=== PATIENT | female | born 1960 | race Caucasian/White ===

== ENCOUNTER 2019-10-10 14:52 | Emergency (ER) | payer BC ==
[~2019-10-10] VITALS: Ht 182.9 cm; Wt 81.6 kg
--- OUTSIDE RECORDS SUMMARY | 2019-10-10 14:55 | XMS REPORT | Summary of Care ---
Author Organization Unknown Address Unknown Phone Unavailable Encounter [facility](ADIEL) [id number] Date(s): 04/09/14 - 04/16/14 [facility] [address] [address] Discharge Disposition: Home Physician Attending: Felix Franco MD Physician Admitting: Felix Franco MD Physician_Referring: Felix Franco MD Reason for Visit [id number] Vital Signs 1 2 3 Most recent to oldest [Reference Range]: 182.88 cm (04/02/14 2:24 PM) Height 93.6 kg (04/10/14 4:43 AM) Current Weight 97.8 DegF (04/16/14 11:20 AM) 98.2 DegF (04/16/14 7:25 AM) 97.6 DegF (04/16/14 3:45 AM) Temperature Oral [96.4-99.1 DegF] 13 mmHg *LOW* (04/16/14 11:20 AM) 115 mmHg (04/16/14 7:25 AM) 109 mmHg (04/16/14 3:45 AM) Systolic Blood Pressure [90-140 mmHg] 78 mmHg (04/16/14 11:20 AM) 78 mmHg (04/16/14 7:25 AM) 71 mmHg (04/16/14 3:45 AM) Diastolic Blood Pressure [60-90 mmHg] 16 BRMIN (04/16/14 11:20 AM) 14 BRMIN (04/16/14 7:44 AM) 16 BRMIN (04/16/14 7:25 AM) Respiratory Rate [14-20 BRMIN] 76 bpm (04/16/14 11:20 AM) 74 bpm (04/16/14 7:25 AM) 66 bpm (04/16/14 3:45 AM) Peripheral Pulse Rate [60-100 bpm] 95.7 kg (04/10/14 10:58 AM) 90.909 kg (04/02/14 2:24 PM) Weight 27.18 m2 (04/02/14 2:24 PM) Body Mass Index Problem List Condition Effective Dates Status Health Status Informan t ADD (attention Active deficit disorder)(Confirmed) Anxiety(Confirmed) Active Back pain(Confirmed) Active Bipolar(Confirmed) Active Bulging Resolved disc(Confirmed) COPD(Confirmed) Active Dizziness(Confirmed) Active 1 GERD - Active Gastro-esophageal reflux disease(Confirmed) Hyperlipidemia(Confi Active rmed) Hypertension(Confirm Active ed) Migraine(Confirmed) Resolved Sciatica(Confirmed) Active Seizure(Confirmed) Resolved Smoker(Confirmed)2 Active Thalassemia(Confirme Active d) TIA (transient Resolved ischemic attack)(Confirmed)3 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 (Same as: Tylenol) Start Date: 04/09/14 Stop Date: 04/16/14 Status: Discontinued acetaminophen-hydrocodone 325 mg-5 mg oral tablet 1 tab, Route: PO, Drug Form: TAB, Dosing Weight 90.909, kg, Q4H, PRN Pain Score 4-6, Start date: 04/09/14 13:43:00, Duration: 30 day, Stop date: 05/09/14 13:42: 00 Notes: (Same as: [place] 325/5) Do not exceed 4gm/day of acetaminophen. Start Date: 04/09/14 Stop Date: 04/16/14 Status: Discontinued Adderall 20 mg, Route: PO, Drug form: TAB, QNoon, Dosing Weight 95.7, kg, Start date: 02/19 12:00:00, Duration: 30 day, Stop date: 05/16/14 12:00:00 Start Date: 04/17/14 Stop Date: 04/16/14 Status: Deleted Adderall C-II - Controlled Med PT's Own Med Adderall C-II - Controlled Med PT's Own Med, 20 mg, Drug form: MISC, Rou te: PO, QNoon, 04/17/14 12:00:00, Duration: 30 day, Stop date: 05/16/14 12:00:00 Start Date: 04/17/14 Stop Date: 04/16/14 Status: Canceled aspirin 81 mg tablet, enteric coated 81 mg, 1 tab, Route: PO, Drug form: ECTAB, Daily, Dosing Weight 90.909, kg, Star t date: 04/09/14 23:15:00, Duration: 30 day, Stop date: 05/09/14 9:00:00 Notes: Do not crush or chew.(Same As: Ecotrin) Start Date: 04/09/14 Stop Date: 04/16/14 Status: Discontinued atorvastatin 20 mg, 2 tab, Route: PO, Drug form: TAB, Bedtime, Dosing Weight 95.7, kg, Start date: 04/12/14 21:00:00, Duration: 30 day, Stop date: 05/11/14 21:00:00 Notes: (Same As: Lipitor) Start Date: 04/12/14 Stop Date: 04/16/14 Status: Discontinued carBAMazepine 400 mg, 2 tab, Route: PO, Drug form: TAB, QPM, Dosing Weight 95.7, kg, Start michael e: 04/14/14 17:00:00, Duration: 30 day, Stop date: 05/13/14 17:00:00 Notes: With food. (Same As: Tegretol) Start Date: 04/14/14 Stop Date: 04/16/14 Status: Discontinued carBAMazepine 600 mg, 3 tab, Route: PO, Drug form: ERTAB, QAM, Dosing Weight 90.909, kg, Start date: 04/14/14 9:00:00, Duration: 30 day, Stop date: 05/13/14 9:00:00 Notes: Do not crush or chew. (Same As: Tegretol XR) Start Date: 04/14/14 Stop Date: 04/16/14 Status: Discontinued carBAMazepine 300 mg, 3 tab, Route: PO, Drug form: ERTAB, BID, Dosing Weight 90.909, kg, Start date: 04/09/14 23:30:00, Duration: 30 day, Stop date: 05/09/14 9:30:00 Notes: Do not crush or chew. (Same As: Tegretol XR) Start Date: 04/09/14 Stop Date: 04/13/14 Status: Discontinued cefTRIAXone + Sodium Chloride 0.9% IV 100 mL 1 gm, Route: IVPB, [id number], Dosing Weight 95.7, kg, Start date: 04/13/14 22:00:0 0, Duration: 30 day, Stop date: 05/12/14 22:00:00 Notes: (Same As: Rocephin). Use with 100ml NS mini-bag PLUS and infuse over 30 min Start Date: 04/13/14 Stop Date: 04/16/14 Status: Discontinued clindamycin + Sodium Chloride 0.9% IV 100 mL 900 mg, 6 mL, Route: IVPB, Drug form: INJ, PRE OP, Dosing Weight 88.864, kg, Sta rt date: 04/02/14 15:00:00, Duration: 8 day, Stop date: 04/10/14 14:59:00 Notes: (Same As: Cleocin) Start Date: 04/02/14 Stop Date: 04/10/14 Status: Completed clonazePAM 2 mg, 2 tab, Route: PO, Drug form: TAB, Daily, Dosing Weight 95.7, kg, Start michael e: 04/17/14 9:00:00, Duration: 30 day, Stop date: 05/16/14 9:00:00 Notes: (Same As: KlonoPIN) Start Date: 04/17/14 Stop Date: 04/16/14 Status: Canceled clopidogrel 75 mg, 1 tab, Route: PO, Drug form: TAB, Daily, Dosing Weight 95.7, kg, Start da te: 04/17/14 9:00:00, Duration: 30 day, Stop date: 05/16/14 9:00:00 Notes: (Same As: Plavix) Start Date: 04/17/14 Stop Date: 04/16/14 Status: Canceled docusate sodium 100 mg oral capsule 100 mg, 1 cap, Route: PO, Drug form: CAP, BID, Dosing Weight 90.909, kg, Start d ate: 04/09/14 17:00:00, Duration: 30 day, Stop date: 05/09/14 9:00:00 Notes: (Same as: Colace) (Do Not Crush) Start Date: 04/09/14 Stop Date: 04/16/14 Status: Discontinued DuoNeb inhalation solution 3 ml, Route: INHALATION, Drug Form: SOLN, Dosing Weight 95.7, kg, PRN, PRN Respi ratory Protocol, Start date: 04/11/14 11:52:00, Duration: 30 day, Stop date: 07/21 11:51:00 Notes: (Same as: Duoneb) Start Date: 04/11/14 Stop Date: 04/16/14 Status: Discontinued enoxaparin 40 mg, Route: SUB-Q, Drug form: INJ, Q24H, Dosing Weight 88.864, kg, Start date: 04/09/14 14:00:00, Duration: 30 day, Stop date: 05/08/14 14:00:00 Start Date: 04/09/14 Stop Date: 04/09/14 Status: Discontinued fentaNYL 25 microgram, Route: IVP, Q5Min, Dosing Weight 90.909, kg, PRN Pain Score 4-6, S tart date: 04/09/14 13:43:00, Duration: 4 doses or times, Stop date: Limited # o f times Start Date: 04/09/14 Stop Date: 04/09/14 Status: Discontinued flumazenil 0.2 mg, Route: IVP, PRN, Dosing Weight 90.909, kg, PRN Benzodiazepine Reversal, Initial dose, Start date: 04/09/14 13:43:00, Duration: 30 day, Stop date: 13:42:00 Start Date: 04/09/14 Stop Date: 04/09/14 Status: Discontinued FLUoxetine See Instructions, 0 Refill(s) Start Date: 04/02/14 Status: Ordered folic acid 0.4 mg, 1 tab, Route: PO, Drug form: TAB, Daily, Dosing Weight 95.7, kg, Start d ate: 04/17/14 9:00:00, Duration: 30 day, Stop date: 05/16/14 9:00:00 Start Date: 04/17/14 Stop Date: 04/16/14 Status: Canceled Geodon 160 mg, 2 cap, Route: PO, Drug form: CAP, Bedtime, Dosing Weight 90.909, kg, Sta rt date: 04/12/14 21:00:00, Duration: 30 day, Stop date: 05/11/14 21:00:00 Notes: (Same As: Cindy) Start Date: 04/12/14 Stop Date: 04/16/14 Status: Discontinued Geodon 80 mg, 1 cap, Route: PO, Drug form: CAP, Bedtime, Dosing Weight 90.909, kg, Star t date: 04/09/14 23:30:00, Duration: 30 day, Stop date: 05/09/14 21:00:00 Notes: (Same As: Cindy) Start Date: 04/09/14 Stop Date: 04/12/14 Status: Discontinued hydrALAZINE 10 mg, 0.5 mL, Route: IVP, Drug form: INJ, Q6H, Dosing Weight 88.864, kg, PRN El evated BP, Start date: 04/09/14 13:43:00, Duration: 30 day, Stop date: 05/09/14 13:42:00, SBP>160 mmHg. Notes: (Same as: Apresoline)Push over 5 minutes Start Date: 04/09/14 Stop Date: 04/16/14 Status: Discontinued hydromorphone 0.3 mg, 0.3 mL, Route: IVP, Drug form: INJ, Q3H, Dosing Weight 90.909, kg, PRN P ain Score 4-6, Start date: 04/09/14 13:43:00, Duration: 30 day, Stop date: 05/09 13:42:00 Start Date: 04/09/14 Stop Date: 04/16/14 Status: Discontinued Imitrex 50 mg oral tablet 50 mg, 2 tab, Route: PO, Drug form: TAB, ONCE, Dosing Weight 95.7, kg, PRN Heada aki 4-6, Start date: 04/16/14 15:27:00 Notes: (Same As: Imitrex) Start Date: 04/16/14 Stop Date: 04/16/14 Status: Completed influenza virus vaccine, inactivated 0.5 ml, Route: IM, Drug Form: SUSP, Daily, Start date: 04/10/14 9:00:00, Duratio n: 1 doses or times, Stop date: 04/10/14 9:00:00 Notes: (Same as: Fluzone Quadrivalent) Start Date: 04/10/14 Stop Date: 04/09/14 Status: Canceled KlonoPIN 1 mg, 1 tab, Route: PO, Drug form: TAB, BID, Dosing Weight 90.909, kg, Start michael e: 04/09/14 23:30:00, Duration: 30 day, Stop date: 05/09/14 17:00:00 Notes: (Same As: KlonoPIN) Start Date: 04/09/14 Stop Date: 04/10/14 Status: Discontinued KlonoPIN 1 mg, 1 tab, Route: PO, Drug form: TAB, BID, Dosing Weight 90.909, kg, Start michael e: 04/13/14 9:00:00, Duration: 30 day, Stop date: 05/12/14 17:00:00 Notes: (Same As: KlonoPIN) Start Date: 04/13/14 Stop Date: 04/16/14 Status: Discontinued KlonoPIN 0.5 mg, 1 tab, Route: PO, Drug form: TAB, BID, Dosing Weight 90.909, kg, Start d ate: 04/11/14 9:00:00, Duration: 30 day, Stop date: 05/10/14 17:00:00 Notes: (Same As: KlonoPIN) Start Date: 04/11/14 Stop Date: 04/12/14 Status: Discontinued Lactated Ringers Injection IV 1000 mL 1,000 mL, Rate: 25 ml/hr, Infuse over: 40 hr, Route: IV, Dosing Weight 90.909 kg , Total Volume: 1,000, Start date: 04/09/14 11:35:00, Duration: 30 day, Stop michael e: 05/09/14 11:34:00 Start Date: 04/09/14 Stop Date: 04/09/14 Status: Discontinued lithium 600 mg, 2 cap, Route: PO, Drug form: CAP, TID, Dosing Weight 95.7, kg, Start michael e: 04/16/14 17:00:00, Duration: 30 day, Stop date: 05/16/14 16:00:00 Notes: Give with food. (Same as: [place] Carbonate) Start Date: 04/16/14 Stop Date: 04/16/14 Status: Discontinued lithium 600 mg oral capsule 600 mg = 1 cap, PO, TID, 0 Refill(s) Start Date: 04/02/14 Status: Ordered lithium carbonate 300 mg, 1 cap, Route: PO, Drug form: CAP, BID, Dosing Weight 90.909, kg, Start d ate: 04/14/14 9:00:00, Duration: 30 day, Stop date: 05/13/14 17:00:00 Notes: Give with food. (Same as: [place] Carbonate) Start Date: 04/14/14 Stop Date: 04/16/14 Status: Discontinued lithium carbonate 300 mg, 1 cap, Route: PO, Drug form: CAP, TID, Dosing Weight 90.909, kg, Start d ate: 04/13/14 9:00:00, Duration: 30 day, Stop date: 05/12/14 17:00:00 Notes: Give with food. (Same as: [place] Carbonate) Start Date: 04/13/14 Stop Date: 04/13/14 Status: Discontinued lithium carbonate 150 mg, 1 cap, Route: PO, Drug form: CAP, TID, Dosing Weight 90.909, kg, Start d ate: 04/09/14 23:30:00, Duration: 30 day, Stop date: 05/09/14 17:00:00 Notes: Give with food. (Same as: [place] Carbonate) Start Date: 04/09/14 Stop Date: 04/12/14 Status: Discontinued Lovenox 40 mg, 0.4 mL, Route: SUB-Q, Drug form: INJ, [id number], Dosing Weight 88.864, kg, Start date: 04/10/14 6:00:00, Duration: 30 day, Stop date: 05/09/14 6:00:00 Notes: (Same as: Lovenox) Start Date: 04/10/14 Stop Date: 04/16/14 Status: Discontinued morphine Sulfate 2 mg, Route: IVP, Q5Min, Dosing Weight 90.909, kg, PRN Pain Score 4-6, Start michael e: 04/09/14 13:43:00, Duration: 5 doses or times, Stop date: Limited # of times Start Date: 04/09/14 Stop Date: 04/09/14 Status: Discontinued naloxone 0.04 mg, Route: IVP, Q2MIN, Dosing Weight 90.909, kg, PRN Narcotic Reversal, Sta rt date: 04/09/14 13:43:00, Duration: 8 doses or times, Stop date: Limited # of times Start Date: 04/09/14 Stop Date: 04/09/14 Status: Discontinued Neurontin 100 mg oral capsule 200 mg, 2 cap, Route: PO, Drug form: CAP, BID, Dosing Weight 95.7, kg, Start michael e: 04/14/14 17:00:00, Duration: 30 day, Stop date: 05/14/14 9:00:00 Notes: (Same as: Neurontin) Start Date: 04/14/14 Stop Date: 04/16/14 Status: Discontinued Neurontin 100 mg oral capsule 100 mg, 1 cap, Route: PO, Drug form: CAP, BID, Dosing Weight 95.7, kg, Start michael e: 04/13/14 17:00:00, Duration: 30 day, Stop date: 05/13/14 9:00:00 Notes: (Same as: Neurontin) Start Date: 04/13/14 Stop Date: 04/14/14 Status: Discontinued [place] 5/325 oral tablet 1-2 tab, PO, Q4H, Pain, # 50 tab, 0 Refill(s), given to patient Start Date: 04/16/14 Stop Date: 04/21/14 Status: Ordered NURSE: Plese bring PT's own med to Pharmacy to be verified NURSE: Plese bring PT's own med to Pharmacy to be verified, `, Drug form: MISC, Route: MISC, RBID, 04/16/14 16:12:00, Duration: 30 day, Stop date: 05/16/14 8:00 :00 Start Date: 04/16/14 Stop Date: 04/16/14 Status: Discontinued Ofirmev 1,000 mg, Route: IV, Drug form: INJ, ONCE, Dosing Weight 90.909, kg, PRN Pain Sc ore 1-3, for > or = 50 kg, Start date: 04/09/14 14:49:00 Start Date: 04/09/14 Stop Date: 04/09/14 Status: Completed ondansetron 4 mg, Route: IVP, ONCE, Dosing Weight 90.909, kg, PRN Nausea & Vomiting, Start date: 04/09/14 13:43:00 Start Date: 04/09/14 Stop Date: 04/09/14 Status: Discontinued Phenergan + Sodium Chloride 0.9% IV 50 mL 12.5 mg, 0.5 mL, Route: IVPB, Q8H, Dosing Weight 95.7, kg, PRN as needed for gayathri sea/vomiting, Start date: 04/13/14 20:43:00, Duration: 30 day, Stop date: 20:42:00 Notes: Do not give IV push. (Same as: Phenergan) Start Date: 04/13/14 Stop Date: 04/16/14 Status: Discontinued Phenergan + Sodium Chloride 0.9% IV 50 mL 25 mg, 1 mL, Route: IVPB, ONCE, Dosing Weight 95.7, kg, Start date: 04/12/14 8:0 7:00, Stop date: 04/12/14 8:07:00 Notes: Do not give IV push. (Same as: Phenergan) Start Date: 04/12/14 Stop Date: 04/12/14 Status: Completed Plavix 75 mg, 1 tab, Route: PO, Drug form: TAB, Daily, Dosing Weight 90.909, kg, Start date: 04/09/14 23:30:00, Duration: 30 day, Stop date: 05/09/14 9:00:00 Notes: (Same As: Plavix) Start Date: 04/09/14 Stop Date: 04/16/14 Status: Discontinued Saline Flush 0.9% 10 ml, Route: IVP, Drug Form: INJ, Dosing Weight 90.909, kg, PRN, PRN Line Flush , Start date: 04/09/14 13:43:00, Duration: 30 day, Stop date: 05/09/14 13:42:00 Notes: (Same as: BD Posiflush) Start Date: 04/09/14 Stop Date: 04/16/14 Status: Discontinued Sodium Chloride 0.9% IV 1,000 mL 1,000 mL, Rate: 100 ml/hr, Infuse over: 10 hr, Route: IV, Dosing Weight 90.909 k g, Total Volume: 1,000, Start date: 04/09/14 13:43:00, Duration: 30 day, Stop da te: 05/09/14 13:42:00 Start Date: 04/09/14 Stop Date: 04/10/14 Status: Discontinued Spiriva 18 mcg inhalation capsule 18 microgram, 1 inhalation, Route: INHALATION, Drug form: CAP, Daily, Dosing [place] ght 95.7, kg, Start date: 04/17/14 9:00:00, Duration: 30 day, Stop date: 9:00:00 Notes: (Same As: Spiriva). Start Date: 04/17/14 Stop Date: 04/16/14 Status: Canceled Spiriva 18 mcg inhalation capsule 18 microgram = 1 ea, INHALATION, Daily, 0 Refill(s) Start Date: 04/02/14 Status: Ordered Tegretol 600 mg, Route: PO, Drug form: TAB, Bedtime, Dosing Weight 95.7, kg, Start date: 04/16/14 21:00:00, Duration: 30 day, Stop date: 05/15/14 21:00:00 Start Date: 04/16/14 Stop Date: 04/16/14 Status: Canceled tiotropium 18 microgram, 1 inhalation, Route: INHALATION, Drug form: CAP, Daily, Dosing [place] ght 95.7, kg, Start date: 04/12/14 9:00:00, Duration: 30 day, Stop date: 9:00:00 Notes: (Same As: Spiriva). Start Date: 04/12/14 Stop Date: 04/16/14 Status: Discontinued trazodone 50 mg oral tablet 300 mg, 6 tab, Route: PO, Drug form: TAB, Bedtime, Dosing Weight 95.7, kg, Start date: 04/13/14 21:00:00, Duration: 30 day, Stop date: 05/12/14 21:00:00 Notes: (Same As: Desyrel) Start Date: 04/13/14 Stop Date: 04/16/14 Status: Discontinued Ventolin HFA 90 mcg/inh inhalation aerosol with adapter 2 puff, Route: INHALATION, Drug Form: AERO/A, Dosing Weight 95.7, kg, QID, Start date: 04/16/14 17:00:00, Duration: 30 day, Stop date: 05/16/14 13:00:00 Notes: Albuterol 90 microgram/inh 8gm HFA Same as: Ventolin, Proventil Start Date: 04/16/14 Stop Date: 04/16/14 Status: Discontinued Ventolin HFA 90 mcg/inh inhalation aerosol with adapter 2 puff, INHALATION, QID, 0 Refill(s) Start Date: 04/02/14 Status: Ordered Xanax 0.5 mg oral tablet 1 mg, 1 tab, Route: PO, Drug form: TAB, TID, Dosing Weight 90.909, kg, PRN Anxie ty, Start date: 04/09/14 21:44:00, Duration: 30 day, Stop date: 05/09/14 21:43:0 0 Notes: With food or milk(Same as: Xanax) Start Date: 04/09/14 Stop Date: 04/13/14 Status: Discontinued Xanax 0.5 mg oral tablet 1 mg, 1 tab, Route: PO, Drug form: TAB, Q6H, Dosing Weight 90.909, kg, PRN Anxie ty, Start date: 04/13/14 20:04:00, Stop date: 05/09/14 21:42:00 Notes: With food or milk(Same as: Xanax) Start Date: 04/13/14 Stop Date: 04/16/14 Status: Discontinued Results BLOOD BANK RESULTS 1 2 3 Most recent to oldest [Reference Range]: O POS *Unknown* (04/02/14 2:50 PM) ABO/Rh Negative (04/02/14 2:50 PM) Antibody Scrn ELECTROLYTES 1 2 3 Most recent to oldest [Reference Range]: 138 mEq/L (04/12/14 3:52 AM) 139 mEq/L (04/11/14 6:22 AM) 142 mEq/L (04/10/14 4:40 AM) Sodium Lvl [135-145 mEq/L] 3.8 mEq/L (04/12/14 3:52 AM) 3.5 mEq/L (04/11/14 6:22 AM) 3.9 mEq/L (04/10/14 4:40 AM) Potassium Lvl [3.5-5.1 mEq/L] 101 mEq/L (04/12/14 3:52 AM) 104 mEq/L (04/11/14 6:22 AM) 108 mEq/L (04/10/14 4:40 AM) Chloride Lvl [95-109 mEq/L] 28 mEq/L (04/12/14 3:52 AM) 27 mEq/L (04/11/14 6:22 AM) 27 mEq/L (04/10/14 4:40 AM) CO2 [24-32 mEq/L] 12.8 mEq/L (04/12/14 3:52 AM) 11.5 mEq/L (04/11/14 6:22 AM) 10.9 mEq/L (04/10/14 4:40 AM) AGAP [10.0-20.0 mEq/L] CHEM PANEL 1 2 3 Most recent to oldest [Reference Range]: 0.7 mg/dL (04/12/14 3:52 AM) 0.7 mg/dL (04/11/14 6:22 AM) 0.9 mg/dL (04/10/14 4:40 AM) Creatinine Lvl [0.5-1.4 mg/dL] 100 mL/min/1.73m2 1 *NA* (04/12/14 3:52 AM) 100 mL/min/1.73m2 2 *NA* (04/11/14 6:22 AM) 74 mL/min/1.73m2 3 *NA* (04/10/14 4:40 AM) eGFR 7 mg/dL (04/12/14 3:52 AM) 5 mg/dL *LOW* (04/11/14 6:22 AM) 6 mg/dL *LOW* (04/10/14 4:40 AM) BUN [7-22 mg/dL] 138 mg/dL 4 *HI* (04/12/14 3:52 AM) 122 mg/dL 5 *HI* (04/11/14 6:22 AM) 112 mg/dL 6 *HI* (04/10/14 4:40 AM) Glucose Lvl [70-99 mg/dL] 9.0 mg/dL (04/12/14 3:52 AM) 8.7 mg/dL (04/11/14 6:22 AM) 8.0 mg/dL *LOW* (04/10/14 4:40 AM) Calcium Lvl [8.5-10.5 mg/dL] 1Result Comment: The eGFR is calculated using the CKD-EPI formula. In most young, healthy individuals the eGFR will be >90 mL/min/1.73m2. The eGFR declines with age. An eGFR of 60-89 may be normal in some populations, particularly the elderly, for whom the CKD-EPI formula has not been extensively validated. Use of the eGFR is not recommended in the following populations: Individuals with unstable creatinine concentrations, including patients and those with serious co-morbid conditions. Patients with extremes in muscle mass or diet. The data above are obtained from the National Kid[employer] Disease Education Program ( NK[employer]) which additionally recommends that when the eGFR is used in patients with extremes of body mass index for purposes of drug dosing, the eGFR should be mul tiplied by the estimated BMI. 2Result Comment: The eGFR is calculated using the CKD-EPI formula. In most young, healthy individuals the eGFR will be >90 mL/min/1.73m2. The eGFR declines with age. An eGFR of 60-89 may be normal in some populations, particularly the elderly, for whom the CKD-EPI formula has not been extensively validated. Use of the eGFR is not recommended in the following populations: Individuals with unstable creatinine concentrations, including patients and those with serious co-morbid conditions. Patients with extremes in muscle mass or diet. The data above are obtained from the National Kid[employer] Disease Education Program ( NKDEP) which additionally recommends that when the eGFR is used in patients with extremes of body mass index for purposes of drug dosing, the eGFR should be mul tiplied by the estimated BMI. 3Result Comment: The eGFR is calculated using the CKD-EPI formula. In most young, healthy individuals the eGFR will be >90 mL/min/1.73m2. The eGFR declines with age. An eGFR of 60-89 may be normal in some populations, particularly the elderly, for whom the CKD-EPI formula has not been extensively validated. Use of the eGFR is not recommended in the following populations: Individuals with unstable creatinine concentrations, including patients and those with serious co-morbid conditions. Patients with extremes in muscle mass or diet. The data above are obtained from the National Kid[employer] Disease Education Program ( [employer]DEP) which additionally recommends that when the eGFR is used in patients with extremes of body mass index for purposes of drug dosing, the eGFR should be mul tiplied by the estimated BMI. 4Interpretive Data: Adult reference range values reflect the clinical guidelines of the [employer]. 5Interpretive Data: Adult reference range values reflect the clinical guidelines of the [employer]. 6Interpretive Data: Adult reference range values reflect the clinical guidelines of the [employer]. TOXICOLOGY 1 2 3 Most recent to oldest [Reference Range]: 9.6 ug/ml (04/13/14 10:35 AM) Carbamaz Lvl [8.0-12.0 ug/ml] METAL 1 2 3 Most recent to oldest [Reference Range]: 0.50 mEq/L (04/13/14 10:35 AM) [place] Lvl [0.50-1.50 mEq/L] HEMATOLOGY 1 2 3 Most recent to oldest [Reference Range]: 6.8 K/CMM (04/12/14 3:52 AM) 6.9 K/CMM (04/11/14 6:22 AM) 7.0 K/CMM (04/10/14 4:40 AM) WBC [3.7-10.4 K/CMM] 5.07 M/CMM (04/12/14 3:52 AM) 4.51 M/CMM (04/11/14 6:22 AM) 4.29 M/CMM (04/10/14 4:40 AM) RBC [4.20-5.40 M/CMM] 10.5 g/dL *LOW* (04/12/14 3:52 AM) 9.3 g/dL *LOW* (04/11/14 6:22 AM) 8.9 g/dL *LOW* (04/10/14 4:40 AM) Hgb [12.0-16.0 g/dL] 33.7 % *LOW* (04/12/14 3:52 AM) 30.3 % *LOW* (04/11/14 6:22 AM) 28.9 % *LOW* (04/10/14 4:40 AM) Hct [36.0-48.0 %] 66.6 fL *LOW* (04/12/14 3:52 AM) 67.2 fL *LOW* (04/11/14 6:22 AM) 67.3 fL *LOW* (04/10/14 4:40 AM) MCV [80.0-98.0 fL] 20.7 pg *LOW* (04/12/14 3:52 AM) 20.7 pg *LOW* (04/11/14 6:22 AM) 20.8 pg *LOW* (04/10/14 4:40 AM) MCH [27.0-31.0 pg] 31.1 g/dL *LOW* (04/12/14 3:52 AM) 30.8 g/dL *LOW* (04/11/14 6:22 AM) 30.9 g/dL *LOW* (04/10/14 4:40 AM) MCHC [32.0-36.0 g/dL] 16.0 % *HI* (04/12/14 3:52 AM) 16.2 % *HI* (04/11/14 6:22 AM) 16.0 % *HI* (04/10/14 4:40 AM) RDW [11.5-14.5 %] 190 K/CMM (04/12/14 3:52 AM) 176 K/CMM (04/11/14 6:22 AM) 156 K/CMM (04/10/14 4:40 AM) Platelet [133-450 K/CMM] 9.3 fL (04/12/14 3:52 AM) 9.2 fL (04/11/14 6:22 AM) 9.5 fL (04/10/14 4:40 AM) MPV [7.4-10.4 fL] 57.8 % (04/12/14 3:52 AM) 63.2 % (04/11/14 6:22 AM) 70.8 % (04/10/14 4:40 AM) Segs [45.0-75.0 %] 29.5 % (04/12/14 3:52 AM) 25.1 % (04/11/14 6:22 AM) 18.5 % *LOW* (04/10/14 4:40 AM) Lymphocytes [20.0-40.0 %] 7.5 % (04/12/14 3:52 AM) 5.9 % (04/11/14 6:22 AM) 5.6 % (04/10/14 4:40 AM) Monocytes [2.0-12.0 %] 4.5 % *HI* (04/12/14 3:52 AM) 5.2 % *HI* (04/11/14 6:22 AM) 4.7 % *HI* (04/10/14 4:40 AM) Eosinophils [0.0-4.0 %] 0.7 % (04/12/14 3:52 AM) 0.6 % (04/11/14 6:22 AM) 0.4 % (04/10/14 4:40 AM) Basophils [0.0-1.0 %] 3.9 K/CMM (04/12/14 3:52 AM) 4.3 K/CMM (04/11/14 6:22 AM) 4.9 K/CMM (04/10/14 4:40 AM) Segs-Bands # [1.5-8.1 K/CMM] 2.0 K/CMM (04/12/14 3:52 AM) 1.7 K/CMM (04/11/14 6:22 AM) 1.3 K/CMM (04/10/14 4:40 AM) Lymphocytes # [1.0-5.5 K/CMM] 0.5 K/CMM (04/12/14 3:52 AM) 0.4 K/CMM (04/11/14 6:22 AM) 0.4 K/CMM (04/10/14 4:40 AM) Monocytes # [0.0-0.8 K/CMM] 0.3 K/CMM (04/12/14 3:52 AM) 0.4 K/CMM (04/11/14 6:22 AM) 0.3 K/CMM (04/10/14 4:40 AM) Eosinophils # [0.0-0.5 K/CMM] 0.1 K/CMM (04/02/14 2:50 PM) Basophils # [0.0-0.2 K/CMM] 3+ *NA* (04/12/14 3:52 AM) 3+ *NA* (04/11/14 6:22 AM) 3+ *NA* (04/10/14 4:40 AM) Microcyte [None Seen] 12.9 seconds (04/02/14 2:50 PM) PT [12.0-14.7 seconds] 0.97 7 (04/02/14 2:50 PM) INR [0.85-1.17] 30.8 seconds 8 (04/02/14 2:50 PM) PTT [22.9-35.8 seconds] 7Interpretive Data: RECOMMENDED RANGES FOR PROTIME INR: 2.0-3.0 for most medical and surgical thromboembolic states. 2.5-3.5 for artificial heart valves and recurrent embolism. INR SHOULD BE USED ONLY FOR PATIENTS ON STABLE ANTICOAGULANT THERAPY. 8Interpretive Data: Heparin Therapeutic Range: 57 - 92 Seconds Medications Administered During Your Visit No data available for this section Immunizations No data available for this section Procedures Procedure Type Body Site Date of Procedure Related Diag nosis Carotid endarterectomy1 04/09/14 12:00 AM 1left Social History Social History Type Response Substance Abuse Use: None Employment/School Highest education: [employer]1 Alcohol Use: Never Smoking Status Current every day smoker, T ype: Cigarettes, Exposure to Tobacco Smoke None, Cigarette Smoking Last 365 Days Yes, Re g Smoking Cessation Counseling No2 1Associate degree 2quit 04/07/2014 Assessment and Plan Extracted from: Title: Clinical Document Author: John Talley MD Date: 04/16/14 PROGRESS NOTE Psychiatry JOHN TALLEY M.D. Patient seen, Events noted. SUBJECTIVE : Feels fair. OBJECTIVE : She is alert, awake, mood better, c/o headaches. no agitation, no s/e of meds. d/w . Allergies: penicillins Labs (Last four charted values) WBC 6.8(APR 12)6.9(APR 11)7.0(APR 10)7.3(APR 02) Hgb L 10.5(APR 12)L 9.3(APR 11)L 8.9(APR 10)L 10.0(APR 02) Hct L 33.7(APR 12)L 30.3(APR 11)L 28.9(APR 10)L 32.3(APR 02) Plt 190(APR 12)176(APR 11)156(APR 10)143(APR 09) Na 138(APR 12)139(APR 11)142(APR 10)140(APR 02) K 3.8(APR 12)3.5(APR 11)3.9(APR 10)4.2(APR 02) CO2 28(APR 12)27(APR 11)27(APR 10)30(APR 02) Cl 101(APR 12)104(APR 11)108(APR 10)104(APR 02) Cr 0.7(APR 12)0.7(APR 11)0.9(APR 10)1.3(APR 09) BUN 7(APR 12)L 5(APR 11)L 6(APR 10)8(APR 02) Glucose Random H 138(APR 12)H 122(APR 11)H 112(APR 10)97(APR 02) Ca 9.0(APR 12)8.7(APR 11)L 8.0(APR 10)9.0(APR 02) PT 12.9(APR 02) INR 0.97(APR 02) PTT 30.8(APR 02) Scheduled Meds (): 04/09/14 aspirin (aspirin 81 mg tablet, enteric coated) 81 mg PO Daily 04/12/14 atorvastatin 20 mg PO Bedtime 04/14/14 carBAMazepine 600 mg PO QAM 04/14/14 carBAMazepine 400 mg PO QPM 04/13/14 cefTRIAXone + Sodium Chloride 0 .9% IV 100 mL 1 gm IVPB [id number] 200 ml/hr 04/13/14 clonazePAM (KlonoPIN) 1 mg PO B ID 04/09/14 clopidogrel (Plavix) 75 mg PO D aily 04/09/14 docusate (docusate sodium 100 m g oral capsule) 100 mg PO BID 04/10/14 enoxaparin (Lovenox) 40 mg SUB- Q [id number] 04/14/14 gabapentin (Neurontin 100 mg or al capsule) 200 mg PO BID 04/14/14 lithium (lithium carbonate) 300 mg PO BID 04/12/14 tiotropium 18 microgram INHALAT ION Daily 04/13/14 trazodone (trazodone 50 mg oral tablet) 300 mg PO Bedtime 04/12/14 ziprasidone (Geodon) 160 mg PO Bedtime MENTAL STATUS EXAM : Alert, awake, mood depressed, anxious, no hallucinations. ASSESSMENT : 1. Bipolar disorder, depressed mood. 2. Rule out schizoaffective disorder. 3. Attention deficit hyperactive disord er by history. PLAN : She is feeling better. COntinue [id number] 600 mg po qam and 400 mg po 5pm.. Continue [id number] mg po bedtime. Conitnue lithium t300 mg po BID Continue klonopin 1 mg po BID Continue xanax 1 mg po q6h PRN for anxiety. Continue trazadone 300 mg po qhs. monitor mood and anxiety symtpoms. supportive psychotherapy to improve coping skills.
--- OUTSIDE RECORDS SUMMARY | 2019-10-10 14:55 | XMS REPORT | Continuity of Care Document ---
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 Name Role Phone [employer] Unavailable Un available Problems Problem Status Onset Date Classification Date Reported Comments Source SYNCOPE, CHEST PAIN, PNEUMONIA Active 06/20/2019 [facility] CHEST PAIN Active 06/20/2019 [facility] NEW ONSET ATAXIA Active 09/17/2015 [facility] DIZZINESS Active 09/17/2015 [facility] SEIZURE Active 02/28/2015 [facility] UNK Active 1 05/29/2013 [facility] 433.10/84075 Active 03/29/2014 [facility] STROKE Active 01/30/2014 [facility] CVA Active 0 01/30/2014 [facility] Attention deficit hyperactivity disorder , predominantly inattentive type (disorder) Active Problem 06/23/2019 [facility] Anxiety (finding) Active Problem 06/23/2019 [facility] Bipolar (qualifier value) Acti ve Problem [facility] Intervertebral disc prolapse (disorder) Resolved Problem 06/23/2019 [facility] Chronic obstructive lung disease (disorder) Active Problem 06/23/2019 [facility] Sciatica (disorder) Active Problem 06/23/2019 [facility] Seizure (finding) Resolved Problem 06/23/2019 [facility] Dislocation of temporomandibular joint (disorder) Resolved Problem 06/23/2019 [facility] Backache (finding) Active Problem 06/23/2019 [facility] Dizziness (finding) Active Problem 06/23/2019 [facility] Gastroesophageal reflux disease (disorder) Active Problem 06/23/2019 [facility] Hyperlipidemia (disorder) Acti ve Problem [facility] Hypertensive disorder, systemic arterial (disorder) Active Problem 06/23/2019 [facility] Migraine (disorder) Resolved Problem 06/23/2019 [facility] Smoker (finding) Active Problem 06/23/2019 1 pack/day [facility] Thalassemia (disorder) Active Problem 06/23/2019 [facility] Transient ischemic attack (disorder) [facility] OCL CRTD ART WO INFRCT Active [facility] ATAXIA, UNSPECIFIED Active [facility] SYNCOPE AND COLLAPSE Active [facility] CHEST PAIN, UNSPECIFIED Active [facility] PNEUMONIA, UNSPECIFIED ORGANISM Active [facility] Medications Medication Details Route Status Patient Instructions Ordering Provider Order Date Source Zoloft Notes: (Same as: Zolof t) Inactive 06/22/2019 [facility] Azithromycin Notes: (Same As: Zithromax IV) Inactive 06/22/2019 [facility] Ceftriaxone Notes: (Same As: Simran watkins). Use with 100 mL NS and infuse over 30 min MEDICATION WASTE Product Size: 1000 mg Product Wasted: ___ mg Inactive 06/22/2019 [facility] Levofloxacin 750 MG Oral Tablet [Levaquin] 750 mg = 1 tab, PO, Daily, X 5 day, # 5 tab, 0 Refill(s), Pharmacy: [facility]/pharmacy #[id number] Active 06/21/2019 [facility] APAP/butalbital/caffeine Notes : (ekvnojqvntgil-evvxybgxer-vaakngtw 325-50-40mg) Do not exceed 4 gm/day of acetaminophen. 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 (Same As: Ecotrin) Inactive 06/21/2019 [facility] Trulicity Pen 1.5 mg/0.5 mL subcutaneous solution Trulicity Pen 1.5 mg/0.5 mL subcutaneous solution, 1.5 mg, Route: SUB-Q, QThu, 06/21/19 9:00:00 D[employer]ITAL MARKETING PROJECT MANAGER, Duration: 30 day, Stop date: 07/19/19 9:00:00 CDT Inactive 06/21/2019 [facility] gabapentin 600 MG Oral Tablet Notes: (Same as: Neurontin) Inactive 06/21/2019 [facility] Tresiba Tresiba, 15 unit, Rout e: SUB-Q, Daily, 06/21/19 9:00:00 D[employer]ITAL MARKETING PROJECT MANAGER, Duration: 30 day, Stop date: 07/20/19 9:00:00 CDT No Longer Active 06/21/2019 [facility] Metformin Notes: (Same as: Glu cophage) Take with meal Inactive 06/21/2019 [facility] insulin glargine Notes: (Same as: Lantus) Do not hold insulin without contacting prescriber WASTE: F/P - Black; E - Municipal Trash Bin "single patient use only" Stable for 28 days at room temperature Expires in days from Date Inactive 06/21/2019 [facility] RN: Pls bring pt own trulicity to pharmacy for label. 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 PROJECT MANAGER, Duration: 30 day, Stop date: 07/20/19 16:00:00 CDT, 0 Inactive 06/21/2019 [facility] Tums Notes: (Same As: Tums) Ca lcium Carbonate 500 mg = 200 mg elemental calcium Dose = mg calcium carbonate ( mg elemental calcium) No Longer Active 06/21/2019 [facility] Seroquel Notes: (Same as: SERO quel) No Longer Active 06/21/2019 [facility] Trazodone Notes: (Same As: Bob yrel) No Longer Active 06/21/2019 [facility] Saline Flush 0.9% Notes: (Same as: BD Posiflush) No Longer Active 06/21/2019 [facility] 0.5 ML dulaglutide 3 MG/ML Prefilled Syr nerissa [Trulicity] 1.5 mg, SUB-Q, QThu, 0 Refill(s) Active 06/21/2019 [facility] Tresiba 15 unit, SUB-Q, Daily, 0 Refill(s) Active 06/21/2019 [facility] quetiapine 200 MG Oral Tablet [Seroquel] 200 mg = 1 tab, PO, Bedtime, 0 Refill(s) Active 06/21/2019 [facility] Trazodone See Instructions, PO , 0 Refill(s) Active 06/21/2019 [facility] non-formulary See Instructions , Refill(s) 0 Active 06/21/2019 [facility] busPIRone 7.5 mg oral tablet 7 .5 mg = 1 tab, PO, BID, 0 Refill(s) Active 06/21/2019 [facility] gabapentin 600 MG Oral Tablet 600 mg = 1 tab, PO, TID, # 270 tab, 0 Refill(s) Active 06/21/2019 [facility] Lovenox Notes: (Same as: Loven ox) No Longer Active 06/21/2019 [facility] Dextrose 50% Syringe (D50W) 12 .5 gm, 25 mL, Route: IVP, Drug Form: INJ, Dosing Weight 95.455, kg, PRN, PRN Blood Glucose Results, Start date: 06/20/19 17:38:00 D[employer]ETING PROJECT 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 WASTE: F/P - Black; E - Municipal Trash Bin Stable for 28 days at room temperature. Expires in days from Date No Longer Active 06/20/2019 [facility] Dextrose 50% Syringe (D50W) 25 mL, Route: IVP, Dosing Weight 95.455, kg, PRN, PRN Blood Glucose Results, Start date: 06/20/19 17:37:00 DIGITAL MARKETING PROJECT MANAGER, Duration: 30 day, Stop date: 07/20/19 18:36:00 CDT Inactive 06/20/2019 [facility] Glucagon 1 mg, Route: IM, PRN, Dosing Weight 95.455, kg, PRN Blood Glucose Results, Start date: 06/20/19 17:37:00 D[employer]ITAL MARKETING PROJECT MANAGER, Duration: 30 day, Stop date: 07/20/19 18:36:00 CDT Inactive 06/20/2019 [facility] Docusate Notes: (Same as: Cola ce) (Do Not Crush) No Longer Active 06/20/2019 [facility] Ondansetron Notes: (Same as: Julisa tomas) MEDICATION WASTE Product Size: 4 mg Product Wasted: ___ mg No Longer Active 06/20/2019 [facility] Melatonin Notes: (Same as: Johana atonin) No Longer Active 06/20/2019 [facility] Acetaminophen Notes: Do not ex ceed 4 gm/day. (Same as: Tylenol) No Longer Active 06/20/2019 [facility] Lactated Ringers IV 1,000 mL 1 ,000 mL, Rate: 75 ml/hr, Infuse over: 13.3 hr, Route: IV, Dosing Weight 95.455 kg, Total Volume: 1,000, Start date: 06/20/19 17:37:00 D[employer]ITAL MARKETING PROJECT MANAGER, Duration: 30 day, Stop date: 07/20/19 17:36:00 CDT, 2.22, m2, 0 No Longer Active 06/20/2019 [facility] Saline Flush 0.9% 10 ml, Route : IVP, Drug Form: INJ, Dosing Weight 95.455, kg, PRN, PRN Line Flush, Start date: 06/20/19 17:37:00 DIGITAL MARKETING PROJECT MANAGER, Duration: 30 day, Stop date: 07/20/19 18:36:00 CDT Inactive 06/20/2019 [facility] Azithromycin Notes: (Same As: Zithromax IV) Inactive 06/20/2019 [facility] Ceftriaxone Notes: (Same As: iSmran ocephin). Use with 100 mL NS and infuse over 30 min MEDICATION WASTE Product Size: 1000 mg Product Wasted: ___ mg Inactive 06/20/2019 [facility] Aspirin Notes: Take with food. Inactive 06/20/2019 [facility] Prinivil Notes: (Same as: Prin ivil, Zestril) Inactive 09/19/2015 [facility] hydrochlorothiazide 25 mg oral tablet Notes: (Same as: Hydrodiuril) With food. Inactive 09/19/2015 [facility] Topamax 30 mg, Route: PO, Stan y, Dosing Weight 90.909, kg, Start date: 09/19/15 9:00:00 CDT, Duration: 30 day, Stop date: 10/18/15 9:00:00 CDT Inactive 09/19/2015 [facility] Zoloft Notes: (Same as: Zolof t) Inactive 09/19/2015 [facility] lamotrigine Notes: (Same as:La MICtal) Inactive 09/19/2015 [facility] Hydrochlorothiazide 25 MG / Lisinopril 2 0 MG Oral Tablet 1 tab, Route: PO, Drug Form: TAB, Dosing Weight 90.909, kg, Daily, Start date: 09/19/15 9:00:00 CDT, Duration: 30 day, Stop date: 10/18/15 9:00:00 CDT No Longer Active 09/19/2015 [facility] Abilify 2 mg, Route: PO, Daily , Dosing Weight 90.909, kg, Start date: 09/19/15 9:00:00 CDT, Duration: 30 day, Stop date: 10/18/15 9:00:00 CDT Inactive 09/19/2015 [facility] Thyroxine Notes: Take 1 hour b efore or 2 hours after meal; Enteral feeds may interefere with the absorption of this medication.(Same as:Levothroid, Synthroid) Inactive 09/19/2015 [facility] KlonoPIN Notes: (Same As: Klon oPIN) No Longer Active 09/19/2015 [facility] Clonazepam 6 mg, Route: PO, Be dtime, Dosing Weight 90.909, kg, Start date: 09/18/15 21:00:00 CDT, Duration: 30 day, Stop date: 10/17/15 21:00:00 CDT Inactive 09/19/2015 [facility] atorvastatin Notes: (Same As: Lipitor) No Longer Active 09/19/2015 [facility] Alprazolam 1 MG Oral Tablet [Xanax] 0.5 tab- 1 tab, PO, TID, PRN Anxiety Active 09/18/2015 [facility] Flexeril 15 mg, PO, TID, 0 Ref ill(s) Active 09/18/2015 [facility] Clonazepam 2 MG Oral Tablet [Klonopin] 2 mg = 1 tab, PO, Bedtime, 0 Refill(s) Active 09/18/2015 [facility] Flexeril Notes: (Same As: Flex eril) No Longer Active 09/18/2015 [facility] RN-Bring pt's own Abilify & Topamax sp rinkles for labeling RN-Bring pt's own Abilify & Topamax sp rinkles for labeling, Attn:RN, Drug form: MISC, Route: MISC, QSHIFT, 09/18/15 13:00:00 CDT, Duration: 30 day, Stop date: 10/18/15 8:00:00 CDT No Longer Active 09/18/2015 [facility] Flexeril 15 mg, Route: PO, Alex g form: TAB, TID, Dosing Weight 90.909, kg, Start date: 09/18/15 13:00:00 CDT, Duration: 30 day, Stop date: 10/18/15 9:00:00 CDT Inactive 09/18/2015 [facility] Alprazolam 2 mg, Route: PO, TI D, Dosing Weight 90.909, kg, Start date: 09/18/15 13:00:00 CDT, Duration: 30 day, Stop date: 10/18/15 9:00:00 CDT Inactive 09/18/2015 [facility] Xanax Notes: With food or milk (Same as: Xanax) No Longer Active 09/18/2015 [facility] Xanax Notes: With food or milk (Same as: Xanax) No Longer Active 09/18/2015 [facility] NS 1,000 mL 1,000 mL, Rate: 10 0 ml/hr, Infuse over: 10 hr, Route: IV, Dosing Weight 90.909 kg, Total Volume: 1,000, Start date: 09/18/15 12:27:00 CDT, Duration: 30 day, Stop date: 10/18/15 12:26:00 CDT No Longer Active 09/18/2015 [facility] APAP/butalbital/caffeine Notes : (gxinbjazmdpww-ppiotbapdl-vjyjqofv 325-50-40mg) Do not exceed 4 gm/day of acetaminophen. (Same as: Esgic, Fioricet) No Longer Active 09/18/2015 [facility] Acetaminophen 325 MG / Hydrocodone Elver trate 10 MG Oral Tablet [[place] 10/325] Notes: Do not exceed 4gm/day of acetamin ophen. (Same as: [place] 325/10) No Longer Active 09/18/2015 [facility] Acetaminophen 325 MG / Hydrocodone Elver trate 5 MG Oral Tablet [[place] 5/325] Notes: (Same as: [place] 325/5) Do not ex ceed 4gm/day of acetaminophen. No Longer Activ e 09/18/2015 [facility] Zofran Notes: (Same as: Zofran ) MEDICATION WASTE Product Size: 4 mg Product Wasted: ___ mg No Longer Active 09/18/2015 [facility] Hydralazine Notes: (Same as: A presoline) Push over 5 minutes No Longer Active 09/18/2015 [facility] Metformin Notes: (Same as: Glu cophage) Take with meal No Longer Active 09/18/2015 [facility] Aspirin Notes: Do not crush or chew. (Same As: Ecotrin) No Longer Active 09/18/2015 [facility] methylPREDNISolone SODium SUCCinate Notes: (Same as:Solu-MEDROL, A-Methapred) Inactive 09/18/2015 [facility] ketOROLAC 30 mg/mL injectable solution 4 days MEDICATION WASTE Product Size: 30 mg Product Wasted: ___ mg No Longer Active 09/18/2015 [facility] Clonazepam 6 mg, PO, Bedtime, 0 Refill(s) No Longer Active 09/18/2015 [facility] Hydrochlorothiazide 25 MG / Lisinopril 2 0 MG Oral Tablet 1 tab, PO, Daily, 0 Refill(s) Active 09/18/2015 [facility] Tegretol 600 mg, PO, Bedtime, 0 Refill(s) Active 09/18/2015 [facility] Aspirin 81 mg, PO, Daily, 0 Re fill(s) Active 09/18/2015 [facility] Xanax 2 mg, PO, TID, 0 Refill( s) No Longer Active 09/18/2015 [facility] Abilify 2 mg, PO, Daily, 0 Ref ill(s) Active 09/18/2015 [facility] atorvastatin 20 mg, PO, Bedtim e, 0 Refill(s) Active 09/18/2015 [facility] Metformin 500 mg, PO, Daily, 0 Refill(s) Active 09/18/2015 [facility] lamotrigine 100 mg, PO, Daily, 0 Refill(s) Active 09/18/2015 [facility] Thyroxine 50 microgram, PO, Q6 30AM, 0 Refill(s) Active 09/18/2015 [facility] Zoloft 150 mg, PO, Daily, 0 Re fill(s) Active 09/18/2015 [facility] Topamax 30 mg, PO, Daily, 0 Re fill(s) Active 09/18/2015 [facility] Cyclobenzaprine hydrochloride 5 MG Oral Tablet [Flexeril] 15 mg = 3 tab, PO, TID, 0 Refill(s) No Longer Active 09/18/2015 [facility] Hydrocodone Bitartrate 7.5 MG / Ibuprofe n 200 MG Oral Tablet [Vicoprofen] 3 tab, PO, TID, 0 Refill(s) Active 09/18/2015 [facility] Ativan Notes: (Same as: Ativan) Inactive 09/18/2015 [facility] codeine sulfate 30 mg, 1 tab, Route: PO, Drug form: TAB, Q4H, PRN Headache 1-5, Start date: 09/17/15 22:00:00 CDT, Duration: 30 day, Stop date: 10/17/15 21:59:00 CDT No Longer Active 09/18/2015 [facility] APAP/butalbital/caffeine Notes : (whnemvyxsoaoh-ygvpflfrzc-exlyxlxh 325-50-40mg) Do not exceed 4 gm/day of acetaminophen. (Same as: Esgic, Fioricet) No Longer Active 09/18/2015 [facility] Acetaminophen 325 MG / butalbital 50 MG / Caffeine 40 MG / Codeine Phosphate 30 MG Oral Capsule 1 cap, Route: PO, Dosing Weight 90.909, kg, Q4H, PRN Headache 1-5, Start date: 09/17/15 21:09:00 CDT, Duration: 30 day, Stop date: 10/17/15 21:08:00 CDT Inactive 09/18/2015 [facility] Saline Flush 0.9% Notes: (Same as: BD Posiflush) No Longer Active 09/18/2015 [facility] Ativan Notes: (Same as: Ativan) Inactive 09/18/2015 [facility] Alprazolam 1 MG Oral Tablet 1 mg = 1 tab, PO, QNoon, 0 Refill(s) Inactive 09/18/2015 [facility] amphetamine-dextroamphetamine 20 mg oral tablet 40 mg = 2 tab, PO, QNoon, 0 Refill(s) Inactive 09/18/2015 [facility] Saline Flush 0.9% Notes: (Same as: BD Posiflush) No Longer Active 09/18/2015 [facility] Phenergan 12.5 mg, Route: IVPB , ONCE, Dosing Weight 90.909, kg, PRN Nausea & Vomiting, Start date: 09/17/15 18:14:00 CDT, Stop date: 10/17/15 18:13:00 CDT Inactiv e 09/17/2015 [facility] Morphine 2 mg, Route: IVP, Alex g form: INJ, ONCE, Dosing Weight 90.909, kg, Priority: STAT, Start date: 09/17/15 17:41:00 CDT, Stop date: 09/17/15 17:41:00 CDT Inactiv e 09/17/2015 [facility] Ativan 2 mg, Route: IVP, Drug form: INJ, ONCE, Dosing Weight 111.364, kg, Priority: STAT, Start date: 03/01/15 0:44:00, Stop date: 03/01/15 0:44:00 Inactive 03/01/2015 [facility] Sodium Chloride 0.154 MEQ/ML Injectable Solution 1,000 mL, 1,000 ml/hr, Infuse Over: 1 hr, Route: IV, 1,000, Drug form: INJ, ONCE, Priority: STAT, Dosing Weight 111.364 kg, Start date: 03/01/15 0:25:00, Duration: 1 doses or times, Stop date: 03/01/15 0:25:00 Inactive 03/01/2015 [facility] Saline Flush 0.9% Notes: (Same as: BD Posiflush) Inactive 03/01/2015 [facility] Adderall 20 mg, Route: PO, Alex g form: TAB, QNoon, Dosing Weight 95.7, kg, Start date: 04/17/14 12:00:00, Duration: 30 day, Stop date: 05/16/14 12:00:00 No Longer Active 04/17/2014 [facility] Adderall C-II - Controlled Med PT's Own Med Adderall C-II - Controlled Med PT's Own Med, 20 mg, Drug form: MISC, Route: PO, QNoon, 04/17/14 12:00:00, Duration: 30 day, Stop date: 05/16/14 12:00:00 No Longer Active 04/17/2014 [facility] Clonazepam Notes: (Same As: Severo onoPIN) No Longer Active 04/17/2014 [facility] tiotropium 0.018 MG/ACTUAT Inhalant Powder [Spiriva] Notes: (Same As: Spiriva). No Longer Active 04/17/2014 [facility] Folic Acid 0.4 mg, 1 tab, Rout e: PO, Drug form: TAB, Daily, Dosing Weight 95.7, kg, Start date: 04/17/14 9:00:00, Duration: 30 day, Stop date: 05/16/14 9:00:00 No Longer Active 04/17/2014 [facility] clopidogrel Notes: (Same As: Marcio lavix) No Longer Active 04/17/2014 [facility] Tegretol 600 mg, Route: PO, Dr ug form: TAB, Bedtime, Dosing Weight 95.7, kg, Start date: 04/16/14 21:00:00, Duration: 30 day, Stop date: 05/15/14 21:00:00 Inactive 04/17/2014 [facility] Albuterol 0.09 MG/ACTUAT Metered Dose In haler [Ventolin] Notes: Albuterol 90 microgram/inh 8gm HF A Same as: Ventolin Proventil Inactive 04/16/2014 [facility] Bogue Carbonate Notes: Give with food. (Same as: [place]ogue Carbonate) Inactive 04/16/2014 [facility] Acetaminophen 325 MG / Hydrocodone Elver trate 5 MG Oral Tablet [[place] 5/325] 1-2 tab, PO, Q4H, Pain, # 50 tab, 0 Refi ll(s), given to patient Active 04/16/2014 [facility] NURSE: Plese bring PT's own med to Pharm acy to be verified NURSE: Plese bring PT's own med to Pharm acy to be verified, `, Drug form: MISC, Route: MISC, RBID, 04/16/14 16:12:00, Duration: 30 day, Stop date: 05/16/14 8:00:00 Inactive 04/16/2014 [facility] Sumatriptan 50 MG Oral Tablet [Imitrex] Notes: (Same As: Imitrex) Inactive 04/16/2014 [facility] Carbamazepine Notes: With food . (Same As: Tegretol) No Longer Active 04/14/2014 [facility] gabapentin 100 MG Oral Capsule [Neurontin] Notes: (Same as: Neurontin) No Longer Activ e 04/14/2014 [facility] Carbamazepine Notes: Do not cr ush or chew. (Same As: Tegretol XR) No Longer Active 04/14/2014 [facility] lithium carbonate Notes: Give with food. (Same as: [place] Carbonate) No Longer Active 04/14/2014 [facility] Ceftriaxone Notes: (Same As: R ocephin). Use with 100ml NS mini-bag PLUS and infuse over 30 min No Longer Active 04/14/2014 [facility] Trazodone Hydrochloride 50 MG Oral Tablet Notes: (Same As: Desyrel) No Longer Active 04/14/2014 [facility] Phenergan Notes: Do not give I V push. (Same as: Phenergan) No Longer Active 04/14/2014 [facility] Alprazolam 0.5 MG Oral Tablet [Xanax] Notes: With food or milk (Same as: Xanax) No Longer Active 04/14/2014 [facility] gabapentin 100 MG Oral Capsule [Neurontin] Notes: (Same as: Neurontin) No Longer Activ e 04/13/2014 [facility] Klonopin Notes: (Same As: Klon oPIN) No Longer Active 04/13/2014 [facility] lithium carbonate Notes: Give with food. (Same as: [place] Carbonate) Inactive 04/13/2014 [facility] Geodon Notes: (Same As: Geodon) No Longer Active 04/13/2014 [facility] atorvastatin Notes: (Same As: Lipitor) No Longer Active 04/13/2014 [facility] tiotropium Notes: (Same As: Sp iriva). No Longer Active 04/12/2014 [facility] Phenergan Notes: Do not give I V push. (Same as: Phenergan) Inactive 04/12/2014 [facility] Albuterol 0.833 MG/ML / Ipratropium Brom asya 0.167 MG/ML Inhalant Solution [DuoNeb] Notes: (Same as: Duoneb) No Longer Active 04/11/2014 [facility] Klonopin Notes: (Same As: Klon oPIN) No Longer Active 04/11/2014 [facility] Influenza Virus Vaccine, Inactivated A-B [id number] (H3N2)-like virus ([id number] [facility] [place] [facility] [place] X-175C) strain / Influenza Virus Vaccine, Inactivated T-[id number]-54-2007, IVR-148 (H1N1) strain / Influenza Virus Vaccine, Inactivated, G-Jdhjmmc-[id number]-lik Notes: (Same as: Fluzone Quadrivalent) No Longe r Active 04/10/2014 [facility] Lovenox Notes: (Same as: Loven ox) No Longer Active 04/10/2014 [facility] Klonopin Notes: (Same As: Klon oPIN) No Longer Active 04/10/2014 [facility] lithium carbonate Notes: Give with food. (Same as: [place]ogue Carbonate) No Longer Active 04/10/2014 [facility] Plavix Notes: (Same As: Plavix) No Longer Active 04/10/2014 [facility] Geodon Notes: (Same As: Geodon) No Longer Active 04/10/2014 [facility] Carbamazepine Notes: Do not cr ush or chew. (Same As: Tegretol XR) No Longer Active 04/10/2014 [facility] Aspirin 81 MG Enteric Coated Tablet Notes: Do not crush or chew. (Same As: Ecotrin) No Longer Active 04/10/2014 [facility] Alprazolam 0.5 MG Oral Tablet [Xanax] Notes: With food or milk (Same as: Xanax) No Longer Active 04/10/2014 [facility] Docusate Sodium 100 MG Oral Capsule Notes: (Same as: Colace) (Do Not Crush) No Longer Active 04/09/2014 [facility] Ofirmev or = 50 kg, Start torey e: 04/09/14 14:49:00 Inactive 04/09/2014 [facility] Enoxaparin 40 mg, Route: SUB-Q , Drug form: INJ, Q24H, Dosing Weight 88.864, kg, Start date: 04/09/14 14:00:00, Duration: 30 day, Stop date: 05/08/14 14:00:00 Inactive 04/09/2014 [facility] Naloxone 0.04 mg, Route: IVP, Q2MIN, Dosing Weight 90.909, kg, PRN Narcotic Reversal, Start date: 04/09/14 13:43:00, Duration: 8 doses or times, Stop date: Limited # of times Inactive 04/09/2014 [facility] Ondansetron 4 mg, Route: IVP, ONCE, Dosing Weight 90.909, kg, PRN Nausea & Vomiting, Start date: 04/09/14 13:43:00 Inactive 04/09/2014 [facility] Flumazenil 0.2 mg, Route: IVP, PRN, Dosing Weight 90.909, kg, PRN Benzodiazepine Reversal, Initial dose, Start date: 04/09/14 13:43:00, Duration: 30 day, Stop date: 05/09/14 13:42:00 Inactive 04/09/2014 [facility] Fentanyl 25 microgram, Route: IVP, Q5Min, Dosing Weight 90.909, kg, PRN Pain Score 4-6, Start date: 04/09/14 13:43:00, Duration: 4 doses or times, Stop date: Limited # of times Inactive 04/09/2014 [facility] Morphine 2 mg, Route: IVP, Q5M in, Dosing Weight 90.909, kg, PRN Pain Score 4-6, Start date: 04/09/14 13:43:00, Duration: 5 doses or times, Stop date: Limited # of times Inactive 04/09/2014 [facility] Saline Flush 0.9% Notes: (Same as: BD Posiflush) No Longer Active 04/09/2014 [facility] Sodium Chloride 0.154 MEQ/ML Injectable Solution 1,000 mL, Rate: 100 ml/hr, Infuse over: 10 hr, Route: IV, Dosing Weight 90.909 kg, Total Volume: 1,000, Start date: 04/09/14 13:43:00, Duration: 30 day, Stop date: 05/09/14 13:42:00 No Longer Active 04/09/2014 [facility] Hydralazine Notes: (Same as: A presoline) Push over 5 minutes No Longer Active 04/09/2014 [facility] Acetaminophen Notes: Do not ex ceed 4 gm/day. (Same as: Tylenol) No Longer Active 04/09/2014 [facility] Acetaminophen 325 MG / Hydrocodone Elver trate 5 MG Oral Tablet Notes: (Same as: [place] 325/5) Do not ex ceed 4gm/day of acetaminophen. No Longer Active 04/09/2014 [facility] Hydromorphone 0.3 mg, 0.3 mL, Route: IVP, Drug form: INJ, Q3H, Dosing Weight 90.909, kg, PRN Pain Score 4-6, Start date: 04/09/14 13:43:00, Duration: 30 day, Stop date: 05/09/14 13:42:00 No Longer Active 04/09/2014 [facility] Calcium Chloride 0.0014 MEQ/ML / Potassi um Chloride 0.004 MEQ/ML / Sodium Chloride 0.103 MEQ/ML / Sodium Lactate 0.028 MEQ/ML Injectable Solution 1,000 mL, Rate: 25 ml/hr, Infuse over: 4 0 hr, Route: IV, Dosing Weight 90.909 kg, Total Volume: 1,000, Start date: 04/09/14 11:35:00, Duration: 30 day, Stop date: 05/09/14 11:34:00 Inactive 04/09/2014 [facility] Albuterol 0.09 MG/ACTUAT Metered Dose In haler [Ventolin] 2 puff, INHALATION, QID, 0 Refill(s) Active 04/02/2014 [facility] Fluoxetine See Instructions, 0 Refill(s) Active 04/02/2014 [facility] lithium 600 mg oral capsule 60 0 mg = 1 cap, PO, TID, 0 Refill(s) Active 04/02/2014 [facility] tiotropium 0.018 MG/ACTUAT Inhalant Powder [Spiriva] 18 microgram = 1 ea, INHALATION, Daily, 0 Refill(s) Active 04/02/2014 [facility] Clindamycin Notes: (Same As: Mala caal) No Longer Active 04/02/2014 [facility] Brett Notes: (polyethylene glycol electrolyte solution 4 Liter bottle) (Same as: Klaus Hernandez) Inactive 02/04/2014 [facility] naproxen 500 mg oral tablet 50 0 mg = 1 tab, PO, Q12H, Headache 1-3, # 30 tab, 0 Refill(s) Active 02/04/2014 [facility] atorvastatin 10 mg oral tablet 20 mg = 2 tab, PO, Bedtime, # 30 tab, 0 Refill(s) Active 02/04/2014 [facility] clopidogrel 75 mg oral tablet 75 mg = 1 tab, PO, Daily, # 30 tab, 0 Refill(s) Active 02/04/2014 [facility] Aspirin 81 MG Enteric Coated Tablet 81 mg = 1 tab, PO, Daily, # 30 tab, 0 Refill(s) Active 02/04/2014 [facility] Golytely Notes: (polyethylene glycol electrolyte solution 4 Liter bottle) (Same as: Golytely, Colyte) Inactive 02/04/2014 [facility] Depacon 500 mg, 5 mL, Route: I VPB, Drug form: INJ, ONCE, Dosing Weight 88.864, kg, Start date: 02/04/14 10:23:00, Stop date: 02/04/14 10:23:00 Inactive 02/04/2014 [facility] Depacon Notes: Dilute in at le ast 50ml D5W or NS. Infusion rate = 20 mg/min (Same As: Depacon) Inactive 02/03/2014 [facility] ziprasidone Notes: (Same As: G eodon) No Longer Active 02/03/2014 [facility] Trazodone Hydrochloride 100 MG Oral Tablet Notes: (Same As: Desyrel) No Longer Active 02/03/2014 [facility] [place]ogue Carbonate Notes: Do no t crush or chew. No Longer Active 02/03/2014 [facility] Clonazepam Notes: (Same As: Kl onoPIN) No Longer Active 02/03/2014 [facility] Ambien Notes: (Same As: Ambien) No Longer Active 02/03/2014 [facility] Lactulose 667 MG/ML Oral Solution Notes: (Same as:Chronulac) No Longer Active 02/02/2014 [facility] Lipitor Notes: (Same As: Lipit or) No Longer Active 02/02/2014 [facility] Depacon Notes: Dilute in at le ast 50ml D5W or NS. Infusion rate = 20 mg/min (Same As: Depacon) Inactive 02/02/2014 [facility] Solu-Medrol Notes: (Same as:So junito-MEDROL, A-Methapred) Inactive 02/02/2014 [facility] Naproxen Notes: (Same as: Napr osyn) Take with food. No Longer Active 02/02/2014 [facility] Depacon Notes: Dilute in at le ast 50ml D5W or NS. Infusion rate = 20 mg/min (Same As: Depacon) Inactive 02/01/2014 [facility] Naproxen Notes: (Same as: Napr osyn) Take with food. Inactive 02/01/2014 [facility] Aspirin 81 MG Enteric Coated Tablet Notes: Do not crush or chew. (Same As: Ecotrin) No Longer Active 02/01/2014 [facility] Tegretol Notes: With food. ([facility] As: Tegretol) No Longer Active 02/01/2014 [facility] Plavix Notes: (Same As: Plavix) No Longer Active 01/31/2014 [facility] Tegretol Notes: With food. ([facility] As: Tegretol) No Longer Active 01/31/2014 [facility] Adderall 20 mg, Route: PO, Alex g form: TAB, QNoon, Dosing Weight 95.455, kg, Start date: 01/31/14 12:00:00, Duration: 30 day, Stop date: 03/01/14 12:00:00 Inactive 01/31/2014 [facility] Patient's own med: Adderall Benjamin cordobant's own med: Adderall, 20 mg, Drug form: MISC, Route: PO, QPM, 01/31/14 12:00:00, Stop date: 03/01/14 12:00:00 No Longer Active 01/31/2014 [facility] Ketorolac 4 days No Longer Active 01/31/2014 [facility] Adderall 40 mg, Route: PO, Alex g form: TAB, QAM, Dosing Weight 95.455, kg, Start date: 01/31/14 9:00:00, Duration: 30 day, Stop date: 03/01/14 9:00:00 Inactive 01/31/2014 [facility] Saline Flush 0.9% Notes: Same as: BD Posiflush Sterile No Longer Active 01/31/2014 [facility] pantoprazole Notes: Tablet clover uld not be chewed or crushed. (Same as: Protonix) N o Longer Active 01/31/2014 [facility] Patient's own med: Adderall Benjamin cordobant's own med: Adderall, 40 mg, Drug form: MISC, Route: PO, QAM, 01/31/14 9:00:00, Stop date: 03/01/14 6:00:00 No Longer Active 01/31/2014 [facility] Folic Acid 0.4 mg, 1 tab, Rout e: PO, Drug form: TAB, Daily, Dosing Weight 95.455, kg, Start date: 01/31/14 9:00:00, Duration: 30 day, Stop date: 03/01/14 9:00:00 N o Longer Active 01/31/2014 [facility] Clonazepam Notes: (Same As: Severo onoPIN) No Longer Active 01/31/2014 [facility] Patient'w own med: Frova Patie nt'w own med: Frova, 2.5 mg, Drug form: MISC, Route: PO, PRN, PRN Headache, 01/31/14 0:32:00, Duration: 30 day, Stop date: 03/02/14 0:31:00 No Longer Active 01/31/2014 [facility] [place] Carbonate Notes: Do no t crush or chew. (Same as: Eskalith-CR) No Longer Active 01/31/2014 [facility] Clonazepam Notes: (Same As: Severo onoPIN) No Longer Active 01/31/2014 [facility] ziprasidone Notes: (Same As: Areli eodon) No Longer Active 01/31/2014 [facility] Trazodone Hydrochloride 100 MG Oral Tablet Notes: (Same As: Desyrel) No Longer Active 01/31/2014 [facility] Aspirin 325 MG Enteric Coated Tablet Notes: (Do Not Crush) Do not crush or chew. Inactive 01/31/2014 [facility] Saline Flush 0.9% Notes: Same as: BD Posiflush Sterile No Longer Active 01/31/2014 [facility] Acetaminophen Notes: Do not ex ceed 4 gm/day. (Same as: Tylenol) No Longer Active 01/31/2014 [facility] Labetalol Notes: (Same as: Magen lópez Trandate) Push over 2 minutes Give bolus over 2-3 minutes. No Longer Active 01/31/2014 [facility] Atropine 0.5 mg, 5 mL, Route: IVP, Drug form: INJ, ONCALL, Dosing Weight 95.455, kg, PRN Bradycardia, Start date: 01/30/14 23:36:00, Duration: 30 day, Stop date: 03/01/14 23:35:00, symptomatic bradycardia with a rate <40/minute No Longer Active 01/31/2014 [facility] Nitroglycerin 0.4 MG Sublingual Tablet Notes: (Same as:Nitroquick, Nitrostat) "Do Not Crush" Sublingual tablet No Longer Active 01/31/2014 [facility] Albuterol 0.833 MG/ML / Ipratropium Brom asya 0.167 MG/ML Inhalant Solution [DuoNeb] Notes: (Same as: Duoneb) No Longer Active 01/31/2014 [facility] Nicotine Notes: (Same as: Rito claire) "Remove old patch before application of new patch" No Longer Active 01/31/2014 [facility] Frova 2.5 mg, Route: PO, Drug form: TAB, PRN, Dosing Weight 95.455, kg, PRN, Start date: 01/30/14 23:14:00, Duration: 30 day, Stop date: 03/01/14 23:13:00, migraine No Longer Active 01/31/2014 [facility] Albuterol 0.09 MG/ACTUAT Inhalant Solution Notes: Albuterol 90 microgram/inh 8gm HFA Same as: Ventolin, Proventil No Longer Active 01/31/2014 [facility] Alprazolam Notes: With food or milk (Same as: Xanax) No Longer Active 01/31/2014 [facility] frovatriptan 2.5 MG Oral Tablet [Frova] 2.5 mg = 1 tab, PO, PRN, migraines, # 9 tab, 0 Refill(s) Active 01/31/2014 [facility] folic acid 0.4 mg oral tablet 0.4 mg = 1 tab, PO, Daily, # 100 tab, 0 Refill(s) Active 01/31/2014 [facility] Albuterol 0.09 MG/ACTUAT Inhalant Solution 1 puff, INHALATION, QID, wheezing, # 1 ea, 0 Refill(s) Active 01/31/2014 [facility] Trazodone Hydrochloride 100 MG Oral Tablet 400 mg = 4 tab, PO, Bedtime, # 90 tab, 0 Refill(s) Active 01/31/2014 [facility] clonazePAM 2 mg oral tablet 4 mg = 2 tab, PO, Bedtime, 0 Refill(s) Active 01/31/2014 [facility] ziprasidone 80 mg oral capsule 160 mg = 2 cap, PO, Bedtime, # 180 cap, 0 Refill(s) Active 01/31/2014 [facility] ALPRAZOLam 1 mg oral tablet, disintegrating 1 mg = 1 tab, PO, TID, for anxiety, 0 Refill(s) Active 01/31/2014 [facility] Amphetamine aspartate 5 MG / Amphetamine Sulfate 5 MG / Dextroamphetamine saccharate 5 MG / Dextroamphetamine Sulfate 5 MG Oral Tablet [Adderall] 20 mg = 1 tab, PO, QNoon, 0 Refill(s) Active 01/31/2014 [facility] Amphetamine aspartate 5 MG / Amphetamine Sulfate 5 MG / Dextroamphetamine saccharate 5 MG / Dextroamphetamine Sulfate 5 MG Oral Tablet [Adderall] 40 mg = 2 tab, PO, QAM, 0 Refill(s) Active 01/31/2014 [facility] lithium 300 mg oral tablet 900 mg = 3 tab, PO, Bedtime, # 90 tab, 0 Refill(s) Active 01/31/2014 [facility] Carbamazepine 200 MG Oral Tablet [Tegretol] 600 mg = 3 tab, PO, Bedtime, # 120 tab, 0 Refill(s) Active 01/31/2014 [facility] Carbamazepine 200 MG Oral Tablet [Tegretol] 400 mg = 2 tab, PO, QNoon, # 120 tab, 0 Refill(s) Active 01/31/2014 [facility] Dilaudid 0.5 mg, Route: IVP, O NCE, Dosing Weight 95.455, kg, Priority: STAT, Start date: 01/30/14 21:08:00, Stop date: 01/30/14 21:08:00 Inactive 01/31/2014 [facility] Dilaudid 0.5 mg, Route: IVP, O NCE, Dosing Weight 95.455, kg, Priority: STAT, Start date: 01/30/14 20:31:00, Stop date: 01/30/14 20:31:00 Inactive 01/31/2014 [facility] Saline Flush 0.9% Notes: Same as: BD Posiflush Sterile Inactive 01/31/2014 [facility] Allergies, Adverse Reactions, Alerts Substance Category Reaction Severity Reaction type Status Date Reported Comments Source penicillins Assertion Drug allergy Active [facility] Immunizations No Data Provided for This Section Results Order Name Results Value Reference Range Date Interpretation Comments Source CARDIAC ENZYMES Troponin-I <0.02 0.00 - 0.40 06/21/2019 [facility] CARDIAC ENZYMES Troponin-I <0.02 0.00 - 0.40 06/21/2019 [facility] CHEM PANEL Lactic Acid Lvl 1.8 0.5 - 2.2 06/21/2019 [facility] CARDIAC ENZYMES Troponin-I <0.02 0.00 - 0.40 06/20/2019 [facility] CHEM PANEL Glucose Lvl 126 70 - 99 06/20/2019 [facility] CHEM PANEL BUN 17 7 - 22 06/20/2019 [facility] CHEM PANEL Creatinine Lvl 0.96 0.50 - 1.40 06/20/2019 [facility] CHEM PANEL Sodium Lvl 140 135 - 145 06/20/2019 [facility] CHEM PANEL Potassium Lvl 3.8 3.5 - 5.1 06/20/2019 [facility] CHEM PANEL Chloride Lvl 106 95 - 109 06/20/2019 [facility] CHEM PANEL CO2 27 24 - 32 06/20/2019 [facility] CHEM PANEL Calcium Lvl 9.1 8.5 - 10.5 06/20/2019 [facility] CHEM PANEL AGAP 10.8 10.0 - 20.0 06/20/2019 [facility] CHEM PANEL eGFR 66 06/20/2019 Result Comment: The eGFR is calculated using the [...] from the National Kidney Disease Education Program (NKDEP) which additionally recommends that when the eGFR is used in patients with extremes of body mass index for purposes of drug dosing, the eGFR should be multiplied by the estimated BMI. [facility] HEMATOLOGY WBC 6.0 3.7 - 10.4 06/20/2019 [facility] HEMATOLOGY RBC 5.86 4.20 - 5.40 06/20/2019 [facility] HEMATOLOGY Hgb 11.8 12.0 - 16.0 06/20/2019 [facility] HEMATOLOGY Hct 37.7 36.0 - 48.0 06/20/2019 [facility] HEMATOLOGY MCV 64.4 80.0 - 98.0 06/20/2019 [facility] HEMATOLOGY MCH 20.1 27.0 - 31.0 06/20/[address] [facility] MCHC 31.2 32.0 - 36.0 06/20/[address] [facility] RDW 15.3 11.5 - 14.5 06/20/[address] [facility] Platelet 181 133 - 450 06/20/[address] [facility] MPV 9.0 7.4 - 10.4 06/20/[address] [facility] PT 13.0 12.0 - 14.7 06/20/[address] [facility] INR 0.98 0.85 - 1.17 06/20/[address] [facility] PTT 26.5 22.9 - 35.8 06/20/[address] [facility] RBC Morph See N ote (06/20/19 3:36 PM) Normal 06/20/[address] [facility] Plt Morph Julee l (06/20/19 3:36 PM) Normal 06/20/[address] [facility] Segs 59.3 45.0 - 75.0 06/20/[address] [facility] Lymphocytes 30.4 20.0 - 40.0 06/20/[address] [facility] Monocytes 6.6 2.0 - 12.0 06/20/[address] [facility] Eosinophils 2.9 0.0 - 4.0 06/20/[address] [facility] Basophils 0.8 0.0 - 1.0 06/20/[address] [facility] Neutrophils # 3.5 1.5 - 8.1 06/20/[address] [facility] Lymphocytes # 1.8 1.0 - 5.5 06/20/[address] [facility] Monocytes # 0.4 0.0 - 0.8 06/20/[address] [facility] Eosinophils # 0.2 0.0 - 0.5 06/20/[address] [facility] Microcyte 3+ *NA* (06/20/19 3:36 PM) None Seen 06/20/[address] [facility] Hypochrom 1+ (06/20/19 3:36 PM) None Seen 06/20/2019 [facility] ELECTROLYTES AGAP 12.8 10.0 - 20.0 09/19/2015 [facility] ELECTROLYTES eGFR 75 09/19/2015 Result Comment: The eGFR is calculated using the [...] from the National Kidney Disease Education Program (NKDEP) which additionally recommends that when the eGFR is used in patients with extremes of body mass index for purposes of drug dosing, the eGFR should be multiplied by the estimated BMI. [facility] ELECTROLYTES CO2 27 24 - 32 09/19/2015 [facility] ELECTROLYTES Calcium Lvl 7.9 8.5 - 10.5 09/19/2015 [facility] ELECTROLYTES Creatinine Lvl 0.8 8 0.50 - 1.40 09/19/2015 [facility] ELECTROLYTES Sodium Lvl 139 135 - 145 09/19/2015 [facility] ELECTROLYTES Potassium Lvl 3.8 3.5 - 5.1 09/19/2015 [facility] ELECTROLYTES Chloride Lvl 103 95 - 109 09/19/2015 [facility] ELECTROLYTES BUN 21 7 - 22 09/19/2015 [facility] ELECTROLYTES Glucose Lvl 150 70 - 99 09/19/2015 [facility] HEMATOLOGY Eosinophils 0.5 0.0 - 4.0 09/19/2015 [facility] HEMATOLOGY Lymphocytes # 1.8 1.0 - 5.5 09/19/2015 [facility] HEMATOLOGY Basophils 0.5 0.0 - 1.0 09/19/2015 [facility] HEMATOLOGY Monocytes # 0.3 0.0 - 0.8 09/19/[address] [facility] Segs-Bands # 4.3 1.5 - 8.1 09/19/[address] [facility] Microcyte 3+ *NA* (09/19/15 3:59 AM) None Seen 09/19/2015 [facility] HEMATOLOGY Lymphocytes 27.8 20.0 - 40.0 09/19/2015 [facility] HEMATOLOGY Monocytes 5.1 2.0 - 12.0 09/19/2015 [facility] HEMATOLOGY Segs 66.1 45.0 - 75.0 09/19/2015 [facility] HEMATOLOGY MCH 19.9 27.0 - 31.0 09/19/2015 [facility] HEMATOLOGY Hct 28.7 36.0 - 48.0 09/19/2015 [facility] HEMATOLOGY WBC 6.5 3.7 - 10.4 09/19/2015 [facility] HEMATOLOGY MPV 9.1 7.4 - 10.4 09/19/2015 [facility] HEMATOLOGY Platelet 154 133 - 450 09/19/2015 [facility] HEMATOLOGY RDW 15.4 11.5 - 14.5 09/19/[address] [facility] RBC 4.55 4.20 - 5.40 09/19/2015 [facility] HEMATOLOGY MCV 63.1 80.0 - 98.0 09/19/2015 [facility] HEMATOLOGY Hgb 9.0 12.0 - 16.0 09/19/2015 [facility] HEMATOLOGY MCHC 31.5 32.0 - 36.0 09/19/2015 [facility] TOXICOLOGY Carbamaz Lvl 8.5 4.0 - 12.0 09/19/2015 [facility] TOXICOLOGY Carbamaz Lvl 13.5 4.0 - 12.0 09/18/2015 [facility] LIPIDS VLDL 40 09/18/2015 [facility] LIPIDS HDL 34 >=61 mg/dL 09/18/2015 [facility] LIPIDS LDL (Calculated) 95 <=99 mg/dL 09/18/2015 [facility] LIPIDS Chol 169 <=199 mg/dL 09/18/2015 [facility] LIPIDS Trig 202 <=149 mg/dL 09/18/2015 [facility] LIPIDS CHD Risk 4.97 3.90 - 5.80 09/18/2015 [facility] SPECIAL CHEMISTRY Hgb A1C 7.4 <=5.6 % 09/18/2015 [facility] CARDIAC ENZYMES Total CK 261 12 - 191 09/17/2015 [facility] CARDIAC ENZYMES Troponin-I <0.02 0.00 - 0.40 09/17/2015 [facility] CARDIAC ENZYMES CK MB 1.7 0.5 - 3.6 09/17/2015 [facility] CARDIAC ENZYMES CK MB Index 0.7 0.0 - 2.5 09/17/2015 [facility] CHEM PANEL eGFR 75 09/17/2015 Result Comment: The eGFR is calculated using the [...] from the National Kidney Disease Education Program (NKDEP) which additionally recommends that when the eGFR is used in patients with extremes of body mass index for purposes of drug dosing, the eGFR should be multiplied by the estimated BMI. [facility] CHEM PANEL Potassium Lvl 4.0 3.5 - 5.1 09/17/2015 [facility] CHEM PANEL Glucose Lvl 127 70 - 99 09/17/2015 [facility] CHEM PANEL CO2 28 24 - 32 09/17/2015 [facility] CHEM PANEL Chloride Lvl 101 95 - 109 09/17/2015 [facility] CHEM PANEL ALT 36 0 - 65 09/17/2015 [facility] CHEM PANEL Globulin 3.9 2.0 - 4.0 09/17/2015 [facility] CHEM PANEL AGAP 12.0 10.0 - 20.0 09/17/2015 [facility] CHEM PANEL B/C Ratio 17 6 - 25 09/17/2015 [facility] CHEM PANEL Calcium Lvl 8.7 8.5 - 10.5 09/17/2015 [facility] CHEM PANEL BUN 15 7 - 22 09/17/2015 [facility] CHEM PANEL Creatinine Lvl 0.88 0.50 - 1.40 09/17/2015 [facility] CHEM PANEL Sodium Lvl 137 135 - 145 09/17/2015 [facility] CHEM PANEL Total Protein 7.6 6.4 - 8.4 09/17/2015 [facility] CHEM PANEL Albumin Lvl 3.7 3.5 - 5.0 09/17/2015 [facility] CHEM PANEL A/G Ratio 0.9 0.7 - 1.6 09/17/2015 [facility] CHEM PANEL Bili Total 0.3 0.2 - 1.3 09/17/2015 [facility] CHEM PANEL AST 24 0 - 37 09/17/2015 [facility] CHEM PANEL Alk Phos 54 39 - 136 09/17/2015 [facility] HEMATOLOGY MPV 8.6 7.4 - 10.4 09/17/2015 [facility] HEMATOLOGY MCH 19.6 27.0 - 31.0 09/17/2015 [facility] HEMATOLOGY WBC 4.8 3.7 - 10.4 09/17/2015 [facility] HEMATOLOGY Platelet 174 133 - 450 09/17/2015 [facility] HEMATOLOGY RDW 15.6 11.5 - 14.5 09/17/2015 [facility] HEMATOLOGY Hgb 10.0 12.0 - 16.0 09/17/2015 [facility] HEMATOLOGY RBC 5.12 4.20 - 5.40 09/17/2015 [facility] HEMATOLOGY MCV 63.1 80.0 - 98.0 09/17/2015 [facility] HEMATOLOGY Hct 32.3 36.0 - 48.0 09/17/[address] [facility] MCHC 31.1 32.0 - 36.0 09/17/2015 [facility] HEMATOLOGY Microcyte 3+ *NA* (09/17/15 1:53 PM) None Seen 09/17/2015 [facility] HEMATOLOGY Segs-Bands # 2.8 1.5 - 8.1 09/17/2015 [facility] HEMATOLOGY Monocytes # 0.2 0.0 - 0.8 09/17/2015 [facility] HEMATOLOGY Lymphocytes # 1.5 1.0 - 5.5 09/17/[address] [facility] Monocytes 5.0 2.0 - 12.0 09/17/[address] [facility] Eosinophils 5.1 0.0 - 4.0 09/17/2015 [facility] HEMATOLOGY Basophils 1.1 0.0 - 1.0 09/17/2015 [facility] HEMATOLOGY Eosinophils # 0.2 0.0 - 0.5 09/17/[address] [facility] Basophils # 0.1 0.0 - 0.2 09/17/2015 [facility] HEMATOLOGY Segs 58.5 45.0 - 75.0 09/17/[address] [facility] Lymphocytes 30.3 20.0 - 40.0 09/17/2015 [facility] TOXICOLOGY Carbamaz Lvl 17.7 4.0 - 12.0 09/17/2015 Result Comment: Critical Result(s) siddhartha Scott at 09/17/2015 17:26 by MADDIE. Read back OK. [facility] URINE AND STOOL UA Urobilinogen <=1.0 mg/dL 0.1 - 1.0 09/17/2015 [facility] URINE AND STOOL UA Nitrite Negative (09/17/15 1:24 PM) Negative 09/17/2015 [facility] URINE AND STOOL UA Sq Epi Moderate /LPF Few /LPF 09/17/2015 [facility] URINE AND STOOL UA Leuk Est Small *ABN* (09/17/15 1:24 PM) Negative 09/17/2015 [facility] URINE AND STOOL UA Blood Small *ABN* (09/17/15 1:24 PM) Negative 09/17/2015 [facility] URINE AND STOOL UA RBC 6 0 - 2 09/17/2015 [facility] URINE AND STOOL UA Bacteria Occasional /HPF None Seen /HPF 09/17/2015 [facility] URINE AND STOOL UA WBC 16 0 - 5 09/17/2015 [facility] URINE AND STOOL UA Hyal Cast 3 0 - 2 09/17/2015 [facility] URINE AND STOOL UA Mucus Few /LPF None Seen /LPF 09/17/2015 [facility] URINE AND STOOL UA Protein Negative mg/dL Negative mg/dL 09/17/2015 [facility] URINE AND STOOL UA pH 7.0 5.0 - 8.0 09/17/2015 [facility] URINE AND STOOL UA Turbidity Clear (09/17/15 1:24 PM) Clear 09/17/2015 [facility] URINE AND STOOL UA Color Yellow *NA* (09/17/15 1:24 PM) Yellow 09/17/2015 [facility] URINE AND STOOL UA Bili Negative *NA* (09/17/15 1:24 PM) Negative 09/17/2015 [facility] URINE AND STOOL UA Glucose Negative mg/dL Negative mg/dL 09/17/2015 [facility] URINE AND STOOL UA Spec Grav 1.018 <=1.030 09/17/2015 [facility] URINE AND STOOL UA Ketones Negative mg/dL Negative mg/dL 09/17/2015 [facility] ELECTROLYTES AGAP 13.7 10.0 - 20.0 03/01/2015 [facility] ELECTROLYTES A/G Ratio 1.1 0.7 - 1.6 03/01/2015 [facility] ELECTROLYTES B/C Ratio 12 6 - 25 03/01/2015 [facility] ELECTROLYTES Globulin 3.4 2.0 - 4.0 03/01/2015 [facility] ELECTROLYTES eGFR 84 03/01/2015 Result Comment: The eGFR is calculated using the [...] from the National Kidney Disease Education Program (NKDEP) which additionally recommends that when the eGFR is used in patients with extremes of body mass index for purposes of drug dosing, the eGFR should be multiplied by the estimated BMI. [facility] ELECTROLYTES Alk Phos 43 39 - 136 03/01/2015 [facility] ELECTROLYTES Bili Total 0.5 0.2 - 1.3 03/01/2015 [facility] ELECTROLYTES AST 34 0 - 37 03/01/2015 [facility] ELECTROLYTES Albumin Lvl 3.7 3.5 - 5.0 03/01/2015 [facility] ELECTROLYTES ALT 39 0 - 65 03/01/2015 [facility] ELECTROLYTES Total Protein 7.1 6.4 - 8.4 03/01/2015 [facility] ELECTROLYTES Calcium Lvl 8.4 8.5 - 10.5 03/01/2015 [facility] ELECTROLYTES CO2 21 24 - 32 03/01/2015 [facility] ELECTROLYTES Potassium Lvl 3.7 3.5 - 5.1 03/01/2015 [facility] ELECTROLYTES Chloride Lvl 110 95 - 109 03/01/2015 [facility] ELECTROLYTES Sodium Lvl 141 135 - 145 03/01/2015 [facility] ELECTROLYTES Creatinine Lvl 0.8 0.5 - 1.4 03/01/2015 [facility] ELECTROLYTES BUN 10 7 - 22 03/01/2015 [facility] ELECTROLYTES Glucose Lvl 118 70 - 99 03/01/2015 [facility] HEMATOLOGY PTT 23.7 22.9 - 35.8 03/01/2015 [facility] HEMATOLOGY MPV 9.0 7.4 - 10.4 03/01/2015 [facility] HEMATOLOGY Platelet 183 133 - 450 03/01/2015 [facility] HEMATOLOGY MCHC 30.3 32.0 - 36.0 03/01/2015 [facility] HEMATOLOGY MCH 19.9 27.0 - 31.0 03/01/2015 [facility] HEMATOLOGY MCV 65.6 80.0 - 98.0 03/01/2015 [facility] HEMATOLOGY Hct 32.5 36.0 - 48.0 03/01/[address] [facility] Hgb 9.8 12.0 - 16.0 03/01/2015 [facility] HEMATOLOGY RBC 4.95 4.20 - 5.40 03/01/2015 [facility] HEMATOLOGY RDW 15.6 11.5 - 14.5 03/01/2015 [facility] HEMATOLOGY WBC 5.3 3.7 - 10.4 03/01/2015 [facility] HEMATOLOGY INR 1.14 0.85 - 1.17 03/01/2015 [facility] HEMATOLOGY PT 14.9 12.0 - 14.7 03/01/2015 [facility] HEMATOLOGY Eosinophils # 0.1 0.0 - 0.5 03/01/2015 [facility] HEMATOLOGY Lymphocytes # 1.5 1.0 - 5.5 03/01/2015 [facility] HEMATOLOGY Monocytes # 0.3 0.0 - 0.8 03/01/2015 [facility] HEMATOLOGY Segs-Bands # 3.4 1.5 - 8.1 03/01/2015 [facility] HEMATOLOGY Basophils 0.9 0.0 - 1.0 03/01/2015 [facility] HEMATOLOGY Monocytes 6.5 2.0 - 12.0 03/01/2015 [facility] HEMATOLOGY Eosinophils 1.7 0.0 - 4.0 03/01/[address] [facility] Lymphocytes 27.2 20.0 - 40.0 03/01/2015 [facility] HEMATOLOGY Plt Morph Julee l (03/01/15 5:00 AM) 03/01/2015 [facility] HEMATOLOGY Segs 63.7 45.0 - 75.0 03/01/[address] [facility] RBC Morph See N ote (03/01/15 5:00 AM) 03/01/[address] [facility] Schistocyte 1-3 p er HPF (03/01/15 5:00 AM) None Seen 03/01/[address] [facility] Hypochrom 1+ (03/01/15 5:00 AM) None Seen 03/01/2015 [facility] HEMATOLOGY Microcyte 1+ *ABN* (03/01/15 5:00 AM) None Seen 03/01/2015 [facility] METAL [place]ogue Lvl <0.20 0.50 - 1.50 03/01/2015 [facility] TOXICOLOGY Ethanol Lvl 47 03/01/2015 [facility] TOXICOLOGY Etoh (%) 0.047 03/01/2015 [facility] TOXICOLOGY Acetaminoph Lvl <2 (03/01/15 5:00 AM) 10 - 20 03/01/2015 [facility] URINE AND STOOL UA Color Ltyellow 03/01/2015 [facility] URINE AND STOOL UA Urobilinogen <=1.0 mg/dL 0.1 - 1.0 03/01/2015 [facility] URINE AND STOOL UA RBC <1 0 - 2 03/01/2015 [facility] URINE AND STOOL UA Turbidity Clear (03/01/15 3:00 AM) Clear 03/01/2015 [facility] URINE AND STOOL UA Bili Negative *NA* (03/01/15 3:00 AM) Negative 03/01/2015 [facility] URINE AND STOOL UA Blood Small *ABN* (03/01/15 3:00 AM) Negative 03/01/2015 [facility] URINE AND STOOL UA Nitrite Negative (03/01/15 3:00 AM) Negative 03/01/2015 [facility] URINE AND STOOL UA Spec Grav 1.002 <=1.030 03/01/2015 [facility] URINE AND STOOL UA WBC 3 0 - 5 03/01/2015 [facility] URINE AND STOOL UA Sq Epi Occasional /LPF Few /LPF 03/01/2015 [facility] URINE AND STOOL UA Leuk Est Small *ABN* (03/01/15 3:00 AM) Negative 03/01/2015 [facility] URINE AND STOOL UA Protein Negative mg/dL Negative mg/dL 03/01/2015 [facility] URINE AND STOOL UA pH 6.0 5.0 - 8.0 03/01/2015 [facility] URINE AND STOOL UA Ketones Negative mg/dL Negative mg/dL 03/01/2015 [facility] URINE AND STOOL UA Glucose Negative mg/dL Negative mg/dL 03/01/[address] [facility] [address] METAL [place] Lvl 0.50 0.50 - 1.50 04/13/2014 [facility] TOXICOLOGY Carbamaz Lvl 9.6 8.0 - 12.0 04/13/2014 [facility] ELECTROLYTES AGAP 12.8 10.0 - 20.0 04/12/2014 [facility] ELECTROLYTES eGFR 100 04/12/2014 <sup>1</sup>Result Comment: The eGFR is calculated using the CKD-EPI formula. In most young, healthy individuals the eGFR will be >90 mL/min/1.73m2. The eGFR declines with age. An eGFR of 60-89 may be normal in some populations, particularly the elderly, for whom the CKD-EPI formula has not been extensively validated. Use of the eGFR is not recommended in the following populations:& lt;br/>
Individuals with unstable creatinine concentrations, including patients and those with serious co-morbid conditions.

Patients with extremes in muscle mass or diet.

The data above are obtained from the National Kidney Disease Education Program (NKDEP) which additionally recommends that when the eGFR is used in patients with extremes of body mass index for purposes of drug dosing, the eGFR should be multiplied by the estimated BMI. [facility] ELECTROLYTES Creatinine Lvl 0.7 0.5 - 1.4 04/12/2014 [facility] ELECTROLYTES CO2 28 24 - 32 04/12/2014 [facility] ELECTROLYTES Calcium Lvl 9.0 8.5 - 10.5 04/12/2014 [facility] ELECTROLYTES Glucose Lvl 138 70 - 99 04/12/2014 <sup>4</sup>Interpretive Data: Adult ref erence range values reflect the clinical guidelines
of the [place] [employer]. [facility] ELECTROLYTES BUN 7 7 - 22 04/12/2014 [facility] ELECTROLYTES Sodium Lvl 138 135 - 145 04/12/2014 [facility] ELECTROLYTES Potassium Lvl 3.8 3.5 - 5.1 04/12/2014 [facility] ELECTROLYTES Chloride Lvl 101 95 - 109 04/12/2014 [facility] HEMATOLOGY Microcyte 3+ *NA* (04/12/14 3:52 AM) None Seen 04/12/2014 [facility] HEMATOLOGY Monocytes 7.5 2.0 - 12.0 04/12/2014 [facility] HEMATOLOGY Eosinophils 4.5 0.0 - 4.0 04/12/2014 [facility] HEMATOLOGY Monocytes # 0.5 0.0 - 0.8 04/12/[address] [facility] Lymphocytes # 2.0 1.0 - 5.5 04/12/[address] [facility] Segs-Bands # 3.9 1.5 - 8.1 04/12/2014 [facility] HEMATOLOGY Basophils 0.7 0.0 - 1.0 04/12/2014 [facility] HEMATOLOGY Eosinophils # 0.3 0.0 - 0.5 04/12/2014 [facility] HEMATOLOGY Segs 57.8 45.0 - 75.0 04/12/2014 [facility] HEMATOLOGY Lymphocytes 29.5 20.0 - 40.0 04/12/[address] [facility] MPV 9.3 7.4 - 10.4 04/12/[address] [facility] Platelet 190 133 - 450 04/12/2014 [facility] HEMATOLOGY Hct 33.7 36.0 - 48.0 04/12/[address] [facility] MCHC 31.1 32.0 - 36.0 04/12/2014 [facility] HEMATOLOGY MCV 66.6 80.0 - 98.0 04/12/2014 [facility] HEMATOLOGY RDW 16.0 11.5 - 14.5 04/12/2014 [facility] HEMATOLOGY MCH 20.7 27.0 - 31.0 04/12/[address] [facility] Hgb 10.5 12.0 - 16.0 04/12/[address] [facility] WBC 6.8 3.7 - 10.4 04/12/2014 [facility] HEMATOLOGY RBC 5.07 4.20 - 5.40 04/12/2014 [facility] ELECTROLYTES AGAP 11.5 10.0 - 20.0 04/11/2014 [facility] ELECTROLYTES Potassium Lvl 3.5 3.5 - 5.1 04/11/2014 [facility] ELECTROLYTES Chloride Lvl 104 95 - 109 04/11/2014 [facility] ELECTROLYTES Sodium Lvl 139 135 - 145 04/11/2014 [facility] ELECTROLYTES Glucose Lvl 122 70 - 99 04/11/2014 <sup>5</sup>Interpretive Data: Adult ref erence range values reflect the clinical guidelines
of the [place] [employer]. [facility] ELECTROLYTES Calcium Lvl 8.7 8.5 - 10.5 04/11/2014 [facility] ELECTROLYTES CO2 27 24 - 32 04/11/2014 [facility] ELECTROLYTES BUN 5 7 - 22 04/11/2014 [facility] ELECTROLYTES Creatinine Lvl 0.7 0.5 - 1.4 04/11/2014 [facility] ELECTROLYTES eGFR 100 04/11/2014 <sup>2</sup>Result Comment: The eGFR is calculated using the CKD-EPI formula. In most young, healthy individuals the eGFR will be >90 mL/min/1.73m2. The eGFR declines with age. An eGFR of 60-89 may be normal in some populations, particularly the elderly, for whom the CKD-EPI formula has not been extensively validated. Use of the eGFR is not recommended in the following populations:& lt;br/>
Individuals with unstable creatinine concentrations, including patients and those with serious co-morbid conditions.

Patients with extremes in muscle mass or diet.

The data above are obtained from the National Kidney Disease Education Program (NKDEP) which additionally recommends that when the eGFR is used in patients with extremes of body mass index for purposes of drug dosing, the eGFR should be multiplied by the estimated BMI. [facility] HEMATOLOGY RBC 4.51 4.20 - 5.40 04/11/[address] [facility] WBC 6.9 3.7 - 10.4 04/11/[address] [facility] RDW 16.2 11.5 - 14.5 04/11/[address] [facility] MCH 20.7 27.0 - 31.0 04/11/[address] [facility] MCV 67.2 80.0 - 98.0 04/11/[address] [facility] Hct 30.3 36.0 - 48.0 04/11/[address] [facility] Hgb 9.3 12.0 - 16.0 04/11/[address] [facility] Platelet 176 133 - 450 04/11/[address] [facility] MCHC 30.8 32.0 - 36.0 04/11/[address] [facility] MPV 9.2 7.4 - 10.4 04/11/[address] [facility] Segs-Bands # 4.3 1.5 - 8.1 04/11/[address] [facility] Basophils 0.6 0.0 - 1.0 04/11/2014 [facility] HEMATOLOGY Eosinophils 5.2 0.0 - 4.0 04/11/[address] [facility] Monocytes 5.9 2.0 - 12.0 04/11/[address] [facility] Lymphocytes 25.1 20.0 - 40.0 04/11/[address] [facility] Segs 63.2 45.0 - 75.0 04/11/[address] [facility] Eosinophils # 0.4 0.0 - 0.5 04/11/[address] [facility] Microcyte 3+ *NA* (04/11/14 6:22 AM) None Seen 04/11/[address] [facility] Lymphocytes # 1.7 1.0 - 5.5 04/11/[address] [facility] Monocytes # 0.4 0.0 - 0.8 04/11/2014 [facility] CHEM PANEL eGFR 74 04/10/2014 <sup>3</sup>Result Comment: The eGFR is calculated using the CKD-EPI formula. In most young, healthy individuals the eGFR will be >90 mL/min/1.73m2. The eGFR declines with age. An eGFR of 60-89 may be normal in some populations, particularly the elderly, for whom the CKD-EPI formula has not been extensively validated. Use of the eGFR is not recommended in the following populations:& lt;br/>
Individuals with unstable creatinine concentrations, including patients and those with serious co-morbid conditions.

Patients with extremes in muscle mass or diet.

The data above are obtained from the National Kidney Disease Education Program (NKDEP) which additionally recommends that when the eGFR is used in patients with extremes of body mass index for purposes of drug dosing, the eGFR should be multiplied by the estimated BMI. [facility] CHEM PANEL AGAP 10.9 10.0 - 20.0 04/10/2014 [facility] CHEM PANEL Calcium Lvl 8.0 8.5 - 10.5 04/10/2014 [facility] CHEM PANEL Glucose Lvl 112 70 - 99 04/10/2014 <sup>6</sup>Interpretive Data: Adult ref erence range values reflect the clinical guidelines
of the [place] [employer]. [facility] CHEM PANEL BUN 6 7 - 22 04/10/2014 [facility] CHEM PANEL Creatinine Lvl 0.9 0.5 - 1.4 04/10/2014 [facility] CHEM PANEL Sodium Lvl 142 135 - 145 04/10/2014 [facility] CHEM PANEL Potassium Lvl 3.9 3.5 - 5.1 04/10/2014 [facility] CHEM PANEL Chloride Lvl 108 95 - 109 04/10/2014 [facility] CHEM PANEL CO2 27 24 - 32 04/10/2014 [facility] HEMATOLOGY RBC 4.29 4.20 - 5.40 04/10/2014 [facility] HEMATOLOGY MCV 67.3 80.0 - 98.0 04/10/2014 [facility] HEMATOLOGY Hgb 8.9 12.0 - 16.0 04/10/2014 [facility] HEMATOLOGY Hct 28.9 36.0 - 48.0 04/10/2014 [facility] HEMATOLOGY WBC 7.0 3.7 - 10.4 04/10/[address] [facility] MCH 20.8 27.0 - 31.0 04/10/[address] [facility] MCHC 30.9 32.0 - 36.0 04/10/[address] [facility] MPV 9.5 7.4 - 10.4 04/10/[address] [facility] RDW 16.0 11.5 - 14.5 04/10/[address] [facility] Platelet 156 133 - 450 04/10/[address] [facility] Lymphocytes # 1.3 1.0 - 5.5 04/10/[address] [facility] Monocytes # 0.4 0.0 - 0.8 04/10/[address] [facility] Microcyte 3+ *NA* (04/10/14 4:40 AM) None Seen 04/10/[address] [facility] Eosinophils # 0.3 0.0 - 0.5 04/10/[address] [facility] Segs 70.8 45.0 - 75.0 04/10/[address] [facility] Lymphocytes 18.5 20.0 - 40.0 04/10/[address] [facility] Monocytes 5.6 2.0 - 12.0 04/10/[address] [facility] Segs-Bands # 4.9 1.5 - 8.1 04/10/[address] [facility] Basophils 0.4 0.0 - 1.0 04/10/[address] [facility] Eosinophils 4.7 0.0 - 4.0 04/10/2014 [facility] BLOOD BANK RESULTS ABO/Rh O POS 04/02/2014 [facility] BLOOD BANK RESULTS Antibody Scrn Negative (04/02/14 2:50 PM) 04/02/[address] [facility] PTT 30.8 22.9 - 35.8 04/02/2014 <sup>8</sup>Interpretive Data: Heparin T herapeutic Range: 57 - [address] [facility] PT 12.9 12.0 - 14.7 04/02/[address] [facility] INR 0.97 0.85 - 1.17 04/02/2014 <sup>7</sup>Interpretive Data: RECOMMEND ED RANGES FOR PROTIME INR:
2.0-3.0 for most medical and surgical thromboembolic states.
2.5-3.5 for artificial heart valves and recurrent embolism.

INR SHOULD BE USED ONLY FOR PATIENTS ON STABLE ANTICOAGULANT THERAPY. [facility] Basophils # 0.1 0.0 - 0.2 04/02/2014 [facility] LIPIDS HDL 42 >=61 mg/dL 01/31/2014 [facility] LIPIDS Chol 154 <=199 mg/dL 01/31/2014 [facility] LIPIDS VLDL 46 01/31/2014 [facility] LDL (Calculated) 66 <=99 mg/dL 01/31/2014 [facility] LIPIDS Trig 229 <=149 mg/dL 01/31/2014 [facility] LIPIDS CHD Risk 3.67 3.90 - 5.80 01/31/2014 [facility] METAL [place] Lvl 0.57 0.50 - 1.50 01/31/2014 [facility] SPECIAL CHEMISTRY Hgb A1C 4.8 <=5.6 % 01/31/2014 [facility] TOXICOLOGY Carbamaz Lvl 4.2 8.0 - 12.0 01/31/2014 [facility] DRUG SCREEN U Opiate Scr Posi tive *ABN* (01/30/14 9:50 PM) Negative 01/31/2014 [facility] DRUG SCREEN U Phencyc Scr Nega tive *NA* (01/30/14 9:50 PM) Negative 01/31/2014 [facility] DRUG SCREEN UDS Note See Note 3 (01/30/14 9:50 PM) 01/31/2014 <sup>3</sup>Interpretive Torey a: Drugs reported as positive have not been confirmed by a second
method and should be used for medical purposes only. To order
confirmation, contact laboratory.

note: Below are cut-off concentrations for all urine drugs of
abuse performed in the laboratory. Some drugs listed in the table
may not be included in this panel.

Description Cut-off concentration

Ampheta mine 1000 ng/mL
Barbiturates 200 ng/mL
Benzodiazepines 300 ng/mL
Cocaine metabolites 300 ng/mL
Opiates 300 ng/mL
Phencyclidine 25 ng/mL
Propoxyphene 300 ng/mL
Marijuana metabolites 50 ng/mL
Methadone 300 ng/mL
Urine alcohol 20 mg/dL [facility] DRUG SCREEN U Amph Scr Posi tive *ABN* (01/30/14 9:50 PM) Negative 01/31/2014 [facility] DRUG SCREEN U Benzodia Scr Posi tive *ABN* (01/30/14 9:50 PM) Negative 01/31/2014 [facility] DRUG SCREEN U Alvina Scr Nega tive *NA* (01/30/14 9:50 PM) Negative 01/31/2014 [facility] DRUG SCREEN U Cannab Scr Nega tive *NA* (01/30/14 9:50 PM) Negative 01/31/2014 [facility] DRUG SCREEN U Cocaine Scr Nega tive *NA* (01/30/14 9:50 PM) Negative 01/31/2014 [facility] URINE AND STOOL UA Urobilinogen <=1.0 mg/dL 0.1 - 1.0 01/31/[address] [facility] [address] URINE AND STOOL UA Color Ltyellow 01/31/2014 [facility] URINE AND STOOL UA Blood Negative (01/30/14 9:50 PM) Negative 01/31/2014 [facility] URINE AND STOOL UA Nitrite Negative (01/30/14 9:50 PM) Negative 01/31/2014 [facility] URINE AND STOOL UA RBC 1 0 - 2 01/31/2014 [facility] URINE AND STOOL UA Hyal Cast 3 0 - 2 01/31/2014 [facility] URINE AND STOOL UA Glucose Negative mg/dL Negative mg/dL 01/31/[address] [facility] [address] URINE AND STOOL UA Ketones Negative mg/dL Negative mg/dL 01/31/2014 [facility] URINE AND STOOL UA Bili Negative *NA* (01/30/14 9:50 PM) Negative 01/31/2014 [facility] URINE AND STOOL UA Protein Negative mg/dL Negative mg/dL 01/31/[address] [facility] [address] URINE AND STOOL UA Sq Epi Few /LPF Few /LPF 01/31/2014 [facility] URINE AND STOOL UA pH 6.0 5.0 - 8.0 01/31/2014 [facility] URINE AND STOOL UA Leuk Est Negative (01/30/14 9:50 PM) Negative 01/31/2014 [facility] URINE AND STOOL UA WBC 1 0 - 5 01/31/2014 [facility] URINE AND STOOL UA Spec Grav 1.010 <=1.030 01/31/2014 [facility] URINE AND STOOL UA Turbidity Slight *ABN* (01/30/14 9:50 PM) Clear 01/31/2014 [facility] CARDIAC ENZYMES CK MB <0.5 0.5 - 3.6 01/31/2014 [facility] CARDIAC ENZYMES Total CK 35 12 - 191 01/31/2014 [facility] CARDIAC ENZYMES Troponin-I <0.02 0.00 - 0.40 01/31/2014 [facility] CARDIAC ENZYMES CK MB Index <1.4 0.0 - 2.5 01/31/2014 [facility] CHEM PANEL eGFR 100 01/31/2014 <sup>1</sup>Result Comment: The eGFR is calculated using the CKD-EPI formula. In most young, healthy individuals the eGFR will be >90 mL/min/1.73m2. The eGFR declines with age. An eGFR of 60-89 may be normal in some populations, particularly the elderly, for whom the CKD-EPI formula has not been extensively validated. Use of the eGFR is not recommended in the following populations:& lt;br/>
Individuals with unstable creatinine concentrations, including patients and those with serious co-morbid conditions.

Patients with extremes in muscle mass or diet.

The data above are obtained from the National Kidney Disease Education Program (NKDEP) which additionally recommends that when the eGFR is used in patients with extremes of body mass index for purposes of drug dosing, the eGFR should be multiplied by the estimated BMI. [facility] CHEM PANEL Total Protein 6.7 6.4 - 8.4 01/31/2014 [facility] CHEM PANEL Albumin Lvl 3.4 3.5 - 5.0 01/31/2014 [facility] CHEM PANEL Calcium Lvl 8.2 8.5 - 10.5 01/31/2014 [facility] CHEM PANEL CO2 27 24 - 32 01/31/2014 [facility] CHEM PANEL Alk Phos 38 39 - 136 01/31/2014 [facility] CHEM PANEL Bili Total 0.2 0.2 - 1.3 01/31/2014 [facility] CHEM PANEL AST 10 0 - 37 01/31/2014 [facility] CHEM PANEL ALT 18 0 - 65 01/31/2014 [facility] CHEM PANEL A/G Ratio 1.0 0.7 - 1.6 01/31/2014 [facility] CHEM PANEL B/C Ratio 13 6 - 25 01/31/2014 [facility] CHEM PANEL AGAP 8.5 10.0 - 20.0 01/31/2014 [facility] CHEM PANEL Globulin 3.3 2.0 - 4.0 01/31/2014 [facility] CHEM PANEL Glucose Lvl 109 70 - 99 01/31/2014 <sup>2</sup>Interpretive Data: Adult ref erence range values reflect the clinical guidelines
of the [place] [employer]. [facility] CHEM PANEL Chloride Lvl 107 95 - 109 01/31/2014 [facility] CHEM PANEL Potassium Lvl 3.5 3.5 - 5.1 01/31/2014 [facility] CHEM PANEL Sodium Lvl 139 135 - 145 01/31/2014 [facility] CHEM PANEL Creatinine Lvl 0.7 0.5 - 1.4 01/31/2014 [facility] CHEM PANEL BUN 9 7 - 22 01/31/2014 [facility] HEMATOLOGY RBC 4.91 4.20 - 5.40 01/31/[address] [facility] Hgb 10.2 12.0 - 16.0 01/31/[address] [facility] Hct 32.5 36.0 - 48.0 01/31/[address] [facility] MCV 66.2 80.0 - 98.0 01/31/[address] [facility] MCH 20.7 27.0 - 31.0 01/31/[address] [facility] MCHC 31.3 32.0 - 36.0 01/31/[address] [facility] RDW 15.6 11.5 - 14.5 01/31/[address] [facility] Platelet 184 133 - 450 01/31/[address] [facility] MPV 9.3 7.4 - 10.4 01/31/[address] [facility] WBC 7.0 3.7 - 10.4 01/31/[address] [facility] PTT 26.4 22.9 - 35.8 01/31/2014 <sup>7</sup>Interpretive Data: Heparin T herapeutic Range: 57 - [address] [facility] INR 1.07 0.85 - 1.17 01/31/2014 <sup>6</sup>Interpretive Data: RECOMMEND ED RANGES FOR PROTIME INR:
2.0-3.0 for most medical and surgical thromboembolic states.
2.5-3.5 for artificial heart valves and recurrent embolism.

INR SHOULD BE USED ONLY FOR PATIENTS ON STABLE ANTICOAGULANT THERAPY. [facility] PT 13.9 12.0 - 14.7 01/31/[address] [facility] Segs-Bands # 4.1 1.5 - 8.1 01/31/2014 [facility] HEMATOLOGY Basophils 0.7 0.0 - 1.0 01/31/[address] [facility] Anisocyte 1+ *ABN* (01/30/14 7:56 PM) None Seen 01/31/[address] [facility] Lymphocytes # 2.3 1.0 - 5.5 01/31/[address] [facility] Microcyte 3+ *NA* (01/30/14 7:56 PM) None Seen 01/31/[address] [facility] Monocytes # 0.3 0.0 - 0.8 01/31/[address] [facility] Eosinophils # 0.2 0.0 - 0.5 01/31/[address] [facility] Segs 58.7 45.0 - 75.0 01/31/[address] [facility] Plt Morph Julee l (01/30/14 7:56 PM) 01/31/[address] [facility] Monocytes 3.7 2.0 - 12.0 01/31/[address] [facility] Lymphocytes 33.7 20.0 - 40.0 01/31/[address] [facility] Eosinophils 3.2 0.0 - 4.0 01/31/2014 [facility] IMMUNOLOGY CDC HIV 4th GEN Negat jarad (01/30/14 7:56 PM) Negative 01/31/2014 [facility] TOXICOLOGY Etoh (%) <0.003 01/31/2014 <sup>4</sup>Interpretive Data: Ethanol testing results should be used for medical purposes only.
Negative Range: <0.003%
Toxic Range: >0.25% [facility] TOXICOLOGY Ethanol Lvl <3 01/31/2014 <sup>5</sup>Interpretive Data: Negative Range: <3 mg/dL
Toxic Range: >250 mg/dL [facility] Pathology Reports No Data Provided for This Section Diagnostic Reports Report Value Date Source Carotid artery Doppler bilat US PROCEDURE INFORMATION: Exam: US Duplex Bilateral Extracranial Arteries Exam date and time: 06/21/2019 10:08 AM Age: 58 years old Clinical indication: Syncope and collapse/syncope, left S/P cea 2013 TECHNIQUE: Imaging protocol: Real-time Duplex ultrasound scan of the bilateral carotid and vertebral arteries combining chang scale, color Doppler and spectral waveform analysis. Bilateral exam. COMPARISON: No relevant prior studies available. FINDINGS: There is no significant intimal thickening visualized in either carotid system. No significant plaque formation is noted on either side. RIGHT: ICA PSV 91 cm/sec. CCA PSV 118 cm/sec. ICA/CCA Ratio 0.8. LEFT: ICA PSV 100 cm/sec. CCA PSV 118 cm/sec. ICA/CCA Ratio 0.8. Antegrade flow is visualized in both vertebral arteries. IMPRESSION: No sonographic evidence for a hemodynamically significant stenosis. ? REFERENCE: Carotid Stenosis Reference using SRU criteria: Mild: less than 50% stenosis. ICA PSV is less than 125 cm/second and plaque or intimal thickening is visible. Moderate: 50-69% stenosis. ICA PSV is 125 to 230 cm/second and plaque is visible. Severe: 70-94% stenosis. ICA PSV is more than 230 cm/second and visible plaque and lumen narrowing are seen. Near occlusion: 95-99% stenosis. ICA PSV is variable and significant plaque and luminal narrowing are seen. Occluded: 100% stenosis. No flow identified. Hayden Walton MD On 06/21/2019 12:40:25; [id number] 06/21/2019 [facility] Pulmonary Embolism CTA Radiation Dose CTDIVOL = 0 (mGy): DLP = 864.31 (mGy-cm) PROCEDURE INFORMATION: Exam: CT Angiography Chest With Contrast Exam date and time: 06/20/2019 4:56 PM Age: 58 years old Clinical indication: Right-sided chest pain; Additional info: /chestpain, syncope. PT C/O, 'r sided cp that started @ approx 1300 this afternoon, ' PT reports that cp radiates around to her R shoulder blade, PT also reporting nausea \\T\\ vomiting that started w/onset of cp, PT reports HX of TIA, PT aao x4 @ this time TECHNIQUE: Imaging protocol: Computed tomographic angiography of the chest with intravenous contrast. 3D rendering: MIP and/or 3D reconstructe d images were created by the technologist. Total DLP: 864.31 mGy-cm Radiation optimization: All CT scans at this facility use at least one of these dose optimization techniques: automated exposure control; mA and/or kV adjustment per patient size (includes targeted exams where dose is matched to clinical indication); or iterative reconstruction. Contrast material: OMNI; Contrast volume: 100 ml; Contrast route: IV; COMPARISON: CHEST 1VIEW DX 06/20/2019 3:30 PM FINDINGS: Pulmonary arteries: No visualized pulmonary emboli. Great vessels off aortic arch: Unremarkable. Aorta: Mild atherosclerotic calcification demonstrated within the aorta. Superior vena cava: Unremarkable. Lungs: Bilateral diffuse mild interstitial pulmonary opacities are demonstrated. Ground-glass interstitial pulmonary opacities within bilateral lungs. No consolidation identified. Pulmonary nodule within the left lower lobe. Measurement: 4 mm. Axial image 48. Pleural space: No pneumothorax. No pleural effusion. Heart: Coronary artery calcifications identified. Mediastinum: Unremarkable. Gallbladder and bile ducts: The gallbladder has been surgically removed. Surgical clips identified in the gallbladder fossa. Lymph nodes: No evidence for enlarged lymphadenopathy. Bones/joints: Mild generalized bony degenerative changes. Soft tissues: Unremarkable. IMPRESSION: 1. Mild diffuse interstitial pulmonary o pacities. Possible infiltrates, pneumonia or pneumonitis. 2. No visualized pulmonary embolus. 3. Left lower lobe pulmonary nodule. For patients at low risk (minimal or absent history of smoking and of other known risk factors), no routine follow-up is indicated. For patients at high risk (history of smoking or of other known risk factors), consider optional CT at 12 months. (Nithin et al., Fleischner Society, 2017) Ramon Blanco MD On 06/20/2019 17:13:28; [id number] 06/20/2019 [facility] Chest 1view DX PROCEDURE INFOR MATION: Exam: XR Chest, 1 View Exam date and time: 06/20/2019 3:30 PM Age: 58 years old Clinical indication: Shortness of breath and other: Vomitting, syncope; Chest pain and other: Jaw pain; Right-sided chest pain; Patient HX: HX of dm; Additional info: /chest pain TECHNIQUE: Imaging protocol: XR of the chest Views: 1 view. COMPARISON: CR CHEST 2 VIEWS DX 09/17/2015 12:52 PM FINDINGS: Lungs: There are normal lung volumes without consolidation or interstitial oppacities. Pleural space: No pleural effusion. No pneumothorax. Heart/Mediastinum: The heart size is normal. The pulmonary vasculature is normal. The mediastinal contour is normal. The trachea is midline. Bones/joints: No acute abnormality seen. IMPRESSION: No acute cardiopulmonary findings. Mac Rebolledo MD On 06/20/2019 15:44:50; [id number] 06/20/2019 [facility] Brain wo contrast MRI Patient Name: BEATA BUTT : 1960; Age: 54 years y/o Female MR: [id number] Study: Brain wo contrast MRI 09/17/2015 4:27 PM CDT Ordering Physician: Tomas Dietz MD Clinical Indication: Ataxia; Comparison: CT head dated 09/17/2015 and MRI brain dated 01/31/2014 TECHNIQUE: Multiplanar MRI of the brain is performed on a 1.5 Rosa magnet. Contrast: None. FINDINGS: BRAIN PARENCHYMA: No abnormal signal identified on diffusion-weighted imaging to suggest an acute infarction. No abnormal areas of signal intensity identified about the brain. No significant extra-axial fluid collection, mass effect or shift. CEREBELLOPONTINE REGIONS AND SKULL BASE: The craniocervical junction, skull base and pituitary gland are unremarkable. Cerebellar pontine angles unremarkable bilaterally. VENTRICLES: The ventricles and sulci are within normal limits for the patient's age. VESSELS: Normal flow voids identified in the major vessels at the base of the brain. ORBITS, VISUALIZED PARANASAL SINUSES AND MASTOIDS: Soft tissue hypertrophy to the left middle and inferior turbinate. IMPRESSION: 1. Soft tissue hypertrophy to the left m iddle and inferior turbinate. 2. Otherwise unremarkable MRI brain with out contrast. SL: [id number] 09/17/2015 [facility] Chest 2 views DX Chest 2 views DX CLINICAL HISTORY:Dizziness COMPARISON: 01/30/2014 FINDINGS: LUNGS: Lungs are reasonably well inflated. No opacities or effusions. No pneumothorax. Trachea is midline. Pulmonary vasculature is within normal limits. CARDIOMEDIASTINUM: Cardiomediastinal silhouette is within normal limits. OSSEOUS STRUCTURES: No significant bony abnormality is noted. IMPRESSION: Normal 2 view chest. SL: [id number] 09/17/2015 [facility] Brain wo contrast CT Patient N karyn: BEATA BUTT : 1960; Age: 54 years y/o Female MR: [id number] * CRANIAL CT without contrast History: Vertigo; Comparison: 03/01/2015. TECHNIQUE: CT images were obtained from the foramen magnum to the vertex without the use of intravenous contrast on a multidetector CT. Coronal and sagittal reconstructions were obtained. CT radiation dose DLP: 1467 mGy-cm FINDINGS: There is very mild atrophy. There is otherwise normal appearance of the ventricular system and extraventricular CSF spaces. There is no evidence of mass, midline shift, hemorrhage, extra-axial fluid collection, or acute infarction. The calvarium is intact. The visualized paranasal sinuses and the mastoids are clear. IMPRESSION: 1. No evidence of an acute intracranial process. 2. Very mild atrophy. SL: [id number] 09/17/2015 [facility] contrast CT CT HEAD W ITHOUT CONTRAST: CLINICAL HISTORY: Seizures TECHNIQUE AND FINDINGS: A routine CT head was performed without contrast injection. COMPARISON: 04/11/2014. The brain volume and ventricle size are appropriate for age. No definite acute intracranial hemorrhage, mass, mass-effect, or extra-axial fluid collection is appreciated. The chang-white matter junction differentiation is preserved. The visualized portions of the paranasal sinuses are clear. No acute fracture dislocation, or suspicious osseous lesion. IMPRESSION: Normal brain without acute intracranial abnormality. More sensitive evaluation for a focus of seizure may be obtained with MRI if clinically indicated. SL:17 03/01/2015 [facility] contrast CT CT Head n o Contrast: COMPARISON: 01/30/2014 CLINICAL HX: Headache TECHNIQUE: Contiguous transaxial images of the brain were performed without administration of IV contrast. FINDINGS: There is no evidence for parenchymal bleed, extra-axial collections, intracranial masses or midline shift. No displaced fractures of the calvarium or other significant bony abnormality is noted. No acute infarct is evident. The visualized paranasal sinuses and the mastoids are clear. IMPRESSION: No significant acute brain abnormality is noted. SL:13 04/11/2014 [facility] contrast MRI MRI BRAI N WITHOUT CONTRAST CLINICAL INFORMATION: Hemiparesis. COMPARISON: CT angiogram head and neck of 01/30/2014. TECHNIQUE: Multiecho multiplanar images of the brain were done without contrast injection. FINDINGS: The ventricles, sulci and cisterns are appropriate for age. There is no significant focal signal abnormality in the chang or the white matter. No mass, hemorrhage or collection is identified. The pituitary gland is normal in size. The cerebellar tonsils are normal in position. There is no restricted diffusion. Normal T2 flow voids are present. Minimal mucosal thickening within the floor of the left maxillary sinus. IMPRESSION: 1. No definite acute infarct or intracra nial hemorrhage. No mass or neoplasm SL: 12 01/31/2014 [facility] Brain/Neck CTA EXAM: CTA head and neck. HISTORY: Ataxia. COMPARISON: None TECHNIQUE: Thin collimation axial images obtained of the carotid and vertebral arteries and [place] of [place] with sagittal and coronal reformats and 3-D volume rendered images. IV contrast given. COMPARISON: None. FINDINGS: 1. High-grade approximately 80-90% steno sis proximal left internal carotid artery. 2. 50% stenosis mid/distal left common c arotid artery. 3. Patent right common and internal win tid arteries without hemodynamically significant stenosis. 4. No dissection. Bovine aortic arch. 5. Motion artifact. [place] of [place] oth erwise appears unremarkable. No aneurysm seen. SL: 14 01/30/2014 [facility] Consultation Notes No Data Provided for This Section Discharge Summaries No Data Provided for This Section History and Physicals No Data Provided for This Section Vital Signs Vital Sign Value Date Comments Source Temperature Oral (F) 97.8 F 06/21/2019 [facility] Respitory Rate 16 06/21/2019 [facility] Heart Rate 59 06/21/2019 [facility] Systolic (mm Hg) 108 06/21/2019 [facility] Diastolic (mm Hg) 69 06/21/2019 [facility] Weight 95.568 06/21/2019 [facility] Temperature Oral (F) 98.0 F 06/21/2019 [facility] Heart Rate 58 06/21/2019 [facility] Respitory Rate 18 06/21/2019 [facility] Systolic (mm Hg) 108 06/21/2019 [facility] Diastolic (mm Hg) 67 06/21/2019 [facility] Temperature Oral (F) 97.8 F 06/21/2019 [facility] Heart Rate 56 06/21/2019 [facility] Respitory Rate 16 06/21/2019 [facility] Systolic (mm Hg) 100 06/21/2019 [facility] Diastolic (mm Hg) 60 06/21/2019 [facility] Height 182.88 cm 06/21/2019 [facility] Weight 95.455 06/21/2019 [facility] BMI Calculated 28.54 06/21/2019 [facility] BMI Calculated 28.54 06/20/2019 [facility] Height 182.88 cm 06/20/2019 [facility] BMI Calculated 28.54 06/20/2019 [facility] Weight 95.455 06/20/2019 [facility] Temperature Oral (F) 97.9 F 09/19/2015 [facility] Systolic (mm Hg) 176 09/19/2015 [facility] Diastolic (mm Hg) 84 09/19/2015 [facility] Temperature Oral (F) 97.3 F 09/19/2015 [facility] Systolic (mm Hg) 135 09/19/2015 [facility] Diastolic (mm Hg) 85 09/19/2015 [facility] Respitory Rate 15 09/19/2015 [facility] Heart Rate 58 09/19/2015 [facility] Heart Rate 72 09/19/2015 [facility] Temperature Oral (F) 98.0 F 09/19/2015 [facility] Systolic (mm Hg) 124 09/19/2015 [facility] Diastolic (mm Hg) 76 09/19/2015 [facility] Respitory Rate 16 09/19/2015 [facility] Heart Rate 73 09/19/2015 [facility] Respitory Rate 16 09/19/2015 [facility] Height 182.88 cm 09/18/2015 [facility] Weight 90.909 09/18/2015 [facility] BMI Calculated 27.18 09/18/2015 [facility] Weight 90.909 09/17/2015 [facility] BMI Calculated 27.18 09/17/2015 [facility] Height 182.88 cm 09/17/2015 [facility] Respitory Rate 20 03/01/2015 [facility] Respitory Rate 19 03/01/2015 [facility] Systolic (mm Hg) 164 03/01/2015 [facility] Diastolic (mm Hg) 90 03/01/2015 [facility] Weight 111.364 03/01/2015 [facility] BMI Calculated 33.3 03/01/2015 [facility] Heart Rate 90 03/01/2015 [facility] Systolic (mm Hg) 157 03/01/2015 [facility] Diastolic (mm Hg) 88 03/01/2015 [facility] Temperature Oral (F) 98.0 F 03/01/2015 [facility] Respitory Rate 20 03/01/2015 [facility] Height 182.88 cm 03/01/2015 [facility] Temperature Oral (F) 97.8 F 04/16/2014 [facility] Respitory Rate 16 04/16/2014 [facility] Heart Rate 76 04/16/2014 [facility] Systolic (mm Hg) 13 04/16/2014 [facility] Diastolic (mm Hg) 78 04/16/2014 [facility] Respitory Rate 14 04/16/2014 [facility] Heart Rate 74 04/16/2014 [facility] Temperature Oral (F) 98.2 F 04/16/2014 [facility] Diastolic (mm Hg) 78 04/16/2014 [facility] Respitory Rate 16 04/16/2014 [facility] Systolic (mm Hg) 115 04/16/2014 [facility] Diastolic (mm Hg) 71 04/16/2014 [facility] Systolic (mm Hg) 109 04/16/2014 [facility] Heart Rate 66 04/16/2014 [facility] Temperature Oral (F) 97.6 F 04/16/2014 [facility] Weight 95.7 04/10/2014 [facility] BMI Calculated 27.18 04/02/2014 [facility] Weight 90.909 04/02/2014 [facility] Height 182.88 cm 04/02/2014 [facility] Systolic (mm Hg) 129 02/04/2014 [facility] Diastolic (mm Hg) 80 02/04/2014 [facility] Temperature Oral (F) 97.9 F 02/04/2014 [facility] Heart Rate 64 02/04/2014 [facility] Respitory Rate 16 02/04/2014 [facility] Respitory Rate 16 02/04/2014 [facility] Systolic (mm Hg) 125 02/04/2014 [facility] Diastolic (mm Hg) 86 02/04/2014 [facility] Respitory Rate 16 02/04/2014 [facility] Heart Rate 71 02/04/2014 [facility] Temperature Oral (F) 98.7 F 02/04/2014 [facility] Diastolic (mm Hg) 67 02/04/2014 [facility] Systolic (mm Hg) 99 02/04/2014 [facility] Heart Rate 61 02/04/2014 [facility] Temperature Oral (F) 98.8 F 02/04/2014 [facility] Weight 88.864 01/31/2014 [facility] BMI Calculated 26.57 01/31/2014 [facility] Height 182.88 cm 01/31/2014 [facility] BMI Calculated 27.76 01/31/2014 [facility] Weight 95.455 01/31/2014 [facility] Height 185.42 cm 01/31/2014 [facility] Encounters Location Location Details Encounter Type Encounter Number Reason For Visit Attending Provider ADM Date DC Date Status Source [facility] Inpatient [id number] Earl Philip 01/31/2014 02/04/2014 [facility] Inpatient [id number] Felix Salvador 04/09/2014 04/16/2014 [facility] [id number] Allen Alexis 03/01/2015 03/01/2015 [facility] Inpatient [id number] Dago Sue 09/17/2015 09/19/2015 [facility] Observation [id number] Franklyn Cash 06/20/2019 06/21/2019 [facility] Procedures Procedure Code Date Perfomer Comments Source Carotid endarterectomy<sup>1</sup> [id number] 04/09/2014 left [facility] Hysterectomy [id number] 05/09/1997 [facility] Discectomy [id number] 05/09/1996 [facility] Cholecystectomy [id number] 05/09/1994 [facility] Decompression of ulnar nerve 2 [id number] [facility] Assessment and Plan Assessment and Plan Date Source Extracted from:Title: Clinical Document Author: Saira Delagdo NP Date: 06/21/19 [facility] Cardiology Consultation / History and Physical Chief Complaint: Syncope and chest pain Reason for Consult: Syncope and chest pain HPI: This a 58-year-old female with a past medical history of type 2 diabetes, thalassemia, previous TIA, left CEA in 2013, seizures, bipolar, depression, and anxiety who is admitted for right sided chest pain and syncopal episode. We were consulted to evaluate her chest pain and syncope. Of note, she has followed with Dr. Bain in the past but has not seen him since 2013. The patient states she stood up and was walking to her kitchen when she became dizzy and felt weak in the legs, she remembers feeling her knee buckle and then her was waking her up and helping her off the floor and thinks she had blacked out for less than 3 minutes. Approximately 10 minutes later she took a bite food when she felt a squeezing chest pain to the right side of her chest and felt the need to vomit for which she did. She states the pain lasted less than 15 minutes before it subsided but then came back 2 to 3 more times. Troponin are negative for 3 sets. Her EKG shows normal sinus rhythm with nonspecific T wave abnormality but no acute ischemic changes. CTA showed mild diffuse interstitial pulmonary opacities possible infiltrates pneumonia or pneumonitis. No visualized pulmonary embolus in the left lower lobe pulmonary nodule. Chest x-ray showed no acute cardiopulmonary findings. At home she takes Trulicity, Tresiba, Seroquel 200 mg at bedtime, trazodone 200 mg at bedtime, [place] 0.5 mg at bedtime, buspirone 7.5 mg twice a day, gabapentin 600 mg 3 times a day, aspirin 81 mg daily, Zoloft 50 mg at bedtime, metformin 1000 mg twice a day. [place] Operator: Dr. Bain Past Medical History: Seizure TMJ (dislocation of temporomandibular joint) Bulging disc Migraine TIA (transient ischemic attack) Past Surgical History: Carotid endarterectomy: 04/09/14 Hysterectomy: 1997 Discectomy: 1996 Cholecystectomy: 1994 Decompression of ulnar nerve Home Medications: No qualifying data available Allergies: Allergies: penicillins Social History: Employment/School Details: Highest education level: Some college.; Comment(s): Associate degree Alcohol Details: Never Tobacco Details: Use: Former smoker. Type: Cigarettes. Tobacco smoke exposure: None. Did the Patient Smoke Cigarettes Anytime During the Last 365 Days? No. Cessation Counseling Provided? No. Details: Use: Current every day smoker. Type: Cigarettes. Tobacco smoke exposure: Lives with someone who smokes. Did the Patient Smoke Cigarettes Anytime During the Last 365 Days? Yes. Cessation Counseling Provided? No. Details: Use: Current every day smoker. Type: Cigarettes. Ready to change: No. Tobacco smoke exposure: Lives with someone who smokes. Did the Patient Smoke Cigarettes Anytime During the Last 365 Days? Yes. Cessation Counseling Provided? Yes. Details: Use: Current every day smoker. Type: Cigarettes. 10 per day. 38 year(s). Tobacco smoke exposure: None. Did the Patient Smoke Cigarettes Anytime During the Last 365 Days? Yes. Cessation Counseling Provided? No.; Comment(s): quit 04/07/2014 Substance Abuse Details: Use: None. Family History: Father: Cancer; Heart disease Mother: Cancer; Heart disease Grandparent: Cancer; Heart disease Review of Systems: General/Constitutional: Fatigue - no Weakness - yes. Weight gain - no. Headaches - yes Fever - no Allergy/Immunology: Colds - no. Cough - no. HEENT/Neck: Dizziness - yes. Change in vision - yes. Respiratory: Chest congestion - no Cough - no. Pain with breathing - no. Shortness of breath - no. Swelling of the legs - no. Wheezing - no. Cardiovascular: Chest pain - yes. Claudication - no. Dyspnea on exertion - no. Palpitations - no. Gastrointestinal: Abdominal pain - no. Change in bowel habits - no. Constipation - no. Diarrhea - no. Nausea - yes. Vomiting - yes Hematology: Easy bleeding - no. Easy bruising - no. Musculoskeletal: Back pain - no. Myalgias - no Vitals Tmp(F) Pulse BP RR SpO2 FIO2 02/13 07:02 98.0 58 108/67 1 8 98 --- 06/21 03:28 97.8 56 100/60 1 6 97 --- 06/20 23:21 98.0 70 103/65 1 6 97 --- 06/20 20:18 ---- --- ----- 1 8 96 --- 06/20 19:51 ---- --- 132/85 -- --- --- 24 Hr Tmax: 98.2F (36.78c) at 06/20 14:3 8 Vital Signs are the last 5 in the past 48 hours. Physical Exam: General: Awake and alert, Oriented Neck: Supple, no JVD or Bruits Cardiovascular: Regular, normal S1 S2, No significant murmurs. Lungs: Clear bilaterally, no rales or wheezing Abdomen: Soft, NT/ND +BS Extremities: No edema, + peripheral pulses Neuro: No focal neurological abnormalities Labs: Labs (Last four charted values) WBC 6.0 (JUN 20) Hgb L 11.8 (JUN 20) Hct 37.7 (JUN 20) Plt 181 (JUN 20) Na 140 (JUN 20) K 3.8 (JUN 20) CO2 27 (JUN 20) Cl 106 (JUN 20) Cr 0.96 (JUN 20) BUN 17 (JUN 20) Glucose Random H 126 (JUN 20) Ca 9.1 (JUN 20) PT 13.0 (JUN 20) INR 0.98 (JUN 20) PTT 26.5 (JUN 20) Troponin <0.02 (JUN 20) <0.02 (JUN 20) <0.02 (JUN 20) Scheduled Medications: Scheduled Meds (14): 06/20/19 QUEtiapine (SEROquel) 200 mg PO Bedtime 06/21/19 aspirin 81 mg PO Daily 06/21/19 azithromycin + Sodium Chloride 0.9% IV 250 mL 500 mg IVPB [id number] 166.67 ml/hr 06/21/19 busPIRone 7.5 mg PO BID 06/21/19 cefTRIAXone + sterile water 10 mL 1 gm IVP [id number] 120 ml/hr 06/20/19 enoxaparin (Lovenox) 40 mg SUB- Q [id number] 06/21/19 gabapentin (gabapentin 600 mg o ral tablet) 600 mg PO TID 06/21/19 insulin glargine 15 unit SUB-Q Daily 0 ml/hr 06/21/19 metFORMIN 1,000 mg PO BID 06/21/19 non-formulary (Trulicity Pen 1. 5 mg/0.5 mL subcutaneous solution) 1.5 mg SUB-Q QThu 06/21/19 non-formulary (RN: Pls bring pt own trulicity to pharmacy for label.) MISC QSHIFT 06/21/19 sertraline (Zoloft) 50 mg PO Be dtime 06/20/19 sodium chloride (Saline Flush 0 .9%) 10 ml IVP Q12H 06/20/19 trazodone 50 mg PO Bedtime Continuous Infusions: Continuous Infusions (1): 06/20/19 Lactated Ringers Injection IV 1 ,000 mL (Lactated Ringers IV 1,000 mL) 1,000 mL 75 ml/hr Impression: 58-year-old female admitted with syncope and right-sided chest pain Syncope Atypical chest pain Pneumonia Left CEA in 2013 Previous TIA Seizures Diabetes type 2 Thalassemia Bipolar Depression Anxiety Outpatient cardiology: Dr. Bain Plan: Patient comes in after having a syncopal episode and loss of consciousness for less than 3 minutes and squeezing chest pain to the right side radiating to her back. EKG is normal sinus rhythm with no acute hemic changes. Troponin are negative for a total of 3 sets. Her chest pain is atypical. She does have a history of having a carotid endarterectomy and states she was told she did have some stenosis to the right side as well, therefore we will order carotid ultrasounds. An echo will be obtained. We will check orthostatic blood pressures. We will monitor her on telemetry. She is receiving antibiotics for the pneumonia per primary. She would benefit from further cardiac evaluation and stress test but this can be done as an outpatient. If the pending tests are normal, she may be able to discharge later today. Plan was discussed with the patient and all questions answered. Please call with any questions. Case and plan discussed with Dr. Santos. Addendum: Patient seen and examined with MDM SR. Agree with MDM SR Saira Delgado as noted above with any changes/additions listed below in my addendum. Please call with any questions. She had a syncopal episode with very atypical chest pain. Chest pain happened after she was eating some food after her syncopal episode. She has not had any more episodes overnight. She is currently chest pain-free. Her cardiac enzymes are normal. Her EKG does not show any ischemia. Her echo was reviewed and shows a normal LVEF. Patient will be stable for discharge with appropriate follow-up as an outpatient. She will need a Lexiscan nuclear stress test in the office as she cannot walk on a treadmill due to ankle surgery recently. Addendum by Milind Santos MD on 06/21/2019 18:12 She had no events on telemetry. Her orthostatics were normal. Extracted from:Title: History and Physical Author: Ela Mcgraw MD Date: 06/20/19 58 yoF with history of T2DM, thalassemia , prior TIA, Left CEA, postmenopausal on HRTwho presented to the ED with chest pain and a syncopal episode. Syncope Right sided chest pain - will trend cardiac enzymes x 3 - telemetry - gentle IVF, orthostatic VS - ECHO - cardiology consult T2DM - will resume home regimen + SSI Thalassemia - on folic acid lovenox observation, anticipate 1 midnight 06/21/2019 [facility] Extracted from:Title: Clinical Document Author: Russ Dhillon DO Date: 09/19/15 Progress Daily [facility] Completed: Saturday, SEPTEMBER 19, 2015, 13:24 by Russ Dhillon DO RM: 205 - 1D, SE C2B BEATA BUTT 54y (: 1960) F Attending: Dago Rogers MD Service: Internal Medicine Reason for Admission: NEW ONSET ATAXIA Working DRG: Dysequilibrium Code status: None Specified=FULL CODE Current diet: Isolation: None Documented Allergies: penicillins SUBJECTIVE Patient seen and examined. Events noted overnight. Labs/Images reviewed pt states that headache is better OBJECTIVE Labs (Last four charted values) WBC 6.5 (SEPTEMBER 18) 4.8 (SEPTEMBER 16) Hgb L 9.0 (SEPTEMBER 18) L 10.0 (SEPTEMBER 16) Hct L 28.7 (SEPTEMBER 18) L 32.3 (SEPTEMBER 16) Plt 154 (SEPTEMBER 18) 174 (SEPTEMBER 16) Na 139 (SEPTEMBER 18) 137 (SEPTEMBER 16) K 3.8 (SEPTEMBER 18) 4.0 (SEPTEMBER 16) CO2 27 (SEPTEMBER 18) 28 (SEPTEMBER 16) Cl 103 (SEPTEMBER 18) 101 (SEPTEMBER 16) Cr 0.88 (SEPTEMBER 18) 0.88 (SEPTEMBER 16) BUN 21 (SEPTEMBER 18) 15 (SEPTEMBER 16) Glucose Random H 150 (SEPTEMBER 18) H 127 (SEPTEMBER 16) Ca L 7.9 (SEPTEMBER 18) 8.7 (SEPTEMBER 16) Troponin <0.02 (SEPTEMBER 16) CK MB 1.7 (SEPTEMBER 16) Total CK H 261 (SEPTEMBER 16) ASSESSMENT and EXAM Gen: NAD, Alert, Awake HEENT: NC/AT, PERRLA, oral area clear and moist Neck: No LAD, No JVD, trachea midline Chest: CTAB, no c/w/r CV: RRR, S1, S2 GI: +BS, S, NT, ND, No organomegaly Ext: no c/c/e Neuro: AOx3, no gross deficits noted Skin: No notable rashes PLAN and TREATMENT tegretol level normalized no further w/u per neurology d/w pt to adjust tegeretol level with primary neurologist ok to dc home today per therapy - [facility] headache improved DIAGNOSES and PROBLEMS 1. Carbamazepine toxicity. 2. Drug side effect. 3. Presumed benign positional vertigo. 4. History of hypertension, type 2 diab etes, hyperlipidemia. Ready for Discharge (Yes/No)? [place] still necessary (Yes/No): Line still necessary (Yes/No): 24hr Labs 09/18 0359 Glucose Lvl 150 H BUN 21 Creatinine Lvl 0.88 Sodium Lvl 139 Potassium Lvl 3.8 Chloride Lvl 103 CO2 27 AGAP 12.8 Calcium Lvl 7.9 L eGFR 75 Carbamaz Lvl 8.5 WBC 6.5 RBC 4.55 Hgb 9.0 L Hct 28.7 L MCV 63.1 L MCH 19.9 L MCHC 31.5 L RDW 15.4 H Platelet 154 MPV 9.1 Segs 66.1 Monocytes 5.1 Lymphocytes 27.8 Eosinophils 0.5 Basophils 0.5 Segs-Bands # 4.3 Lymphocytes # 1.8 Monocytes # 0.3 Microcyte 3+ Vitals Tmp(F) Pulse BP RR SpO2 FIO2 09/18 11:40 97.9 --- 176/84 -- 96 --- 09/18 08:28 97.3 58 135/85 1 5 97 --- 09/18 03:22 98.0 72 124/76 1 6 97 --- 09/18 00:07 ---- 73 153/90 - - --- --- 09/17 23:18 98.2 81 178/97 1 6 95 --- 24 Hr Tmax: 98.2F (36.78c) at 09/17 23:1 8 Vital Signs are the last 5 in the past 48 hours. Date Wt(kg) Wt(lb) Ht(cm) Ht(in) Method 09/16 (initial) 90.91 200.00 Estimated 09/16 182.88 72.00 Stated I&O Record In Out Bal 09/18 24hr Tot 0 0 0 09/17 24hr Tot 946 0 946 Medications (25) Active Scheduled Meds (14): 09/19/15 ARIPiprazole (Abilify) 2 mg PO Daily 09/18/15 aspirin 81 mg PO Daily 09/18/15 atorvastatin 20 mg PO Bedtime 09/18/15 clonazePAM (KlonoPIN) 2 mg PO B edtime 09/18/15 cyclobenzaprine (Flexeril) 10 m g PO TID 09/19/15 hydrochlorothiazide (hydrochlor othiazide 25 mg oral tablet) 25 mg PO Daily 09/19/15 lamoTRIgine 100 mg PO Daily 09/19/15 levothyroxine 50 microgram PO Q 630AM 09/19/15 lisinopril (Prinivil) 20 mg PO Daily 09/18/15 metFORMIN 500 mg PO Daily 09/18/15 non-formulary (RN-Bring pt's own Abilify and Topamax sprinkles for labeling) MISC QSHIFT 09/19/15 sertraline (Zoloft) 150 mg PO D aily 09/17/15 sodium chloride (Saline Flush 0 .9%) 10 ml IVP Q12H 09/19/15 topiramate (Topamax) 30 mg PO D aily Unscheduled Meds: None PRN Meds (9): 09/18/15 ALPRAZolam (Xanax) 1 mg PO TID 09/18/15 ALPRAZolam (Xanax) 0.5 mg PO TI D 09/18/15 APAP/butalbital/caffeine 1 tab PO Q4H 09/18/15 acetaminophen-hydrocodone (Norc o 5/325 oral tablet) 1 tab PO Q4H 09/18/15 acetaminophen-hydrocodone (Norc o 10/325 oral tablet) 1 tab PO Q4H 09/18/15 hydrALAZINE 10 mg IV Q6H 09/18/15 ketOROLAC (ketOROLAC 30 mg/mL i njectable solution) 30 mg IV Q6H 09/18/15 ondansetron (Zofran) 4 mg IV Q6 H 09/17/15 sodium chloride (Saline Flush 0 .9%) 10 ml IVP PRN One Time Meds (1): 09/18/15 (Completed) methylPREDNISolone (methylPREDNISolone SODium SUCCinate) 100 mg IV ONCE Continuous Infusions (1): 09/18/15 Sodium Chloride 0.9% IV 1,000 m L (NS 1,000 mL) 1,000 mL 100 ml/hr 09/19/2015 [facility] Extracted from:Title: Clinical Document Author: John Talley MD Date: 04/16/14 PROGRESS NOTE Psychiatry JOHN TALLEY M.D. Patient seen, Events noted. SUBJECTIVE : Feels fair. OBJECTIVE : She is alert, awake, mood better, c/o headaches. no agitation, no s/e of meds. d/w . Allergies: penicillins Labs (Last four charted values) WBC 6.8 (APR 12) 6.9 (APR 11) 7.0 (APR 10) 7.3 (APR 02) Hgb L 10.5 (APR 12) L 9.3 (APR 11) L 8.9 (APR 10) L 10.0 (APR 02) Hct L 33.7 (APR 12) L 30.3 (APR 11) L 28.9 (APR 10) L 32.3 (APR 02) Plt 190 (APR 12) 176 (APR 11) 156 (APR 10) 143 (APR 09) Na 138 (APR 12) 139 (APR 11) 142 (APR 10) 140 (APR 02) K 3.8 (APR 12) 3.5 (APR 11) 3.9 (APR 10) 4.2 (APR 02) CO2 28 (APR 12) 27 (APR 11) 27 (APR 10) 30 (APR 02) Cl 101 (APR 12) 104 (APR 11) 108 (APR 10) 104 (APR 02) Cr 0.7 (APR 12) 0.7 (APR 11) 0.9 (APR 10) 1.3 (APR 09) BUN 7 (APR 12) L 5 (APR 11) L 6 (APR 10) 8 (APR 02) Glucose Random H 138 (APR 12) H 122 (APR 11) H 112 (APR 10) 97 (APR 02) Ca 9.0 (APR 12) 8.7 (APR 11) L 8.0 (APR 10) 9.0 (APR 02) PT 12.9 (APR 02) INR 0.97 (APR 02) PTT 30.8 (APR 02) Scheduled Meds (): 04/09/14 aspirin (aspirin 81 mg tablet, enteric coated) 81 mg PO Daily 04/12/14 atorvastatin 20 mg PO Bedtime 04/14/14 carBAMazepine 600 mg PO QAM 04/14/14 carBAMazepine 400 mg PO QPM 04/13/14 cefTRIAXone + Sodium Chloride 0 .9% IV 100 mL 1 gm IVPB [id number] 200 ml/hr 04/13/14 clonazePAM (KlonoPIN) 1 mg PO B ID 04/09/14 clopidogrel (Plavix) 75 mg PO D aily 04/09/14 docusate (docusate sodium 100 m g oral capsule) 100 mg PO BID 04/10/14 enoxaparin (Lovenox) 40 mg SUB- Q [id number] 04/14/14 gabapentin (Neurontin 100 mg or al [...] PLAN : She is feeling better. COntinue [id number] 600 mg po qam and 400 mg po 5pm.. Continue [id number] mg po bedtime. Conitnue lithium t300 mg po BID Continue klonopin 1 mg po BID Continue xanax 1 mg po q6h PRN for anxiety. Continue trazadone 300 mg po qhs. monitor mood and anxiety symtpoms. supportive psychotherapy to improve coping skills. 04/16/2014 [facility] Extracted from:Title: Clinical Document Author: John Talley MD Date: 02/04/14 PROGRESS NOTE Psychiatry JOHN TALLEY M.D. Patient seen, Events noted. SUBJECTIVE : feels better. OBJECTIVE : She is alert, awake, calm, o x 3, no agitation, no s/e of meds, d/w staff/ Allergies: penicillins Labs (Last four charted values) WBC 7.0 (JAN 30) Hgb L 10.2 (JAN 30) Hct L 32.5 (JAN 30) Plt 184 (JAN 30) Na 139 (JAN 30) K 3.5 (JAN 30) CO2 27 (JAN 30) Cl 107 (JAN 30) Cr 0.7 (JAN 30) BUN 9 (JAN 30) Glucose Random H 109 (JAN 30) Ca L 8.2 (JAN 30) PT 13.9 (JAN 30) INR 1.07 (JAN 30) PTT 26.4 (JAN 30) Troponin <0.02 (JAN 30) CK MB <0.5 (JAN 30) Total CK 35 (JAN 30) MENTAL STATUS EXAM: She is alert, awake, mood fair, no agitation. ASSESMENT : 1. Bipolar disorder type 1, depressive mood. 2. Attention deficit hyperactivity diso rder by history. 3. Anxiety disorder. PLAN : Continue clonazepam 1 mg po BID. Continue lithium 300 mg po BID Continue trazadone 150 mg po qhs Continue to monitor mood and anxiety symptoms. ok to d/c, outpatient follow up with her psychiatrist Dr mitchell. d/w . 02/04/2014 [facility] Plan of Care No Data Provided for This Section Social History Social History Date Source Social History TypeResponse Alcohol Never Employment/School Highest education level: Some college.1 Substance Abuse Use: None. Smoking Status Current every day smoker; Type: Cigarettes; Exposure to Tobacco Smoke None; Cigarette Smoking Last 365 Days Yes; Reg Smoking Cessation Counseling No; Tobacco use per day: 10; Number of years: 38; 2 entered on: 06/20/19 1[id number] 04/07/2014 01/31/2014 [facility] Family History No Data Provided for This Section Advance Directives No Data Provided for This Section Functional Status No Data Provided for This Section
--- OUTSIDE RECORDS SUMMARY | 2019-10-10 14:55 | XMS REPORT | Summary of Care ---
Author Author [facility] Organization [facility] Address Unknown Phone Unavailable Encounter KAMAR Tsang(ADIEL) [id number] Date(s): 06/20/19 - 06/21/19 [facility] [id number] [place] [address]- Discharge Disposition: Home or Self Care Attending Physician: Franklyn Cash MD Admitting Physician: Franklyn Cash MD Vital Signs 1 2 3 Most recent to oldest [Reference Range]: 182.88 cm (06/20/19 6:44 PM) 182.88 cm (06/20/19 2:38 PM) Height 97.8 DegF (06/21/19 11:05 AM) 98.0 DegF (06/21/19 7:02 AM) 97.8 DegF (06/21/19 3:28 AM) Temperature Oral [96.4-99.1 DegF] 108/69 mmHg (06/21/19 11:05 AM) 108/67 mmHg (06/21/19 7:02 AM) 100/60 mmHg (06/21/19 3:28 AM) Blood Pressure [90-140/60-90 mmHg] 16 BRMIN (06/21/19 11:05 AM) 18 BRMIN (06/21/19 7:02 AM) 16 BRMIN (06/21/19 3:28 AM) Respiratory Rate [14-20 BRMIN] 59 bpm *LOW* (06/21/19 11:05 AM) 58 bpm *LOW* (06/21/19 7:02 AM) 56 bpm *LOW* (06/21/19 3:28 AM) Peripheral Pulse Rate [60-100 bpm] 95.568 kg (06/21/19 9:00 AM) 95.455 kg (06/20/19 6:44 PM) 95.455 kg (06/20/19 2:38 PM) Weight 28.54 m2 (06/20/19 6:44 PM) 28.54 m2 (06/20/19 5:37 PM) 28.54 m2 (06/20/19 2:38 PM) Body Mass Index Problem List Condition Effective Dates Status Health Status Informan t ADD (attention Active deficit disorder)(Confirmed) Anxiety(Confirmed) Active Back pain(Confirmed) Active Bulging Resolved disc(Confirmed) COPD(Confirmed) Active Dizziness(Confirmed) [...] PO, Drug form: TAB, Q4H, Dosing Weight 95.455, kg, PRN Crista n 1-3/Temp > 100.4 F, Start date: 06/20/19 17:37:00 [employer], Duration: 30 day, Stop date: 07/20/19 17:36:00 CDT, 0 Notes: Do not exceed 4 gm/day. (Same as: Tylenol) Start Date: 06/20/19 Stop Date: 06/21/19 Status: Discontinued APAP/butalbital/caffeine 1 tab, Route: PO, Drug Form: TAB, Q4H, PRN Headache 1-5, Start date: 06/21/19 11 :23:00 [employer], Duration: 30 day, Stop date: 07/21/19 11:22:00 CDT, 0 Notes: (lccbhvymkhhqq-sljaifzoiu-npcybdpy 325-50-40mg) Do not exceed 4 gm/day o f acetaminophen. (Same as: Esgic, Fioricet) Start Date: 06/21/19 Stop Date: 06/21/19 Status: Discontinued aspirin 81 mg, 1 tab, Route: PO, Drug form: ECTAB, Daily, Dosing Weight 95.455, kg, Star t date: 06/21/19 9:00:00 [employer], Duration: 30 day, Stop date: 07/20/19 9:00:00 CDT, 0 Notes: Do not crush or chew.(Same As: Ecotrin) Start Date: 06/21/19 Stop Date: 06/21/19 Status: Discontinued aspirin 325 mg, 1 tab, Route: PO, Drug form: TAB, ONCE, Dosing Weight 95.455, kg, Priori ty: STAT, Start date: 06/20/19 15:04:00 [employer], Stop date: 06/20/19 15:04:00 [employer]OM[employer]ER, 0 Notes: Take with food. Start Date: 06/20/19 Stop Date: 06/20/19 Status: Completed azithromycin + Sodium Chloride 0.9% IV 250 mL 500 mg, Route: IVPB, ONCE, Dosing Weight 95.455, kg, Priority: STAT, Start date: 06/20/19 17:19:00 [employer], Stop date: 06/20/19 17:19:00 [employer], ABX Indication: Pneumo arleen, 0 Notes: (Same As: Zithromax IV) Start Date: 06/20/19 Stop Date: 06/20/19 Status: Completed azithromycin + Sodium Chloride 0.9% IV 250 mL 500 mg, Route: IVPB, [id number], Dosing Weight 95.455, kg, Start date: 06/21/19 18: 00:00 [employer]OM[employer], Duration: 2 day, Stop date: 06/22/19 18:00:00 [employer]OM[employer], ABX Indication: Pn eumonia, 0 Notes: (Same As: Zithromax IV) Start Date: 06/21/19 Stop Date: 06/21/19 Status: Canceled busPIRone 7.5 mg, 1.5 tab, Route: PO, Drug form: TAB, BID, Dosing Weight 95.455, kg, Start date: 06/21/19 9:00:00 [employer]OM[employer], Duration: 30 day, Stop date: 07/20/19 21:00:00 CDT, 0 Notes: (Same As: BuSpar) Start Date: 06/21/19 Stop Date: 06/21/19 Status: Discontinued busPIRone 7.5 mg oral tablet 7.5 mg = 1 tab, PO, BID, 0 Refill(s) Start Date: 06/20/19 Status: Ordered cefTRIAXone + sterile water 10 mL 1 gm, Route: IVP, ONCE, Dosing Weight 95.455, kg, Priority: STAT, Start date: 17:19:00 [employer], Stop date: 06/20/19 17:19:00 [employer]OM[employer]ER [employer]SEMBLER, ABX Indication: Pneumonia , 0 Notes: (Same As: Rocephin).Use with 100 mL NS and infuse over 30 min MEDICA TION WASTE Product Size: 1000 mgProduct Wasted: ___ mg Start Date: 06/20/19 Stop Date: 06/20/19 Status: Completed cefTRIAXone + sterile water 10 mL 1 gm, Route: IVP, [id number], Dosing Weight 95.455, kg, Start date: 06/21/19 18:00: 00 [employer]OM[employer]ER [employer]SEM[employer]ER, Duration: 7 day, Stop date: 06/27/19 18:00:00 CHRONOM[employer]ER [employer]SEM[employer]ER, ABX Indication: Pneum onia, 0 Notes: (Same As: Rocephin).Use with 100 mL NS and infuse over 30 min MEDICA TION WASTE Product Size: 1000 mgProduct Wasted: ___ mg Start Date: 06/21/19 Stop Date: 06/21/19 Status: Canceled Dextrose 50% Syringe (D50W) 25 mL, Route: IVP, Dosing Weight 95.455, kg, PRN, PRN Blood Glucose Results, Sta rt date: 06/20/19 17:37:00 [employer]OM[employer], Duration: 30 day, Stop date: 07/20/19 18:36:00 C DT Start Date: 06/20/19 Stop Date: 06/20/19 Status: Deleted Dextrose 50% Syringe (D50W) 50 mL, Route: IVP, Dosing Weight 95.455, kg, PRN, PRN Blood Glucose Results, Sta rt date: 06/20/19 17:37:00 CH[employer]OM[employer]ER [employer]ER, Duration: 30 day, Stop date: 07/20/19 18:36:00 C DT Start Date: 06/20/19 Stop Date: 06/20/19 Status: Deleted Dextrose 50% Syringe (D50W) 12.5 gm, 25 mL, Route: IVP, Drug Form: INJ, Dosing Weight 95.455, kg, PRN, PRN B lood Glucose Results, Start date: 06/20/19 17:38:00 CH[employer]OM[employer]ER [employer]ER, Duration: 30 day, Stop date: 07/20/19 18:37:00 CDT, 0 Start Date: 06/20/19 Stop Date: 06/21/19 Status: Discontinued Dextrose 50% Syringe (D50W) 25 gm, 50 mL, Route: IVP, Drug Form: INJ, Dosing Weight 95.455, kg, PRN, PRN Blo od Glucose Results, Start date: 06/20/19 17:38:00 [employer]OM[employer]ER [employer]ER, Duration: 30 day, Stop da te: 07/20/19 18:37:00 CDT, 0 Start Date: 06/20/19 Stop Date: 06/21/19 Status: Discontinued docusate 100 mg, 1 cap, Route: PO, Drug form: CAP, BID, Dosing Weight 95.455, kg, PRN as needed for constipation, Start date: 06/20/19 17:37:00 CH[employer]OM[employer]ER [employer]SEM[employer]ER, Duration: 30 day, St op date: 07/20/19 17:36:00 CDT, 0 Notes: (Same as: Colace) (Do Not Crush) Start Date: 06/20/19 Stop Date: 06/21/19 Status: Discontinued Fiorinal oral capsule 1 cap, Route: PO, Drug Form: CAP, Dosing Weight 95.455, kg, Q4H, PRN Headache 1- 5, Start date: 06/21/19 11:11:00 [employer], Duration: 30 day, Stop date: 07/21/19 11:1 0:00 CDT Start Date: 06/21/19 Stop Date: 06/21/19 Status: Deleted gabapentin 600 mg oral tablet 600 mg = 1 tab, PO, TID, # 270 tab, 0 Refill(s) Start Date: 06/20/19 Status: Ordered gabapentin 600 mg oral tablet 600 mg, 2 cap, Route: PO, Drug form: CAP, TID, Dosing Weight 95.455, kg, Start d ate: 06/21/19 9:00:00 [employer]OM[employer]ER, Duration: 30 day, Stop date: 07/20/19 17:00:00 CDT, 0 Notes: (Same as: Neurontin) Start Date: 06/21/19 Stop Date: 06/21/19 Status: Discontinued glucagon 1 mg, Route: IM, PRN, Dosing Weight 95.455, kg, PRN Blood Glucose Results, Start date: 06/20/19 17:37:00 CH[employer]OM[employer]ER [employer]SEM[employer]ER, Duration: 30 day, Stop date: 07/20/19 18:36:00 CDT Start Date: 06/20/19 Stop Date: 06/20/19 Status: Deleted glucagon 1 mg, Route: IM, Drug form: PDR/INJ, PRN, Dosing Weight 95.455, kg, PRN Blood Gl ucose Results, Start date: 06/20/19 17:38:00 CH[employer]OM[employer]ER [employer]SEMBLER, Duration: 30 day, Stop date: 0 07/20/19 18:37:00 CDT, 0 Start Date: 06/20/19 Stop Date: 06/21/19 Status: Discontinued insulin glargine 15 unit, 0.15 mL, Route: SUB-Q, Drug form: SOLN, Daily, Start date: 06/21/19 9:0 0:00 [employer]OM[employer]ER [employer]SEM[employer]ER, Duration: 30 day, Stop date: 07/20/19 9:00:00 CDT, 0 Notes: (Same as: Lantus)Do not hold insulin without contacting prescriberWASTE: F/P - Black; E - Municipal Trash Bin"single patient use only"Stable for 28 days at room temperature Expires in days from Date Start Date: 06/21/19 Stop Date: 06/21/19 Status: Discontinued insulin lispro 1 unit, 0.01 mL, Route: SUB-Q, Drug form: SOLN, TID-Before Meals, Dosing Weight 95.455, kg, PRN Blood Glucose Results, Start date: 06/20/19 17:38:00 CHRONOMETER [employer]SEMBLER, Durati on: 30 day, Stop date: 07/20/19 17:37:00 CDT, 0 Notes: (Same as: Humalog) Roll in palms of hands gently; Do not shake vigorously . WASTE: F/P - Black; E - Municipal Trash BinStable for 28 days at room tempera ture.Expires in days from Date Start Date: 06/20/19 Stop Date: 06/21/19 Status: Discontinued insulin lispro 2 unit, 0.02 mL, Route: SUB-Q, Drug form: SOLN, TID-Before Meals, Dosing Weight 95.455, kg, PRN Blood Glucose Results, Start date: 06/20/19 17:38:00 CHRONOMETER ASSEMBLER, Durati on: 30 day, Stop date: 07/20/19 17:37:00 CDT, 0 Notes: (Same as: Humalog) Roll in palms of hands gently; Do not shake vigorously . WASTE: F/P - Black; E - Municipal Trash BinStable for 28 days at [facility].Expires in days from Date Start Date: 06/20/19 Stop Date: 06/21/19 Status: Discontinued insulin lispro 3 unit, 0.03 mL, Route: SUB-Q, Drug form: SOLN, TID-Before Meals, Dosing Weight 95.455, kg, PRN Blood Glucose Results, Start date: 06/20/19 17:38:00 CHRONOMETER ASSEMBLER, Durati on: 30 day, Stop date: 07/20/19 17:37:00 CDT, 0 Notes: (Same as: Humalog) Roll in palms of hands gently; Do not shake vigorously . WASTE: F/P - Black; E - Municipal Trash BinStable for 28 days at [facility].Expires in days from Date Start Date: 06/20/19 Stop Date: 06/21/19 Status: Discontinued insulin lispro 4 unit, 0.04 mL, Route: SUB-Q, Drug form: SOLN, TID-Before Meals, Dosing Weight 95.455, kg, PRN Blood Glucose Results, Start date: 06/20/19 17:38:00 CHRONOMETER ASSEMBLER, Durati on: 30 day, Stop date: 07/20/19 17:37:00 CDT, 0 Notes: (Same as: Humalog) Roll in palms of hands gently; Do not shake vigorously . WASTE: F/P - Black; E - Municipal Trash BinStable for 28 days at room [facility].Expires in days from Date Start Date: 06/20/19 Stop Date: 06/21/19 Status: Discontinued insulin lispro 5 unit, 0.05 mL, Route: SUB-Q, Drug form: SOLN, TID-Before Meals, Dosing Weight 95.455, kg, PRN Blood Glucose Results, Start date: 06/20/19 17:38:00 CHRONOMETER ASSEMBLER, Durati on: 30 day, Stop date: 07/20/19 17:37:00 CDT, 0 Notes: (Same as: Humalog) Roll in palms of hands gently; Do not shake vigorously . WASTE: F/P - Black; E - Municipal Trash BinStable for 28 days at room [facility].Expires in days from Date Start Date: 06/20/19 Stop Date: 06/21/19 Status: Discontinued insulin lispro 1 unit, 0.01 mL, Route: SUB-Q, Drug form: SOLN, Bedtime, Dosing Weight 95.455, k g, PRN Blood Glucose Results, Start date: 06/20/19 17:38:00 CHRONOMETER ASSEMBLER, Duration: 30 da y, Stop date: 07/20/19 17:37:00 CDT, 0 Notes: (Same as: Humalog) Roll in palms of hands gently; Do not shake vigorously . WASTE: F/P - Black; E - Municipal Trash BinStable for 28 days at room [facility].Expires in days from Date Start Date: 06/20/19 Stop Date: 06/21/19 Status: Discontinued insulin lispro 2 unit, 0.02 mL, Route: SUB-Q, Drug form: SOLN, Bedtime, Dosing Weight 95.455, k g, PRN Blood Glucose Results, Start date: 06/20/19 17:38:00 CHRONOMETER ASSEMBLER, Duration: 30 da y, Stop date: 07/20/19 17:37:00 CDT, 0 Notes: (Same as: Humalog) Roll in palms of hands gently; Do not shake vigorously . WASTE: F/P - Black; E - Municipal Trash BinStable for 28 days at room [facility].Expires in days from Date Start Date: 06/20/19 Stop Date: 06/21/19 Status: Discontinued insulin lispro 3 unit, 0.03 mL, Route: SUB-Q, Drug form: SOLN, Bedtime, Dosing Weight 95.455, k g, PRN Blood Glucose Results, Start date: 06/20/19 17:38:00 CHRONOMETER ASSEMBLER, Duration: 30 da y, Stop date: 07/20/19 17:37:00 CDT, 0 Notes: (Same as: Humalog) Roll in palms of hands gently; Do not shake vigorously . WASTE: F/P - Black; E - Municipal Trash BinStable for 28 days at [facility].Expires in days from Date Start Date: 06/20/19 Stop Date: 06/21/19 Status: Discontinued insulin lispro 4 unit, 0.04 mL, Route: SUB-Q, Drug form: SOLN, Bedtime, Dosing Weight 95.455, k g, PRN Blood Glucose Results, Start date: 06/20/19 17:38:00 CHRONOMETER ASSEMBLER, Duration: 30 da y, Stop date: 07/20/19 17:37:00 CDT, 0 Notes: (Same as: Humalog) Roll in palms of hands gently; Do not shake vigorously . WASTE: F/P - Black; E - Municipal Trash BinStable for 28 days at [facility].Expires in days from Date Start Date: 06/20/19 Stop Date: 06/21/19 Status: Discontinued Lactated Ringers IV 1,000 mL 1,000 mL, Rate: 75 ml/hr, Infuse over: 13.3 hr, Route: IV, Dosing Weight 95.455 kg, Total Volume: 1,000, Start date: 06/20/19 17:37:00 CHRONOMETER ASSEMBLER, Duration: 30 day, St op date: 07/20/19 17:36:00 CDT, 2.22, m2, 0 Start Date: 06/20/19 Stop Date: 06/21/19 Status: Discontinued Levaquin 750 mg oral tablet 750 mg = 1 tab, PO, Daily, X 5 day, # 5 tab, 0 Refill(s), Pharmacy: [facility]/pharmacy #[id number] Start Date: 06/21/19 Stop Date: 06/26/19 Status: Ordered Lovenox 40 mg, 0.4 mL, Route: SUB-Q, Drug form: INJ, [id number], Dosing Weight 95.455, kg, Start date: 06/20/19 18:00:00 CHRONOMETER ASSEMBLER, Duration: 30 day, Stop date: 07/19/19 18:00: 00 CDT, 0 Notes: (Same as: Lovenox) Start Date: 06/20/19 Stop Date: 06/21/19 Status: Discontinued melatonin 3 mg, 1 tab, Route: PO, Drug form: TAB, Bedtime, Dosing Weight 95.455, kg, PRN I nsomnia, Start date: 06/20/19 17:37:00 CHRONOMETER ASSEMBLER, Duration: 30 day, Stop date: 0 17:36:00 CDT, 0 Notes: (Same as: Melatonin) Start Date: 06/20/19 Stop Date: 06/21/19 Status: Discontinued metFORMIN 1,000 mg, 2 tab, Route: PO, Drug form: TAB, BID, Dosing Weight 95.455, kg, Start date: 06/21/19 9:00:00 CHRONOMETER ASSEMBLER, Duration: 30 day, Stop date: 07/20/19 17:00:00 CDT, 0 Notes: (Same as: Glucophage) Take with meal Start Date: 06/21/19 Stop Date: 06/21/19 Status: Discontinued non-formulary See Instructions, Refill(s) 0 Start Date: 06/20/19 Status: Ordered ondansetron 4 mg, 2 mL, Route: IVP, Drug form: INJ, Q8H, Dosing Weight 95.455, kg, PRN Nause a & Vomiting, Start date: 06/20/19 17:37:00 CHRONOMETER ASSEMBLER, Duration: 30 day, Stop date: 07/20/19 17:36:00 CDT, 0 Notes: (Same as: Zofran) MEDICATION WASTE Product Size: 4 mgProduct Was david: ___ mg Start Date: 06/20/19 Stop Date: 06/21/19 Status: Discontinued RN: Pls bring pt own trulicity to pharmacy for label. RN: Pls bring pt own trulicity to pharmacy for label., Reminder., Drug form: MIS C, Route: MISC, QSHIFT, 06/21/19 0:00:00 CHRONOMETER ASSEMBLER, Duration: 30 day, Stop date: 07/19 16:00:00 CDT, 0 Start Date: 06/21/19 Stop Date: 06/21/19 Status: Discontinued Saline Flush 0.9% 10 ml, Route: IVP, Drug Form: INJ, Dosing Weight 95.455, kg, PRN, PRN Line Flush , Start date: 06/20/19 17:37:00 CHRONOMETER ASSEMBLER, Duration: 30 day, Stop date: 07/20/19 18:36 :00 CDT Start Date: 06/20/19 Stop Date: 06/20/19 Status: Deleted Saline Flush 0.9% 10 ml, Route: IVP, Drug Form: INJ, Dosing Weight 95.455, kg, Q12H, Start date: 0 06/20/19 21:00:00 CHRONOMETER ASSEMBLER, Duration: 30 day, Stop date: 07/20/19 9:00:00 CDT, 0 Notes: (Same as: BD Posiflush) Start Date: 06/20/19 Stop Date: 06/21/19 Status: Discontinued Saline Flush 0.9% 10 ml, Route: IVP, Drug Form: INJ, Dosing Weight 95.455, kg, PRN, PRN Line Flush , Start date: 06/20/19 17:37:00 CHRONOMETER ASSEMBLER, Duration: 30 day, Stop date: 07/20/19 18:36 :00 CDT, 0 Notes: (Same as: BD Posiflush) Start Date: 06/20/19 Stop Date: 06/21/19 Status: Discontinued SEROquel 200 mg, 2 tab, Route: PO, Drug form: TAB, Bedtime, Dosing Weight 95.455, kg, Sta rt date: 06/20/19 22:20:00 CHRONOMETER ASSEMBLER, Duration: 30 day, Stop date: 07/20/19 21:00:00 C DT, 0 Notes: (Same as: SEROquel) Start Date: 06/20/19 Stop Date: 06/21/19 Status: Discontinued SEROquel 200 mg oral tablet 200 mg = 1 tab, PO, Bedtime, 0 Refill(s) Start Date: 06/20/19 Status: Ordered trazodone See Instructions, PO, 0 Refill(s) Start Date: 06/20/19 Status: Ordered trazodone 50 mg, 1 tab, Route: PO, Drug form: TAB, Bedtime, Dosing Weight 95.455, kg, Star t date: 06/20/19 22:20:00 CHRONOMETER ASSEMBLER, Duration: 30 day, Stop date: 07/20/19 21:00:00 CD T, 0 Notes: (Same As: Desyrel) Start Date: 06/20/19 Stop Date: 06/21/19 Status: Discontinued Tresiba 15 unit, SUB-Q, Daily, 0 Refill(s) Start Date: 06/20/19 Status: Ordered Tresiba Tresiba, 15 unit, Route: SUB-Q, Daily, 06/21/19 9:00:00 CHRONOMETER ASSEMBLER, Duration: 30 day, S top date: 07/20/19 9:00:00 CDT Start Date: 06/21/19 Stop Date: 06/20/19 Status: Deleted Trulicity Pen 1.5 mg/0.5 mL subcutaneous solution 1.5 mg, SUB-Q, QThu, 0 Refill(s) Start Date: 06/20/19 Status: Ordered Trulicity Pen 1.5 mg/0.5 mL subcutaneous solution Trulicity Pen 1.5 mg/0.5 mL subcutaneous solution, 1.5 mg, Route: SUB-Q, QThu, 0 06/21/19 9:00:00 CHRONOMETER ASSEMBLER, Duration: 30 day, Stop date: 07/19/19 9:00:00 CDT Start Date: 06/21/19 Stop Date: 06/21/19 Status: Discontinued Tums 500 mg, 1 tab, Route: CHEW, Drug form: CHEWTAB, TID, Dosing Weight 95.455, kg, P RN Indigestion, Start date: 06/20/19 23:32:00 CHRONOMETER ASSEMBLER, Stop date: 07/19/19 23:31:00 CDT, 0 Notes: (Same As: Tums)Calcium Carbonate 500 mg = 200 mg elemental calcium Dose = mg calcium carbonate ( mg elemental calcium) Start Date: 06/20/19 Stop Date: 06/21/19 Status: Discontinued Zoloft 50 mg, 1 tab, Route: PO, Drug form: TAB, Bedtime, Dosing Weight 95.455, kg, Star t date: 06/21/19 21:00:00 CHRONOMETER ASSEMBLER, Duration: 30 day, Stop date: 07/20/19 21:00:00 CD T, 0 Notes: (Same as: Zoloft) Start Date: 06/21/19 Stop Date: 06/21/19 Status: Canceled Results 1 2 3 Most recent to oldest [Reference Range]: 3.5 K/CMM (06/20/19 3:36 PM) Neutrophils # [1.5-8.1 K/CMM] 1.8 K/CMM (06/20/19 3:36 PM) Lymphocytes # [1.0-5.5 K/CMM] 0.4 K/CMM (06/20/19 3:36 PM) Monocytes # [0.0-0.8 K/CMM] 0.2 K/CMM (06/20/19 3:36 PM) Eosinophils # [0.0-0.5 K/CMM] Normal (06/20/19 3:36 PM) Plt Morph [Normal] 66 mL/min/1.73m2 1 *NA* (06/20/19 3:36 PM) eGFR 10.8 mEq/L (06/20/19 3:36 PM) AGAP [10.0-20.0 mEq/L] 0.8 % (06/20/19 3:36 PM) Basophils [0.0-1.0 %] 17 mg/dL (06/20/19 3:36 PM) BUN [7-22 mg/dL] 9.1 mg/dL (06/20/19 3:36 PM) Calcium Lvl [8.5-10.5 mg/dL] 106 mEq/L (06/20/19 3:36 PM) Chloride Lvl [95-109 mEq/L] 27 mEq/L (06/20/19 3:36 PM) CO2 [24-32 mEq/L] 0.96 mg/dL (06/20/19 3:36 PM) Creatinine Lvl [0.50-1.40 mg/dL] 2.9 % (06/20/19 3:36 PM) Eosinophils [0.0-4.0 %] 126 mg/dL *HI* (06/20/19 3:36 PM) Glucose Lvl [70-99 mg/dL] 37.7 % (06/20/19 3:36 PM) Hct [36.0-48.0 %] 11.8 g/dL *LOW* (06/20/19 3:36 PM) Hgb [12.0-16.0 g/dL] 1+ (06/20/19 3:36 PM) Hypochrom [None Seen] 0.98 (06/20/19 3:36 PM) INR [0.85-1.17] 3.8 mEq/L (06/20/19 3:36 PM) Potassium Lvl [3.5-5.1 mEq/L] 1.8 mMol/L (06/20/19 6:49 PM) Lactic Acid Lvl [0.5-2.2 mMol/L] 30.4 % (06/20/19 3:36 PM) Lymphocytes [20.0-40.0 %] 20.1 pg *LOW* (06/20/19 3:36 PM) MCH [27.0-31.0 pg] 31.2 g/dL *LOW* (06/20/19 3:36 PM) MCHC [32.0-36.0 g/dL] 64.4 fL *LOW* (06/20/19 3:36 PM) MCV [80.0-98.0 fL] 3+ *NA* (06/20/19 3:36 PM) Microcyte [None Seen] 6.6 % (06/20/19 3:36 PM) Monocytes [2.0-12.0 %] 9.0 fL (06/20/19 3:36 PM) MPV [7.4-10.4 fL] 140 mEq/L (06/20/19 3:36 PM) Sodium Lvl [135-145 mEq/L] 181 K/CMM (06/20/19 3:36 PM) Platelet [133-450 K/CMM] 59.3 % (06/20/19 3:36 PM) Segs [45.0-75.0 %] 13.0 seconds (06/20/19 3:36 PM) PT [12.0-14.7 seconds] 26.5 seconds (06/20/19 3:36 PM) PTT [22.9-35.8 seconds] 5.86 M/CMM *HI* (06/20/19 3:36 PM) RBC [4.20-5.40 M/CMM] See Note (06/20/19 3:36 PM) RBC Morph [Normal] 15.3 % *HI* (06/20/19 3:36 PM) RDW [11.5-14.5 %] <0.02 ng/mL (06/20/19 11:15 PM) <0.02 ng/mL (06/20/19 7:33 PM) <0.02 ng/mL (06/20/19 3:36 PM) Troponin-I [0.00-0.40 ng/mL] 6.0 K/CMM (06/20/19 3:36 PM) WBC [3.7-10.4 K/CMM] 1Result Comment: The eGFR is calculated using [...] be mul tiplied by the estimated BMI. Immunizations No data available for this section Procedures Procedure Date Related Diagnosis Body Site Status Carotid endarterectomy1 04/09/14 Completed Hysterectomy 1997 Completed Discectomy 1996 Completed Cholecystectomy 1994 Completed Decompression of ulnar nerve Completed 1left Social History Social History Type Response Alcohol Never Employment/School Highest education level: [employer].1 Substance Abuse Use: None. Smoking Status Current every day smoker; T ype: Cigarettes; Exposure to Tobacco Smoke None; Cigarette Smoking Last 365 Days Yes; Re g Smoking Cessation Counseling No; Tobacco use per day: 10; Number of year s: 38; 2 entered on: 06/20/19 1Associate degree 2quit 04/07/2014 Assessment and Plan Extracted from: Title: Clinical Document Author: Saira Delgado NP Date: [facility] Consultation / History & Physical Chief Complaint: Syncope and chest pain [...] bedtime, metformin 1000 mg twice a day. Shake Out Worker: Dr. Bain Past Medical History: Seizure TMJ (dislocation of temporomandibular joint) Bulging disc Migraine TIA (transient ischemic attack) Past Surgical History: Carotid endarterectomy: 04/09/14 Hysterectomy: 1998 Discectomy: 1996 Cholecystectomy: 1994 Decompression of ulnar [...] Back pain - no. Myalgias - no VitalsTmp(F)[id number] 06/21 07:[id number]--- 06/21 03:[id number]--- 06/20 23:[id number]--- 06/20 20:18 1896--- 06/20 19:51-------132/85-------- 24 Hr Tmax: 98.2F (36.78c) at 06/20 14:3 8Vital Signs are the last 5 in the past 48 hours. Physical Exam: General: Awake and alert, Oriented Neck: Supple, no JVD or Bruits Cardiovascular: Regular, normal S1 S2, No significant murmurs. Lungs: Clear bilaterally, no rales or wheezing Abdomen: Soft, NT/ND +BS Extremities: No edema, + peripheral pulses Neuro: No focal neurological abnormalities Labs: Labs (Last four charted values) WBC 6.0(JUN 20) Hgb L 11.8(JUN 20) Hct 37.7(JUN 20) Plt 181(JUN 20) Na 140(JUN 20) K 3.8(JUN 20) CO2 27(JUN 20) Cl 106(JUN 20) Cr 0.96(JUN 20) BUN 17(JUN 20) Glucose Random H 126(JUN 20) Ca 9.1(JUN 20) PT 13.0(JUN 20) INR 0.98(JUN 20) PTT 26.5(JUN 20) Troponin <0.02(JUN 20)<0.02(JUN 20)<0.02(JUN 20) Scheduled Medications: Scheduled Meds (14): 06/20/19 QUEtiapine (SEROquel) 200 mg PO Bedtime 06/21/19 aspirin 81 mg PO Daily 06/21/19 azithromycin + Sodium Chloride 0.9% IV 250 mL 500 mg IVPB [id number] 166.67 ml/hr 06/21/19 busPIRone 7.5 mg PO BID 06/21/19 cefTRIAXone + sterile water 10 mL 1 gm IVP [id number] 120 ml/hr 06/20/19 enoxaparin (Lovenox) 40 mg SUB- Q [id number] 06/21/19 gabapentin (gabapentin 600 mg o ral [...] Atypical chest pain Pneumonia Left CEA in 2014 Previous TIA Seizures Diabetes type 2 Thalassemia [...] Santos. Addendum: Patient seen and examined with [facility]. Agree with YUSRA Delgado as noted above with any changes/additions [...] treadmill due to ankle surgery recently. Addendum She had no events on teleme try. Her orthostatics were normal. by Milind Santos MD on 06/21/2019 18:12 Extracted from: Title: History and Physical Author: Ela Mcgraw MD Date: 06/20/19 58 yoF with history of T2DM, thalassem ia, prior TIA, Left CEA, postmenopausal on HRTwho [...]
--- OUTSIDE RECORDS SUMMARY | 2019-10-10 14:55 | XMS REPORT | Summary of Care ---
Author Author [facility] Organization [facility] Address Unknown Phone Unavailable Encounter KAMAR Tsang(ADIEL) [id number] Date(s): 03/01/15 - 03/01/15 [facility] [address] [place] [address]- Discharge Disposition: Elopement Attending Physician: Allen Alexis MD Vital Signs 1 2 3 Most recent to oldest [Reference Range]: 182.88 cm (03/01/15 12:15 AM) Height 98.0 DegF (03/01/15 12:15 AM) Temperature Oral [96.4-99.1 DegF] 164/90 mmHg *HI* (03/01/15 1:11 AM) 157/88 mmHg *HI* (03/01/15 12:15 AM) Blood Pressure [90-140/60-90 mmHg] 20 BRMIN (03/01/15 1:43 AM) 19 BRMIN (03/01/15 1:11 AM) 20 BRMIN (03/01/15 12:15 AM) Respiratory Rate [14-20 BRMIN] 90 bpm (03/01/15 12:15 AM) Peripheral Pulse Rate [60-100 bpm] 111.364 kg (03/01/15 12:15 AM) Weight 33.3 m2 (03/01/15 12:15 AM) Body Mass Index Problem List Condition Effective [...] Substance Reaction Severity Status penicillins Active Medications Ativan 2 mg, Route: IVP, Drug form: INJ, ONCE, Dosing Weight 111.364, kg, Priority: STA T, Start date: 03/01/15 0:44:00, Stop date: 03/01/15 0:44:00 Start Date: 03/01/15 Stop Date: 03/01/15 Status: Completed Saline Flush 0.9% 10 mL, Route: IVP, Drug Form: INJ, Dosing Weight 111.364, kg, PRN, PRN Line Flus h, Start date: 03/01/15 0:25:00, Duration: 30 day, Stop date: 03/30/15 23:24:00 Notes: (Same as: BD Posiflush) Start Date: 03/01/15 Stop Date: 03/01/15 Status: Discontinued Sodium Chloride 0.9% (Bolus) IV 1,000 mL, 1,000 ml/hr, Infuse Over: 1 hr, Route: IV, 1,000, Drug form: INJ, ONCE , Priority: STAT, Dosing Weight 111.364 kg, Start date: 03/01/15 0:25:00, Durati on: 1 doses or times, Stop date: 03/01/15 0:25:00 Start Date: 03/01/15 Stop Date: 03/01/15 Status: Ordered Results ELECTROLYTES Most recent to 1 oldest [Reference Range]: Sodium Lvl [135-145 141 mEq/L mEq/L] (03/01/15 5:00 AM) Potassium Lvl 3.7 mEq/L [3.5-5.1 mEq/L] (03/01/15 5:00 AM) Chloride Lvl [95-109 110 mEq/L mEq/L] *HI* (03/01/15 5:00 AM) CO2 [24-32 mEq/L] 21 mEq/L *LOW* (03/01/15 5:00 AM) AGAP [10.0-20.0 13.7 mEq/L mEq/L] (03/01/15 5:00 AM) CHEM PANEL Most recent to 1 oldest [Reference Range]: Creatinine Lvl 0.8 mg/dL [0.5-1.4 mg/dL] (03/01/15 5:00 AM) eGFR 84 mL/min/1.73m2 1 *NA* (03/01/15:00 AM) BUN [7-22 mg/dL] 10 mg/dL (03/01/15:00 AM) B/C Ratio [6-25] 12 (03/01/15:00 AM) Glucose Lvl [70-99 118 mg/dL mg/dL] *HI* (03/01/15:00 AM) Total Protein 7.1 g/dL [6.4-8.4 g/dL] (03/01/15:00 AM) Albumin Lvl [3.5-5.0 3.7 g/dL g/dL] (03/01/15:00 AM) Globulin [2.0-4.0 3.4 g/dL g/dL] (03/01/15 5:00 AM) A/G Ratio [0.7-1.6] 1.1 (03/01/15:00 AM) Calcium Lvl 8.4 mg/dL [8.5-10.5 mg/dL] *LOW* (03/01/15 5:00 AM) ALT [0-65 unit/L] 39 unit/L (03/01/15 5:00 AM) AST [0-37 unit/L] 34 unit/L (03/01/15:00 AM) Alk Phos [39-136 43 unit/L unit/L] (03/01/15 5:00 AM) Bili Total [0.2-1.3 0.5 mg/dL mg/dL] (03/01/15 5:00 AM) 1Result Comment: The eGFR is calculated using [...] be mul tiplied by the estimated BMI. TOXICOLOGY Most recent to 1 oldest [Reference Range]: Acetaminoph Lvl <2 [10-20] (03/01/15 5:00 AM) Etoh (%) .047 % *NA* (03/01/15 5:00 AM) Ethanol Lvl 47 mg/dL *NA* (03/01/15 5:00 AM) METAL Most recent to 1 oldest [Reference Range]: [place] Lvl <0.20 mEq/L [0.50-1.50 mEq/L] *LOW* (03/01/15 5:00 AM) URINE AND STOOL Most recent to 1 oldest [Reference Range]: UA Turbidity [Clear] Clear (03/01/15 3:00 AM) UA Color Ltyellow *NA* (03/01/15 3:00 AM) UA pH [5.0-8.0] 6.0 (03/01/15 3:00 AM) UA Spec Grav 1.002 [<=1.030] (03/01/15 3:00 AM) UA Glucose [Negative Negative mg/dL mg/dL] *NA* (03/01/15 3:00 AM) UA Blood [Negative] Small *ABN* (03/01/15 3:00 AM) UA Ketones [Negative Negative mg/dL mg/dL] *NA* (03/01/15 3:00 AM) UA Protein [Negative Negative mg/dL mg/dL] (03/01/15 3:00 AM) UA Urobilinogen <=1.0 mg/dL [0.1-1.0 mg/dL] *NA* (03/01/15 3:00 AM) UA Bili [Negative] Negative *NA* (03/01/15 3:00 AM) UA Leuk Est Small [Negative] *ABN* (03/01/15 3:00 AM) UA Nitrite Negative [Negative] (03/01/15 3:00 AM) UA WBC [0-5 /HPF] 3 /HPF (03/01/15 3:00 AM) UA RBC [0-2 /HPF] <1 /HPF (03/01/15 3:00 AM) UA Sq Epi [Few /LPF] Occasional /LPF *NA* (03/01/15 3:00 AM) HEMATOLOGY Most recent to 1 oldest [Reference Range]: WBC [3.7-10.4 K/CMM] 5.3 K/CMM (03/01/15 5:00 AM) RBC [4.20-5.40 4.95 M/CMM M/CMM] (03/01/15 5:00 AM) Hgb [12.0-16.0 g/dL] 9.8 g/dL *LOW* (03/01/15 5:00 AM) Hct [36.0-48.0 %] 32.5 % *LOW* (03/01/15 5:00 AM) MCV [80.0-98.0 fL] 65.6 fL *LOW* (03/01/15 5:00 AM) MCH [27.0-31.0 pg] 19.9 pg *LOW* (03/01/15 5:00 AM) MCHC [32.0-36.0 30.3 g/dL g/dL] *LOW* (03/01/15 5:00 AM) RDW [11.5-14.5 %] 15.6 % *HI* (03/01/15 5:00 AM) Platelet [133-450 183 K/CMM K/CMM] (03/01/15 5:00 AM) MPV [7.4-10.4 fL] 9.0 fL (03/01/15 5:00 AM) Segs [45.0-75.0 %] 63.7 % (03/01/15 5:00 AM) Lymphocytes 27.2 % [20.0-40.0 %] (03/01/15 5:00 AM) Monocytes [2.0-12.0 6.5 % %] (03/01/15 5:00 AM) Eosinophils [0.0-4.0 1.7 % %] (03/01/15 5:00 AM) Basophils [0.0-1.0 0.9 % %] (03/01/15 5:00 AM) Segs-Bands # 3.4 K/CMM [1.5-8.1 K/CMM] (03/01/15 5:00 AM) Lymphocytes # 1.5 K/CMM [1.0-5.5 K/CMM] (03/01/15 5:00 AM) Monocytes # [0.0-0.8 0.3 K/CMM K/CMM] (03/01/15 5:00 AM) Eosinophils # 0.1 K/CMM [0.0-0.5 K/CMM] (03/01/15 5:00 AM) RBC Morph See Note (03/01/15 5:00 AM) Hypochrom [None 1+ Seen] (03/01/15 5:00 AM) Microcyte [None 1+ Seen] *ABN* (03/01/15 5:00 AM) Schistocyte [None 1-3 per HPF Seen] (03/01/15 5:00 AM) Plt Morph Normal (03/01/15 5:00 AM) PT [12.0-14.7 14.9 seconds seconds] *HI* (03/01/15 5:00 AM) INR [0.85-1.17] 1.14 (03/01/15 5:00 AM) PTT [22.9-35.8 23.7 seconds seconds] (03/01/15 5:00 AM) Immunizations No data available for this section Procedures Procedure Date Related Diagnosis Body Site Carotid endarterectomy1 04/09/14 Hysterectomy 1997 Discectomy 1996 Cholecystectomy 1994 Decompression of ulnar nerve 1left Social History Social History Type Response Substance Abuse Use: None. 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
--- OUTSIDE RECORDS SUMMARY | 2019-10-10 14:55 | XMS REPORT | Summary of Care ---
Author Organization Unknown Address Unknown Phone Unavailable Encounter [facility](ADIEL) [id number] Date(s): 01/30/14 - 02/04/14 [facility] [address] Discharge Disposition: Home Physician Attending: Earl Palacios MD Physician Admitting: Earl Palacios MD Reason for Visit CVA Vital Signs 1 2 3 Most recent to oldest [Reference Range]: 182.88 cm (01/31/14 2:42 AM) 185.42 cm (01/30/14 7:33 PM) Height 97.9 DegF (02/04/14 12:00 PM) 98.7 DegF (02/04/14 8:00 AM) 98.8 DegF (02/04/14 12:00 AM) Temperature Oral [96.4-99.1 DegF] 129 mmHg (02/04/14 12:00 PM) 125 mmHg (02/04/14 8:00 AM) 99 mmHg (02/04/14 4:00 AM) Systolic Blood Pressure [90-140 mmHg] 80 mmHg (02/04/14 12:00 PM) 86 mmHg (02/04/14 8:00 AM) 67 mmHg (02/04/14 4:00 AM) Diastolic Blood Pressure [60-90 mmHg] 16 BRMIN (02/04/14 12:00 PM) 16 BRMIN (02/04/14 8:13 AM) 16 BRMIN (02/04/14 8:00 AM) Respiratory Rate [14-20 BRMIN] 64 bpm (02/04/14 12:00 PM) 71 bpm (02/04/14 8:00 AM) 61 bpm (02/04/14 4:00 AM) Peripheral Pulse Rate [60-100 bpm] 88.864 kg (01/31/14 2:42 AM) 95.455 kg (01/30/14 7:33 PM) Weight 26.57 m2 (01/31/14 2:42 AM) 27.76 m2 (01/30/14 7:33 PM) Body Mass Index Problem List Condition Effective Dates Status Health Status Informan t ADD (attention Resolved deficit disorder)(Confirmed) Anxiety(Confirmed) Resolved Bipolar(Confirmed) Resolved Bulging Resolved disc(Confirmed) COPD(Confirmed) Resolved Sciatica(Confirmed) Resolved Seizure(Confirmed) Resolved TMJ (dislocation of Resolved temporomandibular joint)(Confirmed) Allergies, Adverse Reactions, Alerts Substance Reaction Severity Status penicillins Active Medications acetaminophen 650 mg, 2 tab, Route: PO, Drug form: TAB, Q4H, Dosing Weight 95.455, kg, PRN Crista n 1-3/Temp > 99.5 F, Start date: 01/30/14 23:44:00, Duration: 30 day, Stop date: 03/01/14 23:43:00 Notes: Do not exceed 4 gm/day. (Same as: Tylenol) Start Date: 01/30/14 Stop Date: 02/04/14 Status: Discontinued Adderall 20 mg, Route: PO, Drug form: TAB, QNoon, Dosing Weight 95.455, kg, Start date: 0 01/31/14 12:00:00, Duration: 30 day, Stop date: 03/01/14 12:00:00 Start Date: 01/31/14 Stop Date: 01/31/14 Status: Deleted Adderall 40 mg, Route: PO, Drug form: TAB, QAM, Dosing Weight 95.455, kg, Start date: 9:00:00, Duration: 30 day, Stop date: 03/01/14 9:00:00 Start Date: 01/31/14 Stop Date: 01/31/14 Status: Deleted Adderall 20 mg oral tablet 20 mg = 1 tab, PO, QNoon, 0 Refill(s) Start Date: 01/30/14 Status: Ordered Adderall 20 mg oral tablet 40 mg = 2 tab, PO, QAM, 0 Refill(s) Start Date: 01/30/14 Status: Ordered albuterol 90 mcg/inh inhalation aerosol 90 microgram, Route: INHALATION, Drug Form: AERO/A, Dosing Weight 95.455, kg, QI D, PRN Wheezing, Start date: 01/30/14 23:13:00, Duration: 30 day, Stop date: 23:12:00 Notes: Albuterol 90 microgram/inh 8gm HFA Same as: Dominick Grace Start Date: 01/30/14 Stop Date: 02/04/14 Status: Discontinued albuterol 90 mcg/inh inhalation aerosol 1 puff, INHALATION, QID, wheezing, # 1 ea, 0 Refill(s) Start Date: 01/30/14 Status: Ordered ALPRAZOLam 1 mg, 1 tab, Route: PO, Drug form: TAB, TID, Dosing Weight 95.455, kg, PRN as ne eded for anxiety, Start date: 01/30/14 23:13:00, Duration: 30 day, Stop date: 23:12:00 Notes: With food or milk(Same as: Xanax) Start Date: 01/30/14 Stop Date: 02/04/14 Status: Discontinued ALPRAZOLam 1 mg oral tablet, disintegrating 1 mg = 1 tab, PO, TID, for anxiety, 0 Refill(s) Start Date: 01/30/14 Status: Ordered Ambien 5 mg, 1 tab, Route: PO, Drug form: TAB, Bedtime, Dosing Weight 88.864, kg, PRN I nsomnia, Start date: 02/02/14 19:38:00, Duration: 30 day, Stop date: 03/04/14 19 :37:00 Notes: (Same As: Ambien) Start Date: 02/02/14 Stop Date: 02/04/14 Status: Discontinued aspirin 325 mg tablet, enteric coated 325 mg, 1 tab, Route: PO, Drug form: ECTAB, Q24H, Dosing Weight 95.455, kg, Star t date: 01/31/14 0:00:00, Duration: 30 day, Stop date: 03/01/14 0:00:00 Notes: (Do Not Crush) Do not crush or chew. Start Date: 01/31/14 Stop Date: 01/31/14 Status: Discontinued aspirin 81 mg tablet, enteric coated 81 mg, 1 tab, Route: PO, Drug form: ECTAB, Daily, Dosing Weight 88.864, kg, Star t date: 02/01/14 9:00:00, Duration: 30 day, Stop date: 03/02/14 9:00:00 Notes: Do not crush or chew.(Same As: Ecotrin) Start Date: 02/01/14 Stop Date: 02/04/14 Status: Discontinued aspirin 81 mg tablet, enteric coated 81 mg = 1 tab, PO, Daily, # 30 tab, 0 Refill(s) Start Date: 02/04/14 Status: Ordered atorvastatin 10 mg oral tablet 20 mg = 2 tab, PO, Bedtime, # 30 tab, 0 Refill(s) Start Date: 02/04/14 Status: Ordered atropine 0.5 mg, 5 mL, Route: IVP, Drug form: INJ, ONCALL, Dosing Weight 95.455, kg, PRN Bradycardia, Start date: 01/30/14 23:36:00, Duration: 30 day, Stop date: 4 23:35:00, symptomatic bradycardia with a rate <40/minute Start Date: 01/30/14 Stop Date: 02/04/14 Status: Discontinued clonazePAM 1 mg, 1 tab, Route: PO, Drug form: TAB, BID, Dosing Weight 95.455, kg, Start michael e: 02/02/14 21:00:00, Stop date: 03/04/14 9:00:00 Notes: (Same As: KlonoPIN) Start Date: 02/02/14 Stop Date: 02/04/14 Status: Discontinued clonazePAM 4 mg, 4 tab, Route: PO, Drug form: TAB, Bedtime, Dosing Weight 95.455, kg, Start date: 01/31/14 0:05:00, Duration: 30 day, Stop date: 03/01/14 21:00:00 Notes: (Same As: KlonoPIN) Start Date: 01/31/14 Stop Date: 02/02/14 Status: Discontinued clonazePAM 2 mg, 2 tab, Route: PO, Drug form: TAB, Daily, Dosing Weight 95.455, kg, Start d ate: 01/31/14 9:00:00, Duration: 30 day, Stop date: 03/01/14 9:00:00 Notes: (Same As: KlonoPIN) Start Date: 01/31/14 Stop Date: 02/02/14 Status: Discontinued clonazePAM 2 mg oral tablet 4 mg = 2 tab, PO, Bedtime, 0 Refill(s) Start Date: 01/30/14 Status: Ordered clonazePAM 2 mg oral tablet 2 mg = 1 tab, PO, Daily, 0 Refill(s) Start Date: 01/30/14 Status: Ordered clopidogrel 75 mg oral tablet 75 mg = 1 tab, PO, Daily, # 30 tab, 0 Refill(s) Start Date: 02/04/14 Status: Ordered Depacon + Sodium Chloride 0.9% IV 100 mL 500 mg, 5 mL, Route: IVPB, Drug form: INJ, ONCE, Dosing Weight 88.864, kg, Start date: 02/01/14 12:55:00, Stop date: 02/01/14 12:55:00 Notes: Dilute in at least 50ml D5W or NS. Infusion rate = 20 mg/min(Same As: Dep acon) Start Date: 02/01/14 Stop Date: 02/01/14 Status: Completed Depacon + Sodium Chloride 0.9% IV 45 mL 500 mg, 5 mL, Route: IVPB, Drug form: INJ, ONCE, Dosing Weight 88.864, kg, Start date: 02/04/14 10:23:00, Stop date: 02/04/14 10:23:00 Start Date: 02/04/14 Stop Date: 02/04/14 Status: Completed Depacon + Sodium Chloride 0.9% IV 50 mL 250 mg, 2.5 mL, Route: IVPB, Drug form: INJ, ONCE, Dosing Weight 88.864, kg, Sta rt date: 02/01/14 20:53:00, Stop date: 02/01/14 20:53:00 Notes: Dilute in at least 50ml D5W or NS. Infusion rate = 20 mg/min(Same As: Dep acon) Start Date: 02/01/14 Stop Date: 02/01/14 Status: Completed Depacon + Sodium Chloride 0.9% IV 50 mL 250 mg, 2.5 mL, Route: IVPB, Drug form: INJ, ONCE, Dosing Weight 88.864, kg, Sta rt date: 02/03/14 17:15:00, Stop date: 02/03/14 17:15:00 Notes: Dilute in at least 50ml D5W or NS. Infusion rate = 20 mg/min(Same As: Dep acon) Start Date: 02/03/14 Stop Date: 02/03/14 Status: Completed Dilaudid 0.5 mg, Route: IVP, ONCE, Dosing Weight 95.455, kg, Priority: STAT, Start date: 01/30/14 20:31:00, Stop date: 01/30/14 20:31:00 Start Date: 01/30/14 Stop Date: 01/30/14 Status: Completed Dilaudid 0.5 mg, Route: IVP, ONCE, Dosing Weight 95.455, kg, Priority: STAT, Start date: 01/30/14 21:08:00, Stop date: 01/30/14 21:08:00 Start Date: 01/30/14 Stop Date: 01/30/14 Status: Completed DuoNeb inhalation solution 3 ml, Route: INHALATION, Drug Form: SOLN, Dosing Weight 95.455, kg, PRN, PRN Res piratory Protocol, Start date: 01/30/14 23:17:00, Duration: 30 day, Stop date: 1 23:16:00 Notes: (Same as: Duoneb) Start Date: 01/30/14 Stop Date: 02/04/14 Status: Discontinued folic acid 0.4 mg, 1 tab, Route: PO, Drug form: TAB, Daily, Dosing Weight 95.455, kg, Start date: 01/31/14 9:00:00, Duration: 30 day, Stop date: 03/01/14 9:00:00 Start Date: 01/31/14 Stop Date: 02/04/14 Status: Discontinued folic acid 0.4 mg oral tablet 0.4 mg = 1 tab, PO, Daily, # 100 tab, 0 Refill(s) Start Date: 01/30/14 Status: Ordered Frova 2.5 mg, Route: PO, Drug form: TAB, PRN, Dosing Weight 95.455, kg, PRN, Start michael e: 01/30/14 23:14:00, Duration: 30 day, Stop date: 03/01/14 23:13:00, migraine Start Date: 01/30/14 Stop Date: 01/31/14 Status: Deleted Frova 2.5 mg oral tablet 2.5 mg = 1 tab, PO, PRN, migraines, # 9 tab, 0 Refill(s) Start Date: 01/30/14 Status: Ordered GoLYTELY 240 mL, Route: PO, Drug Form: PDR/REC, Dosing Weight 88.864, kg, ONCE, STAT, Sta rt date: 02/04/14 13:53:00, Duration: 1 doses or times, Stop date: 02/04/14 13:5 3:00 Notes: (polyethylene glycol electrolyte solution 4 Liter bottle) (Same as: Klaus Alvarez) Start Date: 02/04/14 Stop Date: 02/04/14 Status: Deleted GoLYTELY 240 mL, Route: PO, Drug Form: PDR/REC, Dosing Weight 88.864, kg, ONCE, STAT, Sta rt date: 02/04/14 14:33:00, Duration: 1 doses or times, Stop date: 02/04/14 14:3 3:00 Notes: (polyethylene glycol electrolyte solution 4 Liter bottle) (Same as: Klaus Alvarez) Start Date: 02/04/14 Stop Date: 02/04/14 Status: Completed ketorolac 30 mg, 1 mL, Route: IV, Drug form: INJ, Q6H, Dosing Weight 88.864, kg, PRN Pain Score 4-6, Start date: 01/31/14 10:30:00, Duration: 4 day, Stop date: 02/04/14 1 0:29:00 Notes: (Same as:Toradol) IV bolus must be given >15 seconds. Give IM administration slowly and deeply into the muscle. Not for use > 4 days Start Date: 01/31/14 Stop Date: 02/01/14 Status: Discontinued labetalol 10 mg, 2 mL, Route: IVP, Drug form: INJ, Q10Min, Dosing Weight 95.455, kg, PRN S ee Nurse's Notes, Start date: 01/30/14 23:44:00, Duration: 30 day, Stop date: 23:43:00, For SBP > 170mmHg and/or DBP > 105mmHg Notes: (Same as: Normodyne, Trandate)Push over 2 minutes Give bolus over 2-3 mi nutes. Start Date: 01/30/14 Stop Date: 02/04/14 Status: Discontinued lactulose 10 g/15 mL oral syrup 10 gm, 15 mL, Route: PO, Drug Form: SYRP, Dosing Weight 88.864, kg, BID, Start d ate: 02/02/14 17:00:00, Duration: 30 day, Stop date: 03/04/14 9:00:00 Notes: (Same as:Chronulac) Start Date: 02/02/14 Stop Date: 02/04/14 Status: Discontinued Lipitor 20 mg, 2 tab, Route: PO, Drug form: TAB, Bedtime, Dosing Weight 88.864, kg, Star t date: 02/01/14 21:00:00, Duration: 30 day, Stop date: 03/02/14 21:00:00 Notes: (Same As: Lipitor) Start Date: 02/01/14 Stop Date: 02/04/14 Status: Discontinued lithium 300 mg, 1 tab, Route: PO, Drug form: ERTAB, BID, Dosing Weight 95.455, kg, Start date: 02/02/14 21:00:00, Duration: 30 day, Stop date: 03/04/14 9:00:00 Notes: Do not crush or chew. Start Date: 02/02/14 Stop Date: 02/04/14 Status: Discontinued lithium 900 mg, 2 tab, Route: PO, Drug form: ERTAB, Bedtime, Dosing Weight 95.455, kg, S tart date: 01/31/14 0:05:00, Stop date: 03/01/14 21:00:00 Notes: Do not crush or chew. (Same as: Henry) Start Date: 01/31/14 Stop Date: 02/02/14 Status: Discontinued lithium 300 mg oral tablet 900 mg = 3 tab, PO, Bedtime, # 90 tab, 0 Refill(s) Start Date: 01/30/14 Status: Ordered naproxen 500 mg, 1 tab, Route: PO, Drug form: TAB, BID, Dosing Weight 88.864, kg, PRN as needed for headache, Start date: 02/01/14 9:22:00, Duration: 30 day, Stop date: 03/03/14 9:21:00 Notes: (Same as: Naprosyn) Take with food. Start Date: 02/01/14 Stop Date: 02/01/14 Status: Discontinued naproxen 500 mg, 1 tab, Route: PO, Drug form: TAB, Q12H, Dosing Weight 88.864, kg, PRN He adache 1-3, Start date: 02/01/14 19:56:00, Stop date: 03/03/14 19:55:00 Notes: (Same as: Naprosyn) Take with food. Start Date: 02/01/14 Stop Date: 02/04/14 Status: Discontinued naproxen 500 mg oral tablet 500 mg = 1 tab, PO, Q12H, Headache 1-3, # 30 tab, 0 Refill(s) Start Date: 02/04/14 Status: Ordered nicotine 21 mg, 1 patch, Route: TOP, Drug form: ERFILM, Daily, Dosing Weight 95.455, kg, PRN as needed for smoking cessation, Start date: 01/30/14 23:17:00, Duration: 30 day, Stop date: 03/01/14 23:16:00 Notes: (Same as: Habitrol)"Remove old patch before application of new patch" Start Date: 01/30/14 Stop Date: 02/04/14 Status: Discontinued nitroglycerin 0.4 mg sublingual tablet 0.4 mg, 1 tab, Route: SL, Drug form: TAB, Q5Min, Dosing Weight 95.455, kg, PRN C hest Pain, Start date: 01/30/14 23:36:00, Duration: 30 day, Stop date: 03/01/14 23:35:00 Notes: (Same as:Nitroquick, Nitrostat)"Do Not Crush" Sublingual tablet Start Date: 01/30/14 Stop Date: 02/04/14 Status: Discontinued pantoprazole 40 mg, 1 tab, Route: PO, Drug form: ECTAB, Daily, Dosing Weight 95.455, kg, Star t date: 01/31/14 9:00:00, Duration: 30 day, Stop date: 03/01/14 9:00:00 Notes: Tablet should not be chewed or crushed.(Same as: Protonix) Start Date: 01/31/14 Stop Date: 02/04/14 Status: Discontinued Patient's own med: Adderall Patient's own med: Adderall, 20 mg, Drug form: MISC, Route: PO, QPM, 01/31/14 12 :00:00, Stop date: 03/01/14 12:00:00 Start Date: 01/31/14 Stop Date: 02/04/14 Status: Discontinued Patient's own med: Adderall Patient's own med: Adderall, 40 mg, Drug form: MISC, Route: PO, QAM, 01/31/14 9: 00:00, Stop date: 03/01/14 6:00:00 Start Date: 01/31/14 Stop Date: 02/04/14 Status: Discontinued Patient'w own med: Frova Patient'w own med: Frova, 2.5 mg, Drug form: MISC, Route: PO, PRN, PRN Headache, 01/31/14 0:32:00, Duration: 30 day, Stop date: 03/02/14 0:31:00 Start Date: 01/31/14 Stop Date: 02/04/14 Status: Discontinued Plavix 75 mg, 1 tab, Route: PO, Drug form: TAB, Daily, Dosing Weight 88.864, kg, Start date: 01/31/14 13:00:00, Duration: 30 day, Stop date: 03/02/14 9:00:00 Notes: (Same As: Plavix) Start Date: 01/31/14 Stop Date: 02/04/14 Status: Discontinued Saline Flush 0.9% 10 mL, Route: IVP, Drug Form: INJ, Dosing Weight 85.455, kg, PRN, PRN Line Flush , Start date: 01/30/14 19:41:00, Duration: 30 day, Stop date: 03/01/14 19:40:00 Notes: Same as: BD Posiflush Sterile Start Date: 01/30/14 Stop Date: 01/30/14 Status: Discontinued Saline Flush 0.9% 10 ml, Route: IVP, Drug Form: INJ, Dosing Weight 95.455, kg, PRN, PRN Line Flush , Start date: 01/30/14 23:44:00, Duration: 30 day, Stop date: 03/01/14 23:43:00 Notes: Same as: BD Posiflush Sterile Start Date: 01/30/14 Stop Date: 02/04/14 Status: Discontinued Saline Flush 0.9% 10 ml, Route: IVP, Drug Form: INJ, Dosing Weight 95.455, kg, Q12H, Start date: 0 01/31/14 9:00:00, Duration: 30 day, Stop date: 03/01/14 21:00:00 Notes: Same as: BD Posiflush Sterile Start Date: 01/31/14 Stop Date: 02/04/14 Status: Discontinued Solu-MEDROL 100 mg, 1.6 mL, Route: IV, Drug form: INJ, ONCE, Dosing Weight 88.864, kg, Start date: 02/01/14 20:53:00, Stop date: 02/01/14 20:53:00 Notes: (Same as:Solu-MEDROL, A-Methapred) Start Date: 02/01/14 Stop Date: 02/01/14 Status: Completed Tegretol 400 mg, 2 tab, Route: PO, Drug form: TAB, QNoon, Dosing Weight 95.455, kg, Start date: 01/31/14 12:00:00, Duration: 30 day, Stop date: 03/01/14 12:00:00 Notes: With food. (Same As: Tegretol) Start Date: 01/31/14 Stop Date: 02/04/14 Status: Discontinued Tegretol 600 mg, 3 tab, Route: PO, Drug form: TAB, Bedtime, Dosing Weight 95.455, kg, Sta rt date: 01/31/14 21:00:00, Duration: 30 day, Stop date: 03/01/14 21:00:00 Notes: With food. (Same As: Tegretol) Start Date: 01/31/14 Stop Date: 02/04/14 Status: Discontinued Tegretol 200 mg oral tablet 600 mg = 3 tab, PO, Bedtime, # 120 tab, 0 Refill(s) Start Date: 01/30/14 Stop Date: 03/01/14 Status: Ordered Tegretol 200 mg oral tablet 400 mg = 2 tab, PO, QNoon, # 120 tab, 0 Refill(s) Start Date: 01/30/14 Stop Date: 03/01/14 Status: Ordered trazodone 100 mg oral tablet 150 mg, 3 tab, Route: PO, Drug form: TAB, Bedtime, Dosing Weight 95.455, kg, Sta rt date: 02/02/14 21:00:00, Duration: 30 day, Stop date: 03/03/14 21:00:00 Notes: (Same As: Valentina) Start Date: 02/02/14 Stop Date: 02/04/14 Status: Discontinued trazodone 100 mg oral tablet 400 mg = 4 tab, PO, Bedtime, # 90 tab, 0 Refill(s) Start Date: 01/30/14 Status: Ordered trazodone 100 mg oral tablet 400 mg, 4 tab, Route: PO, Drug form: TAB, Bedtime, Dosing Weight 95.455, kg, Sta rt date: 01/31/14 0:01:00, Duration: 30 day, Stop date: 03/01/14 21:00:00 Notes: (Same As: Valentina) Start Date: 01/31/14 Stop Date: 02/02/14 Status: Discontinued ziprasidone 80 mg, 1 cap, Route: PO, Drug form: CAP, Bedtime, Dosing Weight 95.455, kg, Star t date: 02/02/14 21:00:00, Duration: 30 day, Stop date: 03/03/14 21:00:00 Notes: (Same As: Cindy) Start Date: 02/02/14 Stop Date: 02/04/14 Status: Discontinued ziprasidone 160 mg, 2 cap, Route: PO, Drug form: CAP, Bedtime, Dosing Weight 95.455, kg, Sta rt date: 01/31/14 0:02:00, Duration: 30 day, Stop date: 03/01/14 21:00:00 Notes: (Same As: Cindy) Start Date: 01/31/14 Stop Date: 02/02/14 Status: Discontinued ziprasidone 80 mg oral capsule 160 mg = 2 cap, PO, Bedtime, # 180 cap, 0 Refill(s) Start Date: 01/30/14 Status: Ordered Results ELECTROLYTES Most recent to 1 oldest [Reference Range]: Sodium Lvl [135-145 139 mEq/L mEq/L] (01/30/14 7:56 PM) Potassium Lvl 3.5 mEq/L [3.5-5.1 mEq/L] (01/30/14 7:56 PM) Chloride Lvl [95-109 107 mEq/L mEq/L] (01/30/14 7:56 PM) CO2 [24-32 mEq/L] 27 mEq/L (01/30/14 7:56 PM) AGAP [10.0-20.0 8.5 mEq/L mEq/L] *LOW* (01/30/14 7:56 PM) CHEM PANEL Most recent to 1 oldest [Reference Range]: Creatinine Lvl 0.7 mg/dL [0.5-1.4 mg/dL] (01/30/14 7:56 PM) eGFR 100 mL/min/1.73m2 1 *NA* (01/30/14 7:56 PM) BUN [7-22 mg/dL] 9 mg/dL (01/30/14 7:56 PM) B/C Ratio [6-25] 13 (01/30/14 7:56 PM) Glucose Lvl [70-99 109 mg/dL 2 mg/dL] *HI* (01/30/14 7:56 PM) Total Protein 6.7 g/dL [6.4-8.4 g/dL] (01/30/14 7:56 PM) Albumin Lvl [3.5-5.0 3.4 g/dL g/dL] *LOW* (01/30/14 7:56 PM) Globulin [2.0-4.0 3.3 g/dL g/dL] (01/30/14 7:56 PM) A/G Ratio [0.7-1.6] 1.0 (01/30/14 7:56 PM) Calcium Lvl 8.2 mg/dL [8.5-10.5 mg/dL] *LOW* (01/30/14 7:56 PM) ALT [0-65 unit/L] 18 unit/L (01/30/14 7:56 PM) AST [0-37 unit/L] 10 unit/L (01/30/14 7:56 PM) Alk Phos [39-136 38 unit/L unit/L] *LOW* (01/30/14 7:56 PM) Bili Total [0.2-1.3 0.2 mg/dL mg/dL] (01/30/14 7:56 PM) 1Result Comment: The eGFR is calculated using [...] be mul tiplied by the estimated BMI. 2Interpretive Data: Adult reference range values reflect the clinical guidelines of the [place] [employer]. CARDIAC ENZYMES Most recent to 1 oldest [Reference Range]: Total CK [12-191 35 unit/L unit/L] (01/30/14 7:56 PM) CK MB [0.5-3.6 <0.5 ng/mL ng/mL] (01/30/14 7:56 PM) CK MB Index <1.4 [0.0-2.5] (01/30/14 7:56 PM) Troponin-I <0.02 ng/mL [0.00-0.40 ng/mL] (01/30/14 7:56 PM) LIPIDS Most recent to 1 oldest [Reference Range]: CHD Risk [3.90-5.80] 3.67 *LOW* (01/31/14 3:50 AM) Chol [<=199 mg/dL] 154 mg/dL (01/31/14 3:50 AM) Trig [<=149 mg/dL] 229 mg/dL *HI* (01/31/14 3:50 AM) HDL [>=61 mg/dL] 42 mg/dL *LOW* (01/31/14 3:50 AM) LDL (Calculated) 66 mg/dL [<=99 mg/dL] (01/31/14 3:50 AM) VLDL 46 *NA* (01/31/14 3:50 AM) SPECIAL CHEMISTRY Most recent to 1 oldest [Reference Range]: Hgb A1C [<=5.6 %] 4.8 % (01/31/14 3:50 AM) DRUG SCREEN Most recent to 1 oldest [Reference Range]: U Amph Scr Positive [Negative] *ABN* (01/30/14 9:50 PM) U Alvina Scr Negative [Negative] *NA* (01/30/14 9:50 PM) U Benzodia Scr Positive [Negative] *ABN* (01/30/14 9:50 PM) U Cocaine Scr Negative [Negative] *NA* (01/30/14 9:50 PM) U Opiate Scr Positive [Negative] *ABN* (01/30/14 9:50 PM) U Phencyc Scr Negative [Negative] *NA* (01/30/14 9:50 PM) U Cannab Scr Negative [Negative] *NA* (01/30/14 9:50 PM) UDS Note See Note 3 (01/30/14 9:50 PM) 3Interpretive Data: Drugs reported as positive have not been confirmed by a second method and should be used for medical purposes only. To order confirmation, contact laboratory. note: Below are cut-off concentrations for all urine drugs of abuse performed in the laboratory. Some drugs listed in the table may not be included in this panel. Description Cut-off concentration Amphetamine 1000 ng/mL Barbiturates 200 ng/mL Benzodiazepines 300 ng/mL Cocaine metabolites 300 ng/mL Opiates 300 ng/mL Phencyclidine 25 ng/mL Propoxyphene 300 ng/mL Marijuana metabolites 50 ng/mL Methadone 300 ng/mL Urine alcohol 20 mg/dL TOXICOLOGY Most recent to 1 oldest [Reference Range]: Carbamaz Lvl 4.2 ug/ml [8.0-12.0 ug/ml] *LOW* (01/31/14 3:50 AM) Etoh (%) <.003 % 4 *NA* (01/30/14 7:56 PM) Ethanol Lvl <3 mg/dL 5 *NA* (01/30/14 7:56 PM) 4Interpretive Data: Ethanol testing results should be used for medical purposes only. Negative Range: <0.003% Toxic Range: >0.25% 5Interpretive Data: Negative Range: <3 mg/dL Toxic Range: >250 mg/dL METAL Most recent to 1 oldest [Reference Range]: [place] Lvl 0.57 mEq/L [0.50-1.50 mEq/L] (01/31/14 3:50 AM) URINE AND STOOL Most recent to 1 oldest [Reference Range]: UA Turbidity [Clear] Slight *ABN* (01/30/14 9:50 PM) UA Color Ltyellow *NA* (01/30/14 9:50 PM) UA pH [5.0-8.0] 6.0 (01/30/14 9:50 PM) UA Spec Grav 1.010 [<=1.030] (01/30/14 9:50 PM) UA Glucose [Negative Negative mg/dL mg/dL] *NA* (01/30/14 9:50 PM) UA Blood [Negative] Negative (01/30/14 9:50 PM) UA Ketones [Negative Negative mg/dL mg/dL] *NA* (01/30/14 9:50 PM) UA Protein [Negative Negative mg/dL mg/dL] (01/30/14 9:50 PM) UA Urobilinogen <=1.0 mg/dL [0.1-1.0 mg/dL] *NA* (01/30/14 9:50 PM) UA Bili [Negative] Negative *NA* (01/30/14 9:50 PM) UA Leuk Est Negative [Negative] (01/30/14 9:50 PM) UA Nitrite Negative [Negative] (01/30/14 9:50 PM) UA WBC [0-5 /HPF] 1 /HPF (01/30/14 9:50 PM) UA RBC [0-2 /HPF] 1 /HPF (01/30/14 9:50 PM) UA Sq Epi [Few /LPF] Few /LPF *NA* (01/30/14 9:50 PM) UA Hyal Cast [0-2 3 /LPF /LPF] *HI* (01/30/14 9:50 PM) IMMUNOLOGY Most recent to 1 oldest [Reference Range]: CDC HIV 4th GEN Negative [Negative] (01/30/14 7:56 PM) HEMATOLOGY Most recent to 1 oldest [Reference Range]: WBC [3.7-10.4 K/CMM] 7.0 K/CMM (01/30/14 7:56 PM) RBC [4.20-5.40 4.91 M/CMM M/CMM] (01/30/14 7:56 PM) Hgb [12.0-16.0 g/dL] 10.2 g/dL *LOW* (01/30/14 7:56 PM) Hct [36.0-48.0 %] 32.5 % *LOW* (01/30/14 7:56 PM) MCV [80.0-98.0 fL] 66.2 fL *LOW* (01/30/14 7:56 PM) MCH [27.0-31.0 pg] 20.7 pg *LOW* (01/30/14 7:56 PM) MCHC [32.0-36.0 31.3 g/dL g/dL] *LOW* (01/30/14 7:56 PM) RDW [11.5-14.5 %] 15.6 % *HI* (01/30/14 7:56 PM) Platelet [133-450 184 K/CMM K/CMM] (01/30/14 7:56 PM) MPV [7.4-10.4 fL] 9.3 fL (01/30/14 7:56 PM) Segs [45.0-75.0 %] 58.7 % (01/30/14 7:56 PM) Lymphocytes 33.7 % [20.0-40.0 %] (01/30/14 7:56 PM) Monocytes [2.0-12.0 3.7 % %] (01/30/14 7:56 PM) Eosinophils [0.0-4.0 3.2 % %] (01/30/14 7:56 PM) Basophils [0.0-1.0 0.7 % %] (01/30/14 7:56 PM) Segs-Bands # 4.1 K/CMM [1.5-8.1 K/CMM] (01/30/14 7:56 PM) Lymphocytes # 2.3 K/CMM [1.0-5.5 K/CMM] (01/30/14 7:56 PM) Monocytes # [0.0-0.8 0.3 K/CMM K/CMM] (01/30/14 7:56 PM) Eosinophils # 0.2 K/CMM [0.0-0.5 K/CMM] (01/30/14 7:56 PM) Anisocyte [None 1+ Seen] *ABN* (01/30/14 7:56 PM) Microcyte [None 3+ Seen] *NA* (01/30/14 7:56 PM) Plt Morph Normal (01/30/14 7:56 PM) PT [12.0-14.7 13.9 seconds seconds] (01/30/14 7:56 PM) INR [0.85-1.17] 1.07 6 (01/30/14 7:56 PM) PTT [22.9-35.8 26.4 seconds 7 seconds] (01/30/14 7:56 PM) 6Interpretive Data: RECOMMENDED RANGES FOR PROTIME INR: 2.0-3.0 for most medical and surgical thromboembolic states. 2.5-3.5 for artificial heart valves and recurrent embolism. INR SHOULD BE USED ONLY FOR PATIENTS ON STABLE ANTICOAGULANT THERAPY. 7Interpretive Data: Heparin Therapeutic Range: 57 - 92 Seconds Medications Administered During Your Visit No data available for this section Immunizations No data available for this section Procedures Procedure Type Body Site Date of Procedure Related Diag nosis Cholecystectomy Decompression of ulnar nerve Discectomy Hysterectomy Social History Social History Type Response Substance Abuse Use: None Alcohol Use: Never Smoking Status Current every day smoker, T ype: Cigarettes, Exposure to Tobacco Smoke None, Cigarette Smoking Last 365 Days Yes, Re g Smoking Cessation Counseling No Assessment and Plan Extracted from: Title: Clinical Document Author: John Talley MD Date: 01/08 01/20 PROGRESS NOTE Psychiatry JOHN TALLEY M.D. Patient seen, Events noted. SUBJECTIVE : feels better. OBJECTIVE : She is alert, awake, calm, o x 3, no agitation, no s/e of meds, d/w staff/ Allergies: penicillins Labs (Last four charted values) WBC 7.0(JAN 30) Hgb L 10.2(JAN 30) Hct L 32.5(JAN 30) Plt 184(JAN 30) Na 139(JAN 30) K 3.5(JAN 30) CO2 27(JAN 30) Cl 107(JAN 30) Cr 0.7(JAN 30) BUN 9(JAN 30) Glucose Random H 109(JAN 30) Ca L 8.2(JAN 30) PT 13.9(JAN 30) INR 1.07(JAN 30) PTT 26.4(JAN 30) Troponin <0.02(JAN 30) CK MB <0.5(JAN 30) Total CK 35(JAN 30) MENTAL STATUS EXAM: She is alert, [...]
--- OUTSIDE RECORDS SUMMARY | 2019-10-10 14:56 | XMS REPORT | Summary of Care ---
Author Author [facility] Organization [facility] Address Unknown Phone Unavailable Encounter KAMAR Tsang(ADIEL) [id number] Date(s): 09/17/15 - 09/19/15 [facility] [address] [place] [address]- Discharge Disposition: Home Attending Physician: Dago Rogers MD Admitting Physician: Dago Rogers MD Vital Signs 1 2 3 Most recent to oldest [Reference Range]: 182.88 cm (09/17/15 7:28 PM) 182.88 cm (09/17/15 11:31 AM) Height 97.9 DegF (09/19/15 11:40 AM) 97.3 DegF (09/19/15 8:28 AM) 98.0 DegF (09/19/15 3:22 AM) Temperature Oral [96.4-99.1 DegF] 176/84 mmHg *HI* (09/19/15 11:40 AM) 135/85 mmHg (09/19/15 8:28 AM) 124/76 mmHg (09/19/15 3:22 AM) Blood Pressure [90-140/60-90 mmHg] 15 BRMIN (09/19/15 8:28 AM) 16 BRMIN (09/19/15 3:22 AM) 16 BRMIN (09/18/15 11:18 PM) Respiratory Rate [14-20 BRMIN] 58 bpm *LOW* (09/19/15 8:28 AM) 72 bpm (09/19/15 3:22 AM) 73 bpm (09/19/15 12:07 AM) Peripheral Pulse Rate [60-100 bpm] 90.909 kg (09/17/15 7:28 PM) 90.909 kg (09/17/15 11:31 AM) Weight 27.18 m2 (09/17/15 7:28 PM) 27.18 m2 (09/17/15 11:31 AM) Body Mass Index Problem List Condition [...] Substance Reaction Severity Status penicillins Active Medications RN-Bring pt's own Abilify & Topamax sprinkles for labeling RN-Bring pt's own Abilify & Topamax sprinkles for labeling, Attn:ELEUTERIO, Drug form: MISC, Route: MISC, QSHIFT, 09/18/15 13:00:00 CDT, Duration: 30 day, Stop date: 10/18/15 8:00:00 CDT Start Date: 09/18/15 Stop Date: 09/19/15 Status: Discontinued Abilify 2 mg, PO, Daily, 0 Refill(s) Start Date: 09/17/15 Status: Ordered Abilify 2 mg, Route: PO, Daily, Dosing Weight 90.909, kg, Start date: 09/19/15 9:00:00 C DT, Duration: 30 day, Stop date: 10/18/15 9:00:00 CDT Start Date: 09/19/15 Stop Date: 09/19/15 Status: Discontinued ALPRAZOLam 2 mg, Route: PO, TID, Dosing Weight 90.909, kg, Start date: 09/18/15 13:00:00 CD T, Duration: 30 day, Stop date: 10/18/15 9:00:00 CDT Start Date: 09/18/15 Stop Date: 09/18/15 Status: Canceled ALPRAZOLam 1 mg oral tablet 1 mg = 1 tab, PO, QNoon, 0 Refill(s) Start Date: 09/17/15 Stop Date: 09/17/15 Status: Deleted amphetamine-dextroamphetamine 20 mg oral tablet 40 mg = 2 tab, PO, QNoon, 0 Refill(s) Start Date: 09/17/15 Stop Date: 09/17/15 Status: Deleted APAP/butalbital/caffeine 1 tab, Route: PO, Drug Form: TAB, Q4H, PRN Headache 1-5, Start date: 09/18/15 12 :26:00 CDT, Duration: 30 day, Stop date: 10/18/15 12:25:00 CDT Notes: (iplsztpahuqsm-ibfumniiro-jdgrcavf 325-50-40mg) Do not exceed 4 gm/day o f acetaminophen. (Same as: Esgic, Fioricet) Start Date: 09/18/15 Stop Date: 09/19/15 Status: Discontinued APAP/butalbital/caffeine 1 tab, Route: PO, Drug Form: TAB, Q4H, PRN Headache 1-5, Start date: 09/17/15 21 :56:00 CDT, Duration: 30 day, Stop date: 10/17/15 21:55:00 CDT Notes: (azmbhfncgymeo-lpofrqzjjk-cgavtqbn 325-50-40mg) Do not exceed 4 gm/day o f acetaminophen. (Same as: Esgic, Fioricet) Start Date: 09/17/15 Stop Date: 09/18/15 Status: Discontinued APAP/butalbital/caffeine/codeine oral capsule 1 cap, Route: PO, Dosing Weight 90.909, kg, Q4H, PRN Headache 1-5, Start date: 0 09/17/15 21:09:00 CDT, Duration: 30 day, Stop date: 10/17/15 21:08:00 CDT Start Date: 09/17/15 Stop Date: 09/17/15 Status: Deleted aspirin 81 mg, PO, Daily, 0 Refill(s) Start Date: 09/17/15 Status: Ordered aspirin 81 mg, 1 tab, Route: PO, Drug form: ECTAB, Daily, Dosing Weight 90.909, kg, Star t date: 09/18/15 12:00:00 CDT, Duration: 30 day, Stop date: 10/18/15 9:00:00 CDT Notes: Do not crush or chew.(Same As: Ecotrin) Start Date: 09/18/15 Stop Date: 09/19/15 Status: Discontinued Ativan 2 mg, 1 mL, Route: IV, Drug form: INJ, ONCE, Dosing Weight 90.909, kg, PRN as ne eded for anxiety, FOR MRI, Start date: 09/17/15 20:51:00 CDT, Stop date: 6 20:51:00 CDT Notes: (Same as: Ativan) Start Date: 09/17/15 Stop Date: 09/17/15 Status: Completed Ativan 2 mg, 1 mL, Route: IVP, Drug form: INJ, ONCE, Dosing Weight 90.909, kg, PRN Anxi ety, Priority: NOW, Start date: 09/17/15 23:03:00 CDT Notes: (Same as: Ativan) Start Date: 09/17/15 Stop Date: 09/17/15 Status: Completed atorvastatin 20 mg, PO, Bedtime, 0 Refill(s) Start Date: 09/17/15 Status: Ordered atorvastatin 20 mg, 2 tab, Route: PO, Drug form: TAB, Bedtime, Dosing Weight 90.909, kg, Star t date: 09/18/15 21:00:00 CDT, Duration: 30 day, Stop date: 10/17/15 21:00:00 CD T Notes: (Same As: Lipitor) Start Date: 09/18/15 Stop Date: 09/19/15 Status: Discontinued clonazePAM 6 mg, PO, Bedtime, 0 Refill(s) Start Date: 09/17/15 Stop Date: 09/18/15 Status: Deleted clonazePAM 6 mg, Route: PO, Bedtime, Dosing Weight 90.909, kg, Start date: 09/18/15 21:00:0 0 CDT, Duration: 30 day, Stop date: 10/17/15 21:00:00 CDT Start Date: 09/18/15 Stop Date: 09/18/15 Status: Canceled codeine sulfate 30 mg, 1 tab, Route: PO, Drug form: TAB, Q4H, PRN Headache 1-5, Start date: 09/06 05/24 22:00:00 CDT, Duration: 30 day, Stop date: 10/17/15 21:59:00 CDT Start Date: 09/17/15 Stop Date: 09/18/15 Status: Discontinued Flexeril 10 mg, 1 tab, Route: PO, Drug form: TAB, TID, Start date: 09/18/15 14:00:00 CDT, Duration: 30 day, Stop date: 10/18/15 8:00:00 CDT Notes: (Same As: Flexeril) Start Date: 09/18/15 Stop Date: 09/19/15 Status: Discontinued Flexeril 15 mg, PO, TID, 0 Refill(s) Start Date: 09/18/15 Status: Ordered Flexeril 15 mg, Route: PO, Drug form: TAB, TID, Dosing Weight 90.909, kg, Start date: 04/23 13:00:00 CDT, Duration: 30 day, Stop date: 10/18/15 9:00:00 CDT Start Date: 09/18/15 Stop Date: 09/18/15 Status: Canceled Flexeril 5 mg oral tablet 15 mg = 3 tab, PO, TID, 0 Refill(s) Start Date: 09/17/15 Stop Date: 09/18/15 Status: Deleted hydrALAZINE 10 mg, 0.5 mL, Route: IV, Drug form: INJ, Q6H, Dosing Weight 90.909, kg, PRN Cathy vated BP, Start date: 09/18/15 12:24:00 CDT, Duration: 30 day, Stop date: 12:23:00 CDT Notes: (Same as: Apresoline)Push over 5 minutes Start Date: 09/18/15 Stop Date: 09/19/15 Status: Discontinued hydrochlorothiazide 25 mg oral tablet 25 mg, 1 tab, Route: PO, Drug form: TAB, Daily, Start date: 09/19/15 9:00:00 CDT , Duration: 30 day, Stop date: 10/18/15 9:00:00 CDT Notes: (Same as: Hydrodiuril) With food. Start Date: 09/19/15 Stop Date: 09/19/15 Status: Discontinued hydrochlorothiazide-lisinopril 25 mg-20 mg oral tablet 1 tab, PO, Daily, 0 Refill(s) Start Date: 09/17/15 Status: Ordered hydrochlorothiazide-lisinopril 25 mg-20 mg oral tablet 1 tab, Route: PO, Drug Form: TAB, Dosing Weight 90.909, kg, Daily, Start date: 0 09/19/15 9:00:00 CDT, Duration: 30 day, Stop date: 10/18/15 9:00:00 CDT Start Date: 09/19/15 Stop Date: 09/18/15 Status: Deleted ketOROLAC 30 mg/mL injectable solution 30 mg, 1 mL, Route: IV, Drug form: INJ, Q6H, Dosing Weight 90.909, kg, PRN Heada aki 6-10, Start date: 09/18/15 0:04:00 CDT, Duration: 4 day, Stop date: 09/22/15 0:03:00 CDT Notes: (Same as:Toradol) IV bolus must be given >15 seconds. Give IM administration slowly and deeply into the muscle.Not for use > 4 days MEDICATION WASTE Product Size: 30 mgProduct Wasted: ___ mg Start Date: 09/18/15 Stop Date: 09/19/15 Status: Discontinued KlonoPIN 2 mg, 2 tab, Route: PO, Drug form: TAB, Bedtime, Start date: 09/18/15 21:00:00 C DT, Duration: 30 day, Stop date: 10/17/15 21:00:00 CDT Notes: (Same As: KlonoPIN) Start Date: 09/18/15 Stop Date: 09/19/15 Status: Discontinued KlonoPIN 2 mg oral tablet 2 mg = 1 tab, PO, Bedtime, 0 Refill(s) Start Date: 09/18/15 Status: Ordered lamoTRIgine 100 mg, 1 tab, Route: PO, Drug form: TAB, Daily, Dosing Weight 90.909, kg, Start date: 09/19/15 9:00:00 CDT, Duration: 30 day, Stop date: 10/18/15 9:00:00 CDT Notes: (Same as:LaMICtal) Start Date: 09/19/15 Stop Date: 09/19/15 Status: Discontinued lamoTRIgine 100 mg, PO, Daily, 0 Refill(s) Start Date: 09/17/15 Status: Ordered levothyroxine 50 microgram, 1 tab, Route: PO, Drug form: TAB, Q630AM, Dosing Weight 90.909, kg , Start date: 09/19/15 6:30:00 CDT, Duration: 30 day, Stop date: 10/18/15 6:30:0 0 CDT Notes: Take 1 hour before or 2 hours after meal; Enteral feeds may interefere wi th the absorption of this medication.(Same as:Levothroid, Synthroid) Start Date: 09/19/15 Stop Date: 09/19/15 Status: Discontinued levothyroxine 50 microgram, PO, Q630AM, 0 Refill(s) Start Date: 09/17/15 Status: Ordered metFORMIN 500 mg, 1 tab, Route: PO, Drug form: TAB, Daily, Dosing Weight 90.909, kg, Start date: 09/18/15 12:00:00 CDT, Duration: 30 day, Stop date: 10/17/15 12:00:00 CDT Notes: (Same as: Glucophage) Take with meal Start Date: 09/18/15 Stop Date: 09/19/15 Status: Discontinued metFORMIN 500 mg, PO, Daily, 0 Refill(s) Start Date: 09/17/15 Status: Ordered methylPREDNISolone SODium SUCCinate 100 mg, 1.6 mL, Route: IV, Drug form: INJ, ONCE, Dosing Weight 90.909, kg, Prior ity: STAT, Start date: 09/18/15 11:07:00 CDT, Stop date: 09/18/15 11:07:00 CDT Notes: (Same as:Solu-MEDROL, A-Methapred) Start Date: 09/18/15 Stop Date: 09/18/15 Status: Completed morphine Sulfate 2 mg, Route: IVP, Drug form: INJ, ONCE, Dosing Weight 90.909, kg, Priority: STAT , Start date: 09/17/15 17:41:00 CDT, Stop date: 09/17/15 17:41:00 CDT Start Date: 09/17/15 Stop Date: 09/17/15 Status: Completed [place] 10/325 oral tablet 1 tab, Route: PO, Drug Form: TAB, Dosing Weight 90.909, kg, Q4H, PRN Pain Score 6-10, Start date: 09/18/15 12:25:00 CDT, Duration: 30 day, Stop date: 10/18/15 1 2:24:00 CDT Notes: Do not exceed 4gm/day of acetaminophen. (Same as: [place] 325/10) Start Date: 09/18/15 Stop Date: 09/19/15 Status: Discontinued [place] 5/325 oral tablet 1 tab, Route: PO, Drug Form: TAB, Dosing Weight 90.909, kg, Q4H, PRN Pain Score 4-6, Start date: 09/18/15 12:25:00 CDT, Duration: 30 day, Stop date: 10/18/15 12 :24:00 CDT Notes: (Same as: [place] 325/5) Do not exceed 4gm/day of acetaminophen. Start Date: 09/18/15 Stop Date: 09/19/15 Status: Discontinued NS 1,000 mL 1,000 mL, Rate: 100 ml/hr, Infuse over: 10 hr, Route: IV, Dosing Weight 90.909 k g, Total Volume: 1,000, Start date: 09/18/15 12:27:00 CDT, Duration: 30 day, Sto p date: 10/18/15 12:26:00 CDT Start Date: 09/18/15 Stop Date: 09/19/15 Status: Discontinued Phenergan 12.5 mg, Route: IVPB, ONCE, Dosing Weight 90.909, kg, PRN Nausea & Vomiting, Start date: 09/17/15 18:14:00 CDT, Stop date: 10/17/15 18:13:00 CDT Start Date: 09/17/15 Stop Date: 09/17/15 Status: Completed Prinivil 20 mg, 1 tab, Route: PO, Drug form: TAB, Daily, Start date: 09/19/15 9:00:00 CDT , Duration: 30 day, Stop date: 10/18/15 9:00:00 CDT Notes: (Same as: Prinivil Zestril) Start Date: 09/19/15 Stop Date: 09/19/15 Status: Discontinued Saline Flush 0.9% 10 ml, Route: IVP, Drug Form: INJ, Dosing Weight 90.909, kg, PRN, PRN Line Flush , Start date: 09/17/15 19:23:00 CDT, Duration: 30 day, Stop date: 10/17/15 19:22 :00 CDT Notes: (Same as: BD Posiflush) Start Date: 09/17/15 Stop Date: 09/19/15 Status: Discontinued Saline Flush 0.9% 10 ml, Route: IVP, Drug Form: INJ, Dosing Weight 90.909, kg, Q12H, Start date: 0 09/17/15 21:00:00 CDT, Duration: 30 day, Stop date: 10/17/15 9:00:00 CDT Notes: (Same as: BD Posiflush) Start Date: 09/17/15 Stop Date: 09/19/15 Status: Discontinued Tegretol 600 mg, PO, Bedtime, 0 Refill(s) Start Date: 09/17/15 Status: Ordered Tegretol 400 mg, PO, QNoon, 0 Refill(s) Start Date: 09/17/15 Status: Ordered Topamax 30 mg, Route: PO, Daily, Dosing Weight 90.909, kg, Start date: 09/19/15 9:00:00 CDT, Duration: 30 day, Stop date: 10/18/15 9:00:00 CDT Start Date: 09/19/15 Stop Date: 09/19/15 Status: Discontinued Topamax 30 mg, PO, Daily, 0 Refill(s) Start Date: 09/17/15 Status: Ordered Vicoprofen 7.5 mg-200 mg oral tablet 3 tab, PO, TID, 0 Refill(s) Start Date: 09/17/15 Status: Ordered Xanax 0.5 mg, 1 tab, Route: PO, Drug form: TAB, TID, PRN Anxiety, Start date: 09/18/15 12:54:00 CDT, Duration: 30 day, Stop date: 10/18/15 12:53:00 CDT Notes: With food or milk(Same as: Xanax) Start Date: 09/18/15 Stop Date: 09/19/15 Status: Discontinued Xanax 1 mg, 1 tab, Route: PO, Drug form: TAB, TID, PRN Anxiety, Start date: 09/18/15 1 2:53:00 CDT, Duration: 30 day, Stop date: 10/18/15 12:52:00 CDT Notes: With food or milk(Same as: Xanax) Start Date: 09/18/15 Stop Date: 09/19/15 Status: Discontinued Xanax 2 mg, PO, TID, 0 Refill(s) Start Date: 09/17/15 Stop Date: 09/18/15 Status: Deleted Xanax 1 mg oral tablet 0.5 tab- 1 tab, PO, TID, PRN Anxiety Start Date: 09/18/15 Status: Ordered Zofran 4 mg, 2 mL, Route: IV, Drug form: INJ, Q6H, Dosing Weight 90.909, kg, PRN Nausea , Start date: 09/18/15 12:24:00 CDT, Duration: 30 day, Stop date: 10/18/15 12:23 :00 CDT Notes: (Same as: Zofran) MEDICATION WASTE Product Size: 4 mgProduct Was david: ___ mg Start Date: 09/18/15 Stop Date: 09/19/15 Status: Discontinued Zoloft 150 mg, 3 tab, Route: PO, Drug form: TAB, Daily, Dosing Weight 90.909, kg, Start date: 09/19/15 9:00:00 CDT, Duration: 30 day, Stop date: 10/18/15 9:00:00 CDT Notes: (Same as: Zoloft) Start Date: 09/19/15 Stop Date: 09/19/15 Status: Discontinued Zoloft 150 mg, PO, Daily, 0 Refill(s) Start Date: 09/17/15 Status: Ordered Results ELECTROLYTES 1 2 3 Most recent to oldest [Reference Range]: 139 mEq/L (09/19/15 3:59 AM) 137 mEq/L (09/17/15 1:53 PM) Sodium Lvl [135-145 mEq/L] 3.8 mEq/L (09/19/15 3:59 AM) 4.0 mEq/L (09/17/15 1:53 PM) Potassium Lvl [3.5-5.1 mEq/L] 103 mEq/L (09/19/15 3:59 AM) 101 mEq/L (09/17/15 1:53 PM) Chloride Lvl [95-109 mEq/L] 27 mEq/L (09/19/15 3:59 AM) 28 mEq/L (09/17/15 1:53 PM) CO2 [24-32 mEq/L] 12.8 mEq/L (09/19/15 3:59 AM) 12.0 mEq/L (09/17/15 1:53 PM) AGAP [10.0-20.0 mEq/L] CHEM PANEL 1 2 3 Most recent to oldest [Reference Range]: 0.88 mg/dL (09/19/15 3:59 AM) 0.88 mg/dL (09/17/15 1:53 PM) Creatinine Lvl [0.50-1.40 mg/dL] 75 mL/min/1.73m2 1 *NA* (09/19/15 3:59 AM) 75 mL/min/1.73m2 2 *NA* (09/17/15 1:53 PM) eGFR 21 mg/dL (09/19/15 3:59 AM) 15 mg/dL (09/17/15 1:53 PM) BUN [7-22 mg/dL] 17 (09/17/15 1:53 PM) B/C Ratio [6-25] 150 mg/dL *HI* (09/19/15 3:59 AM) 127 mg/dL *HI* (09/17/15 1:53 PM) Glucose Lvl [70-99 mg/dL] 7.6 g/dL (09/17/15 1:53 PM) Total Protein [6.4-8.4 g/dL] 3.7 g/dL (09/17/15 1:53 PM) Albumin Lvl [3.5-5.0 g/dL] 3.9 g/dL (09/17/15 1:53 PM) Globulin [2.0-4.0 g/dL] 0.9 (09/17/15 1:53 PM) A/G Ratio [0.7-1.6] 7.9 mg/dL *LOW* (09/19/15 3:59 AM) 8.7 mg/dL (09/17/15 1:53 PM) Calcium Lvl [8.5-10.5 mg/dL] 36 unit/L (09/17/15 1:53 PM) ALT [0-65 unit/L] 24 unit/L (09/17/15 1:53 PM) AST [0-37 unit/L] 54 unit/L (09/17/15 1:53 PM) Alk Phos [39-136 unit/L] 0.3 mg/dL (09/17/15 1:53 PM) Bili Total [0.2-1.3 mg/dL] 1Result Comment: The eGFR is calculated [...] be mul tiplied by the estimated BMI. CARDIAC ENZYMES 1 2 3 Most recent to oldest [Reference Range]: 261 unit/L *HI* (09/17/15 1:53 PM) Total CK [12-191 unit/L] 1.7 ng/mL (09/17/15 1:53 PM) CK MB [0.5-3.6 ng/mL] 0.7 (09/17/15 1:53 PM) CK MB Index [0.0-2.5] <0.02 ng/mL (09/17/15 1:53 PM) Troponin-I [0.00-0.40 ng/mL] LIPIDS 1 2 3 Most recent to oldest [Reference Range]: 4.97 (09/17/15 9:29 PM) CHD Risk [3.90-5.80] 169 mg/dL (09/17/15 9:29 PM) Chol [<=199 mg/dL] 202 mg/dL *HI* (09/17/15 9:29 PM) Trig [<=149 mg/dL] 34 mg/dL *LOW* (09/17/15 9:29 PM) HDL [>=61 mg/dL] 95 mg/dL (09/17/15 9:29 PM) LDL (Calculated) [<=99 mg/dL] 40 *NA* (09/17/15 9:29 PM) VLDL SPECIAL CHEMISTRY 1 2 3 Most recent to oldest [Reference Range]: 7.4 % *HI* (09/17/15 9:29 PM) Hgb A1C [<=5.6 %] TOXICOLOGY 1 2 3 Most recent to oldest [Reference Range]: 8.5 ug/ml (09/19/15 3:59 AM) 13.5 ug/ml *HI* (09/18/15 10:01 AM) 17.7 ug/ml 1 *CRIT* (09/17/15 1:53 PM) Carbamaz Lvl [4.0-12.0 ug/ml] 1Result Comment: Critical Result(s) called to Tonja Scott at 09/17/2015 17:26 by MADDIE. Read back OK. URINE AND STOOL 1 2 3 Most recent to oldest [Reference Range]: Clear (09/17/15 1:24 PM) UA Turbidity [Clear] Yellow *NA* (09/17/15 1:24 PM) UA Color [Yellow] 7.0 (09/17/15 1:24 PM) UA pH [5.0-8.0] 1.018 (09/17/15 1:24 PM) UA Spec Grav [<=1.030] Negative mg/dL *NA* (09/17/15 1:24 PM) UA Glucose [Negative mg/dL] Small *ABN* (09/17/15 1:24 PM) UA Blood [Negative] Negative mg/dL *NA* (09/17/15 1:24 PM) UA Ketones [Negative mg/dL] Negative mg/dL (09/17/15 1:24 PM) UA Protein [Negative mg/dL] <=1.0 mg/dL *NA* (09/17/15 1:24 PM) UA Urobilinogen [0.1-1.0 mg/dL] Negative *NA* (09/17/15 1:24 PM) UA Bili [Negative] Small *ABN* (09/17/15 1:24 PM) UA Leuk Est [Negative] Negative (09/17/15 1:24 PM) UA Nitrite [Negative] 16 /HPF *HI* (09/17/15 1:24 PM) UA WBC [0-5 /HPF] 6 /HPF *HI* (09/17/15 1:24 PM) UA RBC [0-2 /HPF] Occasional /HPF *NA* (09/17/15 1:24 PM) UA Bacteria [None Seen /HPF] Moderate /LPF *ABN* (09/17/15 1:24 PM) UA Sq Epi [Few /LPF] 3 /LPF *HI* (09/17/15 1:24 PM) UA Hyal Cast [0-2 /LPF] Few /LPF *NA* (09/17/15 1:24 PM) UA Mucus [None Seen /LPF] HEMATOLOGY 1 2 3 Most recent to oldest [Reference Range]: 6.5 K/CMM (09/19/15 3:59 AM) 4.8 K/CMM (09/17/15 1:53 PM) WBC [3.7-10.4 K/CMM] 4.55 M/CMM (09/19/15 3:59 AM) 5.12 M/CMM (09/17/15 1:53 PM) RBC [4.20-5.40 M/CMM] 9.0 g/dL *LOW* (09/19/15 3:59 AM) 10.0 g/dL *LOW* (09/17/15 1:53 PM) Hgb [12.0-16.0 g/dL] 28.7 % *LOW* (09/19/15 3:59 AM) 32.3 % *LOW* (09/17/15 1:53 PM) Hct [36.0-48.0 %] 63.1 fL *LOW* (09/19/15 3:59 AM) 63.1 fL *LOW* (09/17/15 1:53 PM) MCV [80.0-98.0 fL] 19.9 pg *LOW* (09/19/15 3:59 AM) 19.6 pg *LOW* (09/17/15 1:53 PM) MCH [27.0-31.0 pg] 31.5 g/dL *LOW* (09/19/15 3:59 AM) 31.1 g/dL *LOW* (09/17/15 1:53 PM) MCHC [32.0-36.0 g/dL] 15.4 % *HI* (09/19/15 3:59 AM) 15.6 % *HI* (09/17/15 1:53 PM) RDW [11.5-14.5 %] 154 K/CMM (09/19/15 3:59 AM) 174 K/CMM (09/17/15 1:53 PM) Platelet [133-450 K/CMM] 9.1 fL (09/19/15 3:59 AM) 8.6 fL (09/17/15 1:53 PM) MPV [7.4-10.4 fL] 66.1 % (09/19/15 3:59 AM) 58.5 % (09/17/15 1:53 PM) Segs [45.0-75.0 %] 27.8 % (09/19/15 3:59 AM) 30.3 % (09/17/15 1:53 PM) Lymphocytes [20.0-40.0 %] 5.1 % (09/19/15 3:59 AM) 5.0 % (09/17/15 1:53 PM) Monocytes [2.0-12.0 %] 0.5 % (09/19/15 3:59 AM) 5.1 % *HI* (09/17/15 1:53 PM) Eosinophils [0.0-4.0 %] 0.5 % (09/19/15 3:59 AM) 1.1 % *HI* (09/17/15 1:53 PM) Basophils [0.0-1.0 %] 4.3 K/CMM (09/19/15 3:59 AM) 2.8 K/CMM (09/17/15 1:53 PM) Segs-Bands # [1.5-8.1 K/CMM] 1.8 K/CMM (09/19/15 3:59 AM) 1.5 K/CMM (09/17/15 1:53 PM) Lymphocytes # [1.0-5.5 K/CMM] 0.3 K/CMM (09/19/15 3:59 AM) 0.2 K/CMM (09/17/15 1:53 PM) Monocytes # [0.0-0.8 K/CMM] 0.2 K/CMM (09/17/15 1:53 PM) Eosinophils # [0.0-0.5 K/CMM] 0.1 K/CMM (09/17/15 1:53 PM) Basophils # [0.0-0.2 K/CMM] 3+ *NA* (09/19/15 3:59 AM) 3+ *NA* (09/17/15 1:53 PM) Microcyte [None Seen] Immunizations No data available for this section Procedures Procedure Date Related Diagnosis Body Site Carotid endarterectomy1 04/09/14 Hysterectomy 1998 Discectomy 1996 Cholecystectomy 1994 Decompression of ulnar nerve 1left Social History Social History Type Response Substance Abuse Use: None. Employment/School Highest education level: [employer].1 Alcohol Never Smoking Status Former smoker; Type: Cigare ttes; Exposure to Tobacco Smoke None; Cigarette Smoking Last 365 Days No; Reg Smoking C essation Counseling No 1Associate degree Assessment and Plan Extracted from: Title: Clinical Document Author: Russ Dhillon DO Torey e: 09/19/15 Progress Daily [facility] Completed: Saturday, SEPTEMBER 19, 2015, 13:24 by Russ Dhillon DO RM: 89 - 1D, SE [id number] (: 1960) F Attending: Dago Rogers MDPhone: Service: Internal Medicine Reason for Admission: NEW ONSET ATAXIA Working DRG: Dysequilibrium Code status: None Specified=FULL CODECurrent diet: Isolation: None Documented Allergies: penicillins SUBJECTIVE Patient seen and examined. Events noted overnight. Labs/Images reviewed pt states that headache is better OBJECTIVE Labs (Last four charted values) WBC 6.5(SEPTEMBER 18)4.8(SEPTEMBER 16) Hgb L 9.0(SEPTEMBER 18)L 10.0(SEPTEMBER 16) Hct L 28.7(SEPTEMBER 18)L 32.3(SEPTEMBER 16) Plt 154(SEPTEMBER 18)174(SEPTEMBER 16) Na 139(SEPTEMBER 18)137(SEPTEMBER 16) K 3.8(SEPTEMBER 18)4.0(SEPTEMBER 16) CO2 27(SEPTEMBER 18)28(SEPTEMBER 16) Cl 103(SEPTEMBER 18)101(SEPTEMBER 16) Cr 0.88(SEPTEMBER 18)0.88(SEPTEMBER 16) BUN 21(SEPTEMBER 18)15(SEPTEMBER 16) Glucose Random H 150(SEPTEMBER 18)H 127(SEPTEMBER 16) Ca L 7.9(SEPTEMBER 18)8.7(SEPTEMBER 16) Troponin <0.02(SEPTEMBER 16) CK MB 1.7(SEPTEMBER 16) Total CK H 261(SEPTEMBER 16) ASSESSMENT & EXAM Gen: NAD, Alert, Awake HEENT: NC/AT, PERRLA, oral area clear and moist Neck: No LAD, No JVD, trachea midline Chest: CTAB, no c/w/r CV: RRR, S1, S2 GI: +BS, S, NT, ND, No organomegaly Ext: no c/c/e Neuro: AOx3, no gross deficits noted Skin: No notable rashes PLAN & TREATMENT tegretol level normalized no further w/u per neurology d/w pt to adjust tegeretol level with primary neurologist ok to dc home today per therapy - home health sfety eval migarine headache improved DIAGNOSES & PROBLEMS 1. Carbamazepine toxicity. 2. Drug side effect. 3. Presumed benign positional vertigo. 4. History of hypertension, type 2 diab etes, hyperlipidemia. Ready for Discharge (Yes/No)? [place] still necessary (Yes/No): Line still necessary (Yes/No): 24hr Labs 09/18 0359 Glucose Few839 H BUN21 Creatinine Lvl0.88 Sodium Gli374 Potassium Lvl3.8 Chloride Vlm432 CO227 AGAP12.8 Calcium Lvl7.9 L eGFR75 Carbamaz Lvl8.5 WBC6.5 RBC4.55 Hgb9.0 L Hct28.7 L MCV63.1 L MCH19.9 L MCHC31.5 L RDW15.4 H Hiblylfp578 MPV9.1 Segs66.1 Monocytes5.1 Eqeccfnavma00.8 Eosinophils0.5 Basophils0.5 Segs-Bands #4.3 Lymphocytes #1.8 Monocytes #0.3 Microcyte3+ VitalsTmp(F)[id number] 09/18 11:4097.9---176/84--96--- 09/18 08:[id number]/186161--- 09/18 03:2298.002981/324392--- 09/18 00:07----93496/90-------- 09/17 23:[id number]/[id number]--- 24 Hr Tmax: 98.2F (36.78c) at 09/17 23:1 8Vital Signs are the last 5 in the past 48 hours. DateWt(kg)Wt(lb)Ht(cm)Ht(in)Method 09/16 (initial) 90.91 200.00Estimated 10847.88 72.00Stated I&ORecordInOutBal 4hr Tot 0 0 0 1224hr Tot 946 0 946 Medications (25) Active [...] Daily 09/18/15 non-formulary (RN-Bring pt's own Abilify & Topamax sprinkles for labeling) MISC QSHIFT 09/19/15 [...]
== END 2019-10-10 16:58 | disposition left against medical advice (07) ==
LOC: ER 14:52
DX: R50.9 Fever, unspecified (principal)